=== PATIENT | female | born 1955 | race Caucasian/White ===

== ENCOUNTER 2020-08-21 | Outpatient (REF) | payer OTHER, SELFPAY ==
--- NOTE | 2020-08-21 08:51 | MR_ITS ---
EXAMINATION: MR BREAST WITHOUT AND WITH CONTRAST, BILATERAL CLINICAL INFORMATION: 65-year-old for history of lobular carcinoma in situ right breast high-risk screening. COMPARISON: MRI of 08/03/2019, 12/09/2018, 08/12/2018, and 01/21/2017. Correlation to mammogram of 04/11/2020. TECHNIQUE: Imaging was performed with a dedicated breast coil. Prior to the administration of contrast, bilateral axial T1 and bilateral axial T2 weighted sequences were obtained. After the uneventful administration of?6 mL of Gadavist, dynamic contrast-enhanced VIBRANT series through the breasts in the axial plane were performed. Subtracted images were performed and reviewed. A delayed sagittal sequence through both breasts was acquired. Additionally, CAD post-processing, including maximum intensity projections, 3-D reconstructions and kinetic analysis, were performed an independent workstation and reviewed by the interpreting radiologist is a portion of this exam. FINDINGS: The patient's fibroglandular tissue is heterogeneously dense. There is mild background enhancement. LEFT BREAST: There is a stable enhancing T2 bright focus in the 9 o'clock position which may represent an intramammary lymph node. The 7 mm enhancing T2 bright mass in the 9 o'clock position of the breast 4 cm from the nipple is also stable and unchanged. There are no new areas of mass or non-mass enhancement suspicious of malignancy. There are no secondary signs of malignancy. There are no additional findings on T2-weighted imaging or kinetic curve analysis. RIGHT BREAST: The 2 mm enhancing focus previously described in the 9 o'clock position of the breast breast is not seen on this study . There are no new areas of mass or non-mass enhancement. There are no secondary signs of malignancy. The previously described enhancing focus on the skin in the 1-2 o'clock position is also not seen at this time. There are no additional findings on T2-weighted imaging or kinetic curve analysis. There is no suspicious internal mammary chain or axillary adenopathy. Limited views of the chest and abdomen are unremarkable. MR/MR breast BI wo/w con IMPRESSION: 1. Stable findings in the left breast. 2. No suspicious MRI findings in either breast. ASSESSMENT: LEFT BREAST: BI-RADS 2 benign. RIGHT BREAST: BI-RADS 1 negative. RECOMMENDATIONS: Routine mammographic imaging as per most recent study and MRI as per high risk protocol.
[2020-08-21 09:29] LABS: Blood Urea Nitrogen 9 mg/dL (9-16); Estimated Glomerular Filt Rate > 60
== END 2020-08-21 00:01 | disposition home or self-care (01) ==
LOC: HO.MRI
PROVIDERS: PCP Internal Medicine; Visit Provider Surgery
DX: D05.01 Lobular carcinoma in situ of right breast (principal); R92.2 Inconclusive mammogram
CPT/HCPCS: 77049; 82565; 84520; A9585

== ENCOUNTER → 2020-08-28 15:43 | Outpatient (BNVA) | payer OTHER, SELFPAY | PROVIDERS: PCP Internal Medicine; Visit Provider Surgery | DX: Z76.89 Persons encountering health services in other specified circumstances (principal) ==

== ENCOUNTER 2021-01-08 09:25 | Outpatient (REF) | payer OTHER, SELFPAY ==
[2021-01-08 09:49] LABS: COVID-19 Test Negative (Negative); IDNOW Serial# 55D5AD1C
== END 2021-01-08 09:26 | disposition home or self-care (01) ==
LOC: HO.LAB 09:25
PROVIDERS: Visit Provider Internal Medicine
DX: Z20.822 Contact with and (suspected) exposure to COVID-19 (principal)
CPT/HCPCS: 36415; 87635; C9803

== ENCOUNTER → 2021-02-25 09:28 | Outpatient (BNVA) | payer OTHER, SELFPAY | PROVIDERS: PCP Internal Medicine; Visit Provider Surgery ==

== ENCOUNTER 2021-05-06 07:28 | Outpatient (REF) | payer MEDICARE, OTHER, SELFPAY ==
--- NOTE | ~2021-05-06 | MM_ITS ---
EXAMINATION: MM SCREENING MAMMOGRAPHY DIGITAL BREAST TOMOSYNTHESIS, BILATERAL CLINICAL INFORMATION: Screening. Asymptomatic. History of left breast biopsy in 2011 showing atypical lobular hyperplasia. The lifetime risk of breast cancer based on the Tyrer-Cuzick Model is 23.6%. Additional annual screening with breast MRI may be of benefit in women with a Score of 20% or greater. COMPARISON: Mammography: 08/21/2020 and studies dating back to 10/20/2011. TECHNIQUE: Digital breast tomosynthesis was performed in both the craniocaudal and mediolateral oblique views along with computer-aided detection (CAD). Synthesized 2D images are generated from the tomosynthesis. FINDINGS: The breasts are extremely dense, which lowers the sensitivity of mammography (ACR BI-RADS breast composition Category d). No suspicious left breast findings are identified. Within the superior aspect of the right breast approximately 4 cm from the nipple, there is an asymmetric density with questioned spiculation with no definite craniocaudal correlation identified which is similar to but looks slightly more prominent than on prior studies. Spot compression film and possible ultrasound recommended. MM/MM tomosynthesis screening BI IMPRESSION: Slightly more prominent, irregularly marginated density superior aspect of the right breast. ASSESSMENT: BI-RADS 0: Incomplete - Need Additional Imaging Evaluation RECOMMENDATION: 1. Additional views of the right breast. 2. Targeted ultrasound if warranted after review of the additional views. 3. Radiology department staff will contact the patient for additional imaging. This patient's information was entered into a reminder system with a target due date for their next mammogram.
--- NOTE | ~2021-05-06 | MM_ITS ---
EXAMINATION: BONE DENSITOMETRY CLINICAL INDICATION: Osteoporosis. COMPARISON: Previous BD dated 12/11/2016 and baseline BD dated 12/15/2011. TECHNIQUE: Using a [employer] DXA System (software version: 13.1) manufactured by [employer], dual-energy x-ray absorptiometry was performed of the lumbar spine and left hip. The images are of good technical quality. Summary results are attached. FINDINGS: AP SPINE L1-L4: Current: BMD 1.119 g/cm2, Z-score 1.3, T-score -0.5, normal, 0.3% decrease from previous, 9.8% decrease from baseline (<5% change is not significant). Prior: BMD 1.122 g/cm2. Baseline: BMD 1.240 g/cm2. LEFT FEMUR, NECK: Current: BMD 0.898 g/cm2, Z-score 0.6, T-score -1.0, normal. Prior: BMD 0.907 g/cm2. Baseline: BMD 0.967 g/cm2. LEFT FEMUR, TOTAL: Current: BMD 0.974 g/cm2, Z-score 1.1, T-score -0.3, normal, 0.1% increase from previous, 6.2% decrease from baseline (<5% change is not significant). Prior: BMD 0.973 g/cm2. Baseline: BMD 1.038 g/cm2. IDENTIFIED RISK FACTORS: Menopause. HISTORY OF FRACTURE: None listed. MEDICATIONS: Vitamin D. MM/XR DEXA axial skeleton IMPRESSION: 1. DIAGNOSIS: Normal bone density based on the lowest T-score value of -1.0 in the femoral neck applying World Health Organization criteria. 2. 10-YEAR FRACTURE RISK PREDICTION, FRAX: According to the guidelines, FRAX calculation should only be performed on patients in the osteopenia bone density category. Therefore, FRAX was not performed on this patient. 3. Treatment Recommendations: NOF guidelines recommend consideration for treatment in postmenopausal women and men age 50 and older presenting with the following: -A hip or vertebral (clinical or morphometric) fracture. -T-score less than or equal to -2.5 at the femoral neck or spine after appropriate evaluation to exclude secondary causes. -Low bone mass at the hip or spine and a 10-year fracture probability by FRAX of greater than or equal to 3% for hip fracture or greater than or equal to 20% for major osteoporotic fracture based on the [place] adapted WHO algorithm. 4. Other Recommendations: All treatment decisions require clinical judgment and consideration of individual patient factors, including patient preferences, comorbidities, previous drug use, risk factors not captured in the FRAX model (e.g. frailty, falls, vitamin D deficiency, increased bone turnover, interval significant decline in bone density) and possible under or overestimation of fracture risk by FRAX. FUTURE SCAN RECOMMENDATION: People with diagnosed cases of osteoporosis or at high risk for fracture should have regular bone mineral density tests. For patients eligible for Medicare, routine testing is allowed once every 2 years. The testing frequency can be increased to one year for patients who have rapidly progressing disease, those who are receiving or discontinuing medical therapy to restore bone mass, or have additional risk factors.
== END 2021-05-06 07:29 | disposition home or self-care (01) ==
LOC: HO.MAMMO 07:28
PROVIDERS: Visit Provider Obstetrics & Gynecology
DX: Z12.31 Encounter for screening mammogram for malignant neoplasm of breast (principal); Z13.820 Encounter for screening for osteoporosis; Z78.0 Asymptomatic menopausal state; Z79.899 Other long term (current) drug therapy
CPT/HCPCS: 77063; 77067; 77080

== ENCOUNTER 2021-05-13 07:49 | Outpatient (REF) | payer MEDICARE, OTHER, SELFPAY ==
--- NOTE | ~2021-05-13 | MM_ITS ---
EXAMINATION: MM DIAGNOSTIC DIGITAL BREAST TOMOSYNTHESIS, right breast CLINICAL INFORMATION: History of right breast LCIS status post lumpectomy. COMPARISON: Mammography: May 06, 2021 and studies dating back to October 20, 2011 TECHNIQUE: Digital breast tomosynthesis is performed. 2D images are generated from the tomosynthesis. The following views are obtained: Right medial lateral oblique projection as well as spot compression right 90 degree mediolateral projection. FINDINGS: The breasts are heterogeneously dense, which may obscure small masses (ACR BI-RADS breast composition Category c). The additional views demonstrate the region of architectural distortion to lay in the region of the previous lumpectomy site. Results are provided to the patient at time of visit by the technologist. MM/MM tomosynthesis added views R IMPRESSION: No significant changes from prior imaging. ASSESSMENT: BI-RADS 2: Benign RECOMMENDATION: Routine annual mammography screening due in 12 months. This patient's information was entered into a reminder system with a target due date for their next mammogram.
== END 2021-05-13 07:50 | disposition home or self-care (01) ==
LOC: HO.MAMMO 07:49
PROVIDERS: Visit Provider Obstetrics & Gynecology
DX: R92.2 Inconclusive mammogram (principal)
CPT/HCPCS: 77061; 77065

== ENCOUNTER 2021-09-17 09:07 | Outpatient (REF) | payer OTHER, SELFPAY ==
--- NOTE | ~2021-09-17 | MR_ITS ---
EXAMINATION: MR BREAST WITHOUT AND WITH CONTRAST, BILATERAL CLINICAL INFORMATION: High-risk screening. History of right LCIS. COMPARISON: MRI 08/03/2019, 08/21/2020 TECHNIQUE: Imaging was performed with a dedicated breast coil. Prior to the administration of contrast, bilateral axial T1 and bilateral axial T2 weighted sequences were obtained. After the uneventful administration of?6 mL of Gadavist, dynamic contrast-enhanced VIBRANT series through the breasts in the axial plane were performed. Subtracted images were performed and reviewed. A delayed sagittal sequence through both breasts was acquired. Additionally, CAD post-processing, including maximum intensity projections, 3-D reconstructions and kinetic analysis, were performed an independent workstation and reviewed by the interpreting radiologist is a portion of this exam. FINDINGS: The patient's fibroglandular tissue demonstrates minimal background enhancement. LEFT BREAST: No suspicious masslike or non-masslike enhancement. No abnormal skin thickening or nipple retraction. No abnormal architectural distortion. Review of the T2 weighted images demonstrates no fibrocystic changes or dilated ducts. Review of kinetic images reveals no additional findings. RIGHT BREAST: No suspicious masslike or non-masslike enhancement. No abnormal skin thickening or nipple retraction. No abnormal architectural distortion. Review of the T2 weighted images demonstrates no fibrocystic changes or dilated ducts. Review of kinetic images reveals no additional findings. There is no suspicious internal mammary chain or axillary adenopathy. Limited views of the chest and abdomen are unremarkable. MR/MR breast BI wo/w con IMPRESSION: No MR specific evidence of malignancy. ASSESSMENT: LEFT BREAST: BI-RADS 1-Negative RIGHT BREAST: BI-RADS 1-Negative RECOMMENDATIONS: Clinical follow-up. Continued annual mammographic surveillance. Further breast MRI as risk factors dictate.
[2021-09-17 09:32] LABS: Blood Urea Nitrogen 12 mg/dL (9-16); Estimated Glomerular Filt Rate > 60
== END 2021-09-17 09:08 | disposition home or self-care (01) ==
LOC: HO.MRI 09:07
PROVIDERS: Visit Provider Surgery
DX: Z86.000 Personal history of in-situ neoplasm of breast (principal)
CPT/HCPCS: 36415; 77049; 82565; 84520; A9585

== ENCOUNTER → 2021-10-14 09:04 | Outpatient (BNVA) | payer OTHER, SELFPAY | PROVIDERS: PCP Internal Medicine; Visit Provider Surgery ==

== ENCOUNTER 2022-05-11 07:22 | Outpatient (REF) | payer OTHER, SELFPAY ==
--- NOTE | ~2022-05-11 | MM_ITS ---
EXAMINATION: MM SCREENING DIGITAL BREAST TOMOSYNTHESIS, BILATERAL CLINICAL INFORMATION: Screening. Asymptomatic. Right LCIS status post lumpectomy, 2010. The lifetime risk of breast cancer based on the Tyrer-Cuzick Model is 39%. COMPARISON: Mammography: 05/13/2021, 05/06/2021, 04/11/2020, 12/23/2018; breast MR 09/17/2021. TECHNIQUE: Digital breast tomosynthesis is performed in both the craniocaudal and mediolateral oblique views along with computer-aided detection (CAD). Synthesized 2D images are generated from the tomosynthesis. FINDINGS: The breasts are heterogeneously dense, which may obscure small masses (ACR BI-RADS breast composition Category c). Parenchymal pattern is similar to prior studies. There is no developing density or architectural abnormality. Scattered punctate calcifications are similar to prior studies. No interval mass. The axilla and skin contours are unremarkable. No significant changes. MM/MM tomosynthesis screening BI IMPRESSION: No mammographic evidence of malignancy. ASSESSMENT: BI-RADS 1: Negative RECOMMENDATION: -Routine annual mammography screening. -The lifetime risk of breast cancer based on the Tyrer-Cuzick Model is 39%. Additional annual adjunct screening with breast MRI may be of benefit in women with a risk score of 20% or greater. This patient's information was entered into a reminder system with a target due date for their next mammogram.
== END 2022-05-11 07:23 | disposition home or self-care (01) ==
LOC: HO.MAMMO 07:22
PROVIDERS: Absent Provider Surgery; Visit Provider Internal Medicine
DX: Z12.31 Encounter for screening mammogram for malignant neoplasm of breast (principal)
CPT/HCPCS: 77063; 77067

== ENCOUNTER 2022-09-29 08:46 | Outpatient (REF) | payer OTHER, SELFPAY ==
--- NOTE | ~2022-09-29 | MR_ITS ---
EXAMINATION: MR BREAST WITHOUT AND WITH CONTRAST, BILATERAL CLINICAL INFORMATION: High-risk screening. History of lobular neoplasia right breast. Dense breasts. COMPARISON: 09/17/2021, 08/21/2020, and selected images from priors. Mammography from 05/11/2022. TECHNIQUE: Imaging was performed with a dedicated breast coil. Prior to the administration of contrast, bilateral axial T1 and bilateral axial T2 weighted sequences were obtained. After the uneventful administration of?6 mL of Gadavist, dynamic contrast-enhanced VIBRANT series through the breasts in the axial plane were performed. Subtracted images were performed and reviewed. A delayed sagittal sequence through both breasts was acquired. Additionally, CAD post-processing, including maximum intensity projections, 3-D reconstructions and kinetic analysis, were performed an independent workstation and reviewed by the interpreting radiologist is a portion of this exam. FINDINGS: The breasts are comprised of heterogeneous, dense fibroglandular parenchyma. The parenchyma undergoes mild background enhancement. LEFT BREAST: There is a dominant 10 mm non-mass enhancement at 9 o'clock, 4.5 cm from the nipple (series 100 image 75/114). This is decreased in conspicuity compared with 2020. T2 bright with type I and II enhancement kinetics. Recommend continued yearly followup. A similar smaller 5 mm non-mass enhancement at 8 o'clock, 5 cm from the nipple (image 79/114) is likewise stable. A small stable 2 mm focus at 3 o'clock, 2 cm from the nipple (image 75). Foci of skin enhancement are noted along the medial aspect of the left breast (example image 55). Clinical correlation suggested. RIGHT BREAST: A dominant 5 mm focus at 9 o'clock, 2.5 cm from the nipple (image 70/114) is unchanged. T2 bright with type I progressive enhancement kinetics. A nearby similar 4 mm focus at 10 o'clock, 2.5 cm from the nipple (image 69) is likewise stable. A smaller similar 3 mm focus in the 3 o'clock, deep position of the right breast (image 68) is likewise stable. No additional findings on T2-weighted sequences, volume renderings or kinetic analysis. There is no suspicious internal mammary chain or axillary adenopathy. T2 bright nonenhancing 10 mm mass in the dome of the liver most consistent with a cyst, unchanged compared with priors. MR/MR breast BI wo/w con IMPRESSION: No screening MR evidence of breast malignancy. Stable bilateral foci as above. ASSESSMENT: LEFT BREAST: BI-RADS 2, benign finding. RIGHT BREAST: BI-RADS 2, benign finding. RECOMMENDATIONS: Yearly bilateral breast MRI per published guidelines in high-risk patients.
== END 2022-09-29 08:47 | disposition home or self-care (01) ==
LOC: HO.MRI 08:46
PROVIDERS: Visit Provider Surgery
DX: Z86.000 Personal history of in-situ neoplasm of breast (principal); Z91.89 Other specified personal risk factors, not elsewhere classified
CPT/HCPCS: 77049; A9585

== ENCOUNTER → 2022-11-03 12:49 | Outpatient (BNVA) | payer OTHER, SELFPAY | PROVIDERS: PCP Internal Medicine; Visit Provider Psychiatry & Neurology Psychiatry | DX: Z86.000 Personal history of in-situ neoplasm of breast (principal) ==

== ENCOUNTER → 2022-11-19 08:50 | Outpatient (BNVA) | payer OTHER, SELFPAY | PROVIDERS: PCP Internal Medicine; Visit Provider Surgery | DX: Z13.89 Encounter for screening for other disorder (principal) ==

== ENCOUNTER 2023-05-06 10:07 | Outpatient (REF) | payer OTHER, SELFPAY ==
[2023-05-06 12:48] LABS: MANUAL DIFF FLAG NO
[2023-05-06 12:52] LABS: Basophils Absolute Auto 0.1 X10*3/uL (0.0-0.2); Basophils Percent Auto 1.1 % (0-2); Eosinophils Absolute Auto 0.5 X10*3/uL (0.0-0.4); Eosinophils Percent Auto 8.6 % (0-4); Hemoglobin 12.5 g/dl (12.0-16.0); Imm Gran Abs Auto 0.01 X10*3/uL (0.00-0.03); Imm Gran Pct Auto 0.2 % (0.0-0.4); Lymphocytes Absolute Auto 1.4 X10*3/uL (1.2-4.9); Lymphocytes Percent Auto 24.5 % (20-40); Mean Corpuscular HGB Conc 32.1 g/dl (31.0-35.0); Mean Corpuscular Hemoglobin 30.3 pg (27.0-33.0); Mean Corpuscular Volume 94.7 fL (80.0-98.0); Mean Platelet Volume 9.7 fL (9.4-12.3); Monocytes Absolute Auto 0.7 X10*3/uL (0.1-1.2); Monocytes Percent Auto 12.3 % (2-11); Neutrophils Percent Auto 53.3 % (45-73); Platelet Count 416 X10*3/uL (160-400); Red Blood Count 4.12 X10*6/uL (4.20-5.50); Red Cell Distribution Width 13.8 % (11.0-16.0); White Blood Count 5.6 X10*3/uL (4.8-10.8)
[2023-05-06 12:56] LABS: INTERNATIONAL NORM RATIO 0.9 (0.9-1.1); Prothrombin Time 11.2 SEC (11.1-13.3)
[2023-05-06 13:33] LABS: Erythrocyte Sedimentation Rate 34 MM/HR (0-20)
[2023-05-06 14:04] LABS: Alanine Aminotransferase 49 U/L (0-31); Albumin Level 4.1 g/dL (3.5-5.0); Alkaline Phosphatase 513 U/L (39-117); Aspartate Amino Transferase 47 U/L (5-31); Bilirubin Direct 0.2 mg/dL (0.0-0.5); Bilirubin Total 0.5 mg/dL (0.0-1.0); C Reactive Protein 0.74 mg/dL (< or = 0.50); Iron 90 mcg/dL (30-160); Percent Iron Saturation 32 % (15-50); Total Iron Binding Capacity 285 mcg/dL (228-428); Total Protein 7.6 g/dL (6.5-8.0); Unsaturated Iron Binding 195 ug/dL
[2023-05-06 14:18] LABS: Ferritin 33 ng/mL (10-250)
[2023-05-07 09:46] LABS: HBS Num1 0.24 mIU/mL (0-7.99); HBc Num1 0.12 S/CO (0.00-0.79); HBsAGNum1 0.32 S/CO (0.00-0.99); Hepatitis A Antibody IgM 0.15 Index (0-0.79); Hepatitis B Core Antibody Nonreactive (Nonreactive); Hepatitis B Surface Antigen Negative (Negative); ~HepC Num1 0.19 S/CO (0.00-0.79); ~Hepatitis A Antibody IgM Nonreactive (Nonreactive); ~Hepatitis B Surface Antibody NONREACTIVE (Nonreactive); ~Hepatitis C Antibody Nonreactive (Nonreactive)
[2023-05-10 13:29] LABS: Alpha 1 Anti-trypsin 146 mg/dL (83-199)
[2023-05-11 11:35] LABS: Anti Nuclear Antibody Screen NEGATIVE (NEGATIVE)
[2023-05-11 13:48] LABS: Smooth Muscle Antibody 38 U (<20)
[2023-05-11 14:24] LABS: Mitochondrial Antibodies NEGATIVE (NEGATIVE)
[2023-05-12 18:13] LABS: Alk.Phos Iso. Macrohepatic 19 % (<=0); Alk.Phos Isoenzymes Bone 28 % (28-66); Alk.Phos Isoenzymes Intest 0 % (1-24); Alk.Phos Isoenzymes Liver 53 % (25-69); Alk.Phos Isoenzymes Placental 0 % (<=0); Alk.Phos Isoenzymes Total 462 U/L (37-153)
== END 2023-05-06 10:08 | disposition home or self-care (01) ==
LOC: HO.10HDL 10:07
PROVIDERS: Visit Provider Internal Medicine
DX: R79.89 Other specified abnormal findings of blood chemistry (principal); R74.8 Abnormal levels of other serum enzymes
CPT/HCPCS: 36415; 80076; 82103; 82728; 83540; 84080; 85025; 85610; 85652; 86015; 86038; 86140; 86381; 86704; 86706; 86709; 86803; 87340

== ENCOUNTER 2023-05-13 07:21 | Outpatient (REF) | payer OTHER, SELFPAY ==
--- NOTE | ~2023-05-13 | MM_ITS ---
EXAMINATION: MM SCREENING DIGITAL BREAST TOMOSYNTHESIS, BILATERAL CLINICAL INFORMATION: Screening. Asymptomatic. The patient has a history of prior right breast excision for LCIS in 2010. COMPARISON: Mammography: This study is compared with prior exams dating back to 2020. TECHNIQUE: Digital breast tomosynthesis is performed in both the craniocaudal and mediolateral oblique views along with computer-aided detection (CAD). Synthesized 2D images are generated from the tomosynthesis. FINDINGS: The breasts are heterogeneously dense, which may obscure small masses (ACR BI-RADS breast composition Category c). There are no significant masses, abnormal calcifications, or other abnormalities. There are postsurgical changes in the lateral aspect of the right breast from prior surgery for LCIS. MM/MM tomosynthesis screening BI IMPRESSION: No mammographic evidence of malignancy. ASSESSMENT: BI-RADS BI-RADS 2 - Benign Findings RECOMMENDATION: Routine annual mammography screening. 1 year F/U This examination should not preclude the clinical evaluation of a suspicious palpable abnormality. This patient's information was entered into a reminder system with a target due date for their next mammogram.
== END 2023-05-13 07:22 | disposition home or self-care (01) ==
LOC: HO.MAMMO 07:21
PROVIDERS: PCP Nurse Practitioner Primary Care; Visit Provider Nurse Practitioner Primary Care
DX: Z12.31 Encounter for screening mammogram for malignant neoplasm of breast (principal)
CPT/HCPCS: 77063; 77067

== ENCOUNTER → 2023-05-13 07:30 | Outpatient (BNV) | payer OTHER, SELFPAY | PROVIDERS: PCP Nurse Practitioner Primary Care; Visit Provider Radiology Diagnostic Radiology | DX: Z12.31 Encounter for screening mammogram for malignant neoplasm of breast (principal) | CPT/HCPCS: 77063; 77067 ==

== ENCOUNTER 2023-05-22 09:59 | Outpatient (REF) | payer OTHER, SELFPAY ==
[2023-05-22 11:34] LABS: Alanine Aminotransferase 46 U/L (0-31); Alkaline Phosphatase 506 U/L (39-117); Anion Gap 12 (12-20); Aspartate Amino Transferase 41 U/L (5-31); Bilirubin Direct 0.1 mg/dL (0.0-0.5); Bilirubin Total 0.5 mg/dL (0.0-1.0); Blood Urea Nitrogen 11 mg/dL (9-16); Calcium 10.5 mg/dL (8.4-10.2); Carbon Dioxide 28 mmol/L (22-29); Chloride 108 mmol/L (96-108); Estimated Glomerular Filt Rate > 60; Glucose Random 90 mg/dL (60-115); Potassium 4.3 mmol/L (3.3-5.1); Sodium 144 mmol/L (135-145); Total Protein 7.4 g/dL (6.5-8.0)
[2023-05-25 13:54] LABS: Mitochondrial Antibodies NEGATIVE (NEGATIVE)
[2023-05-27 06:35] LABS: Liver Kidney Microsomal Ab <=20.0 U (<=20.0)
== END 2023-05-22 10:00 | disposition home or self-care (01) ==
LOC: HO.LAB 09:59
PROVIDERS: PCP Nurse Practitioner Primary Care; Visit Provider Internal Medicine
DX: R74.8 Abnormal levels of other serum enzymes (principal); R79.89 Other specified abnormal findings of blood chemistry
CPT/HCPCS: 36415; 80048; 80076; 86376; 86381

== ENCOUNTER 2023-05-24 10:19 | Outpatient (REF) | payer OTHER, SELFPAY ==
--- NOTE | ~2023-05-24 | MR_ITS ---
EXAMINATION: MR ABDOMEN WITHOUT AND WITH CONTRAST CLINICAL INFORMATION: Elevated alkaline phosphatase COMPARISON: None available. TECHNIQUE: MR abdomen was performed without and with use of 5.5 mL intravenous Gadavist Postcontrast images are performed in multiphase dynamic sequences. Imaging was performed in 3 planes. FINDINGS: LUNG BASES: The visualized lung bases are unremarkable. LIVER, GALLBLADDER, AND BILIARY TREE: The liver is normal in size, smooth in contour, and normal in signal. There are 2 small simple cysts in the left lobe of the liver, too small to characterize. No other focal hepatic lesion or biliary ductal dilatation is present. Gallbladder revealed no stones but sludge no wall thickening, or pericholecystic fluid collection CBD is not dilated. No evidence of choledocholithiasis. PANCREAS: Unremarkable. SPLEEN: Normal. ADRENAL GLANDS: Normal. KIDNEYS AND URETERS: The kidneys are normal in size, shape, and enhance symmetrically. No hydronephrosis. No perinephric stranding. GASTROINTESTINAL TRACT: No bowel obstruction. No ascites or fluid collection. ABDOMINAL WALL: No significant hernia is appreciated. LYMPH NODES: No lymphadenopathy. VASCULAR: Unremarkable. OSSEOUS STRUCTURES: Marrow signal normal. MR/MR abdomen wo/w con IMPRESSION: 1. Gallbladder sludge. No stones. No biliary ductal dilatation. No evidence of choledocholithiasis. 2. 2 small simple cysts in the left lobe of the liver, too small to characterize.
[2023-05-24] MEDS: gadobutroL 7.5 ML VIAL IVPUSH (11:47)
== END 2023-05-24 10:20 | disposition home or self-care (01) ==
LOC: HO.MRI 10:19
PROVIDERS: PCP Nurse Practitioner Primary Care; Visit Provider Internal Medicine
DX: R74.8 Abnormal levels of other serum enzymes (principal); R79.89 Other specified abnormal findings of blood chemistry
CPT/HCPCS: 74183; A9585

== ENCOUNTER 2023-06-08 13:38 | Outpatient (REF) | payer OTHER, SELFPAY ==
[2023-06-08 13:53] LABS: MANUAL DIFF FLAG NO
[2023-06-08 14:15] LABS: Basophils Percent Auto 0.6 % (0-2); Eosinophils Absolute Auto 0.3 X10*3/uL (0.0-0.4); Eosinophils Percent Auto 5.1 % (0-4); Hemoglobin 12.4 g/dl (12.0-16.0); Imm Gran Abs Auto 0.02 X10*3/uL (0.00-0.03); Imm Gran Pct Auto 0.4 % (0.0-0.4); Lymphocytes Absolute Auto 1.2 X10*3/uL (1.2-4.9); Mean Corpuscular HGB Conc 32.6 g/dl (31.0-35.0); Mean Corpuscular Hemoglobin 30.2 pg (27.0-33.0); Mean Corpuscular Volume 92.7 fL (80.0-98.0); Mean Platelet Volume 9.1 fL (9.4-12.3); Monocytes Absolute Auto 0.5 X10*3/uL (0.1-1.2); Monocytes Percent Auto 9.2 % (2-11); Neutrophils Percent Auto 60.7 % (45-73); Platelet Count 389 X10*3/uL (160-400); Red Cell Distribution Width 13.7 % (11.0-16.0); White Blood Count 4.9 X10*3/uL (4.8-10.8)
[2023-06-08 14:28] LABS: Prothrombin Time 11.6 SEC (11.1-13.3)
[2023-06-08 14:31] LABS: Partial Thromboplastin Time 42.8 SEC (26.0-36.4)
== END 2023-06-08 13:39 | disposition home or self-care (01) ==
LOC: HO.LAB 13:38
PROVIDERS: PCP Nurse Practitioner Primary Care; Visit Provider Internal Medicine
DX: R74.8 Abnormal levels of other serum enzymes (principal); R79.89 Other specified abnormal findings of blood chemistry
CPT/HCPCS: 36415; 85025; 85610; 85730

== ENCOUNTER 2023-06-15 07:39 | Day surgery (SDC) | payer OTHER, SELFPAY ==
[2023-06-15] VITALS (10 sets, daily range): BP systolic 137–161; BP diastolic 60–84; PULSE 48–66; RESP 16; TEMP 36.1–36.4; O2SAT 96–99; BMI 22.7
--- NOTE | ~2023-06-15 | US_ITS ---
PROCEDURE: US GUIDED LIVER BIOPSY CLINICAL INFORMATION: Elevated LFTs. PROCEDURE: Ultrasound-guided liver biopsy. Risks and benefits and possible complications were discussed with the patient and consent form was signed. The abdomen was prepped and draped in usual sterile fashion. 1% lidocaine was used for anesthesia. A 17-gauge coaxial needle was inserted through the skin and soft tissues and into the right lobe of the liver. A total of 3, 18-gauge cores were performed. Permanent ultrasound images were archived. 2 Gelfoam torpedoes were inserted through the coaxial and administered into the biopsy tract and at the level of the capsule. The needle was then removed. The specimens were placed in formalin and sent to pathology. The patient tolerated the procedure well. The procedure was performed under moderate sedation with a dedicated nurse for monitoring of vital signs. The patient received a total of 1.5 Versed, and 75 Fentanyl. Moderate sedation time: 15 min. This procedure was performed by Kush Ball PA-C, and directly supervised by Dr. Polo. US/US biopsy liver IMPRESSION: Ultrasound-guided liver biopsy.
[2023-06-15 08:30] LABS: MANUAL DIFF FLAG NO
[2023-06-15 08:31] LABS: Basophils Percent Auto 0.8 % (0-2); Eosinophils Absolute Auto 0.5 X10*3/uL (0.0-0.4); Eosinophils Percent Auto 9.5 % (0-4); Hematocrit 38.1 % (37.0-47.0); Hemoglobin 12.2 g/dl (12.0-16.0); Imm Gran Abs Auto 0.01 X10*3/uL (0.00-0.03); Imm Gran Pct Auto 0.2 % (0.0-0.4); Lymphocytes Absolute Auto 1.4 X10*3/uL (1.2-4.9); Lymphocytes Percent Auto 29.2 % (20-40); Mean Corpuscular Hemoglobin 29.6 pg (27.0-33.0); Mean Corpuscular Volume 92.5 fL (80.0-98.0); Mean Platelet Volume 8.9 fL (9.4-12.3); Monocytes Absolute Auto 0.5 X10*3/uL (0.1-1.2); Monocytes Percent Auto 11.3 % (2-11); Neutrophils Absolute Auto 2.3 x10*3/uL (2.0-8.3); Platelet Count 377 X10*3/uL (160-400); Red Blood Count 4.12 X10*6/uL (4.20-5.50); Red Cell Distribution Width 13.5 % (11.0-16.0); White Blood Count 4.8 X10*3/uL (4.8-10.8)
[2023-06-15 08:38] LABS: INTERNATIONAL NORM RATIO 0.9 (0.9-1.1); Prothrombin Time 11.2 SEC (11.1-13.3)
[2023-06-15 08:41] LABS: Partial Thromboplastin Time 45.8 SEC (26.0-36.4)
[2023-06-15] MEDS: Lidocaine HCl 1 % 20 ML VIAL 10 ML SUBCUT (09:56)
== END 2023-06-15 12:15 | disposition home or self-care (01) ==
PROVIDERS: Physician Assistant Surgical; Radiology Vascular & Interventional Radiology; PCP Nurse Practitioner Primary Care; Visit Provider Internal Medicine
DX: R74.8 Abnormal levels of other serum enzymes (principal); R79.89 Other specified abnormal findings of blood chemistry; K76.89 Other specified diseases of liver; I10 Essential (primary) hypertension; F41.1 Generalized anxiety disorder; D64.9 Anemia, unspecified; E78.5 Hyperlipidemia, unspecified; I78.0 Hereditary hemorrhagic telangiectasia; Z79.899 Other long term (current) drug therapy
CPT/HCPCS: 36415; 47000; 76942; 85025; 85610; 85730; 86850; 86900; 86901; 88307; 88313; 99152; J2250; J3010

== ENCOUNTER → 2023-06-15 09:00 | Outpatient (BNV) | payer OTHER, SELFPAY | PROVIDERS: PCP Nurse Practitioner Primary Care; Visit Provider Radiology Vascular & Interventional Radiology | DX: R74.8 Abnormal levels of other serum enzymes (principal) | CPT/HCPCS: 47000; 76942; 99152 ==

== ENCOUNTER 2023-06-22 11:02 | Outpatient (REF) | payer OTHER, SELFPAY ==
[2023-06-22 12:29] LABS: Alanine Aminotransferase 31 U/L (0-31); Albumin Level 4.1 g/dL (3.5-5.0); Alkaline Phosphatase 312 U/L (39-117); Aspartate Amino Transferase 34 U/L (5-31); Bilirubin Direct 0.2 mg/dL (0.0-0.5); Bilirubin Total 0.5 mg/dL (0.0-1.0); Total Protein 7.3 g/dL (6.5-8.0)
== END 2023-06-22 11:03 | disposition home or self-care (01) ==
LOC: HO.LAB 11:02
PROVIDERS: Visit Provider Internal Medicine
DX: K74.3 Primary biliary cirrhosis (principal); R79.89 Other specified abnormal findings of blood chemistry
CPT/HCPCS: 36415; 80076

== ENCOUNTER 2023-06-25 10:18 | Outpatient (AMB) | payer OTHER, SELFPAY ==
--- NOTE | 2023-06-25 10:26 | MHC.OFFVIS ---
Intake Vital Signs 06/25/23 10:37 Height 5 ft 3 in Weight 125 lb 6 oz BMI 22.2 BP 159/89 H Blood Pressure Location Lt brachial Position Sitting Pulse 97 Intake Visit Reasons: 6 month breast exam Intake Note: Patient is seen in office for 6 month follow up visit, breast exam. 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 Soto returning for a six-month follow-up high risk breast examination. 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 She has been followed with yearly mammogram and breast MRI with twice yearly breast examinations. Since her last visit she denies any new palpable mass, nipple discharge, or enlarged lymph nodes. Her last mammogram of 05/13/2023 revealed no mammographic evidence of malignancy (BI-RADS 2). Her most recent breast MRI of 09/29/2022 revealed no evidence of malignancy (BI-RADS 2 bilaterally). She is 1, menarche at the age of 14, menopause at 55. She feels well and denies any ongoing breast symptoms. She was recently diagnosed with primary biliary cholangitis and will be evaluated in [place] for further management. 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 Generalized anxiety disorder Hereditary hemorrhagic telangiectasia Surgical History History of colonoscopy History of endoscopy (11/09/12) History of right breast biopsy (09/2010) Family History Mother History of skin cancer Father History of skin cancer Social History Alcohol intake: current Alcohol intake frequency: holidays/special occasions only Female Reproductive History Menstrual Age of Menarche: 14 Review of Systems Const All systems reviewed & are unremarkable except as noted in HPI and below Denies nipple discharge Skin/Breast Denies breast swelling, Denies breast skin changes, Denies breast pain, Denies breast mass, Denies change in breast shape and Denies nipple discharge Memo/Lymph Denies lymphadenopathy Physical Exam Const General: no acute distress and well developed Nutritional Appearance: well nourished Orientation/consciousness: patient oriented x3 Limitations: no limitations Neck Neck: Yes normal visual inspection and Yes no JVD Lymphatic: no lymphadenopathy noted Chest Other: Left breast: No skin change, no nipple retraction, no nipple discharge, no palpable mass, no enlarged lymph nodes. Right breast: No skin change, no nipple retraction, no nipple discharge, no palpable mass, no enlarged lymph nodes Resp Effort & Inspection: normal respiratory effort GI Inspection: Yes normal to inspection Skin Other: Warm, dry, no rash Neuro General: patient oriented x3 Extrem General: Yes no clubbing, cyanosis or edema Assessment & Plan Assessment & Plan (1) At high risk for breast cancer: Code(s): Z91.89 - Other specified personal risk factors, not elsewhere classified (2) History of lobular carcinoma in situ (LCIS) of breast: Comment: She continues to do well with regard to her history of lobular carcinoma in situ and her personal increased risk of breast carcinoma. Code(s): Z86.000 - Personal history of in-situ neoplasm of breast Plan: 68-year-old female with a prior history of lobular carcinoma in situ being followed for high risk for breast cancer. She feels well and denies any ongoing breast symptoms. Examination today reveals no suspicious findings in either breast. Her most recent mammogram and MRI have been normal. She is due for an annual breast MRI in September 2022. She should return in 6 months for follow-up examination, sooner p.r.n.. Orders: Orders breast BI wo/w con 09/29/23 Z86.000 - Personal history of in-situ neoplasm of breast, Z91.89 - Other specified personal risk factors, not elsewhere classified Coding Level of Care Code Est Pt Level 3 (84162) Diagnoses At high risk for breast cancer Z91.89 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
[2023-06-25 10:37] VITALS: BP 159/89; PULSE 97; BMI 22.2
== END 2023-06-25 10:51 | disposition home or self-care (01) ==
PROVIDERS: PCP Nurse Practitioner Primary Care; Visit Provider Surgery
DX: Z86.000 Personal history of in-situ neoplasm of breast (principal); Z91.89 Other specified personal risk factors, not elsewhere classified
CPT/HCPCS: 99213

== ENCOUNTER → 2023-06-25 10:18 | Outpatient (BNVA) | payer OTHER, SELFPAY | PROVIDERS: PCP Nurse Practitioner Primary Care; Visit Provider Surgery ==

== ENCOUNTER 2023-07-12 11:31 | Outpatient (AMB) | payer OTHER, SELFPAY ==
--- NOTE | 2023-07-12 11:45 | A.OFFPSYCH_ITS ---
Intake Intake Visit Reasons: depression Allergies No Known Allergies [No Known Allergies*] Allergy (Unverified 06/25/23 10:31) Medication List - Last Reconciled 07/12/23 by Elfego Berumen MD alprazolam (Xanax) 0.5 - 1 mg (0.5 - 1 x 1 mg) PO DAILY PRN colchicine (gout) 0.6 mg PO DAILY ferrous sulfate (FeroSul) 325 mg PO DAILY lisinopril 10 mg PO DAILY sertraline 50 mg PO DAILY ursodiol 300 mg PO BID HPI- Psychiatric Chief Complaint: depression HPI Narrative: Pt seen in f/u mood has been stable in spite of haveing primary biliary cholangitis on colchicine remains on sertraline with good effect able to travel uses Past Psychiatric History: hx of depression panic dx Mental Status Exam Mental Status Exam Narrative: Mental Status Exam Narrative: Appearance: Casually dressed Behavior: Cooperative appropriate psychomotor: Within normal limits Speech: Normal volume and prosody Thought proccess logical and goal-directed Thought content: Future oriented some thoughts re medical concerns Mood: Euthymic Affect: Appropriate to mood full affect SI:denies HI:denies VH/AH:none Delusions: None Insight/judgment: Good insight and judgment Memory/cog: Intact Assessment and Plan Assessment & Plan (1) Generalized anxiety disorder: Status: Acute Code(s): F41.1 - Generalized anxiety disorder (2) 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 No complaints of side effects medical problems patient managing getting along quite well with daughter doing quite well Counseling and coordination of Care Details: I spent [] minutes reviewing the record, seeing the patient and documenting in the medical record. Counseling provided to the patient/caregiver as outlined below. Addressed patient/caregiver concerns regarding current medication regime including effective adherence. Addressed patient/caregiver concerns regarding diagnosis and prognosis including accuracy of diagnosis, prognosis over time, impact of diagnosis. Addressed patient/caregiver concerns regarding impact of recent stressors. 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 Generalized anxiety disorder Hereditary hemorrhagic telangiectasia Surgical History History of colonoscopy History of endoscopy (11/09/12) History of right breast biopsy (09/2010) Family History Mother History of skin cancer Father History of skin cancer Social History Alcohol intake: current Alcohol intake frequency: holidays/special occasions only Social History: has 1 adopted d a physician daughter in college the patient used to work in [employer] Substance History: none Trauma History: none Coding Level of Care Code Est Pt Level 4 (42103) Diagnoses Generalized anxiety disorder F41.1 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
== END 2023-07-12 11:58 | disposition home or self-care (01) ==
LOC: HO.HOP 11:31
PROVIDERS: PCP Nurse Practitioner Primary Care; Visit Provider Psychiatry & Neurology Psychiatry
DX: F41.1 Generalized anxiety disorder (principal); Z86.000 Personal history of in-situ neoplasm of breast
CPT/HCPCS: 99214

== ENCOUNTER → 2023-07-12 11:31 | Outpatient (BNVA) | payer OTHER, SELFPAY | PROVIDERS: PCP Nurse Practitioner Primary Care; Visit Provider Psychiatry & Neurology Psychiatry ==

== ENCOUNTER 2023-09-15 10:34 | Outpatient (REF) | payer MEDICARE, SELFPAY ==
[2023-09-15 12:19] LABS: Alanine Aminotransferase 22 U/L (0-31); Albumin Level 3.9 g/dL (3.5-5.0); Alkaline Phosphatase 111 U/L (39-117); Aspartate Amino Transferase 25 U/L (5-31); Bilirubin Direct 0.2 mg/dL (0.0-0.5); Bilirubin Total 0.7 mg/dL (0.0-1.0); Total Protein 6.8 g/dL (6.5-8.0)
== END 2023-09-15 10:35 | disposition home or self-care (01) ==
LOC: HO.10HDL 10:34
PROVIDERS: Visit Provider Internal Medicine
DX: R79.89 Other specified abnormal findings of blood chemistry (principal); K74.3 Primary biliary cirrhosis
CPT/HCPCS: 36415; 80076

== ENCOUNTER 2023-10-26 09:23 | Outpatient (REF) | payer MEDICARE, SELFPAY ==
--- NOTE | ~2023-10-26 | MR_ITS ---
EXAMINATION: MR BREAST WITHOUT AND WITH CONTRAST, BILATERAL CLINICAL INFORMATION: High-risk screening. History of lobular neoplasia. LCIS right breast. Dense breasts. COMPARISON: MRI 09/29/2022 and selected images from priors. Most recent mammography 05/13/2023. TECHNIQUE: Imaging was performed with a dedicated breast coil. Prior to the administration of contrast, bilateral axial T1 and bilateral axial T2 weighted sequences were obtained. After the uneventful administration of?5.5 mL of Gadavist, dynamic contrast-enhanced VIBRANT series through the breasts in the axial plane were performed. Subtracted images were performed and reviewed. A delayed sagittal sequence through both breasts was acquired. Additionally, CAD post-processing, including maximum intensity projections, 3-D reconstructions and kinetic analysis, were performed an independent workstation and reviewed by the interpreting radiologist is a portion of this exam. FINDINGS: Exam provided for interpretation on 11/19/2023. The breasts are comprised of heterogeneous, dense fibroglandular parenchyma. Tissue undergoes mild background parenchymal enhancement. LEFT BREAST: A focus of non-mass enhancement at 3 o'clock centrally, 5 cm from the nipple (image 175/06) is unchanged. Additional scattered foci of non-mass enhancement unchanged compared with priors given differences in positioning and technique. Apparent lateral deviation of the left nipple is artifactual due to positioning. No skin thickening or nipple retraction. RIGHT BREAST: A focus of non-mass enhancement at 9 o'clock, 2 cm from the nipple remains stable. Scattered patchy and focal areas of non-mass enhancement are unchanged given differences in positioning and technique. No skin thickening or nipple retraction. There is no suspicious internal mammary chain or axillary adenopathy. A 10 mm T2 bright mass in the dome of the liver (series 5 image 33/36) without enhancement, most consistent with a cyst or hemangioma. Increase in size of 5 mm since 2019. MR/MR breast BI wo/w con IMPRESSION: No MR specific evidence of malignancy. No significant change compared with prior. ASSESSMENT: LEFT BREAST: BI-RADS 2, benign findings. RIGHT BREAST: BI-RADS 2, benign findings. RECOMMENDATIONS: Yearly bilateral breast MRI per published guidelines in high-risk patients.
[2023-10-26] MEDS: gadobutroL 7.5 ML VIAL IVPUSH (10:22)
== END 2023-10-26 09:24 | disposition home or self-care (01) ==
LOC: HO.MRI 09:23
PROVIDERS: PCP Nurse Practitioner Primary Care; Visit Provider Surgery
DX: Z86.000 Personal history of in-situ neoplasm of breast (principal); Z91.89 Other specified personal risk factors, not elsewhere classified
CPT/HCPCS: 77049; A9585

== ENCOUNTER 2023-11-09 11:49 | Outpatient (AMB) | payer MEDICARE, SELFPAY ==
--- NOTE | 2023-11-09 12:01 | MHC.OFFVISPS ---
Intake Intake Visit Reasons: depression Allergies No Known Allergies [No Known Allergies*] Allergy (Unverified 06/25/23 10:31) HPI- Psychiatric Chief Complaint: depression HPI Narrative: Pt has been feeling better liver problems responded to ursodiol and now maybe her liver problems were from simvastatin as opposed to chronic autoimmune liver disease also dealing with question carcinoma in Situ has generally been doing ok some inc anxiety doing better generally daughter shelby year she likes criminal justice she is doing better generally Past Psychiatric History: hx of depression panic dx Mental Status Exam Mental Status Exam Narrative: Mental Status Exam Narrative: Appearance: Casually dressed Behavior: Cooperative appropriate psychomotor: Within normal limits Speech: Normal volume and prosody Thought proccess logical and goal-directed Thought content: Future oriented [id number] more hopeful Mood: Euthymic Affect: Appropriate to mood full affect SI:denies HI:denies VH/AH:none Delusions: None Insight/judgment: Good insight and judgment Memory/cog: Intact Assessment and Plan Assessment & Plan (1) Generalized anxiety disorder: Status: Acute Code(s): F41.1 - Generalized anxiety disorder (2) 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 Counseling provided to the patient/caregiver as outlined below. Addressed patient/caregiver concerns regarding current medication regime including effective adherence. Addressed patient/caregiver concerns regarding diagnosis and prognosis including accuracy of diagnosis, prognosis over time, impact of diagnosis. Addressed patient/caregiver concerns regarding impact of recent stressors. 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
== END 2023-11-09 16:48 | disposition home or self-care (01) ==
LOC: HO.HOP 11:49
PROVIDERS: PCP Nurse Practitioner Primary Care; Visit Provider Psychiatry & Neurology Psychiatry
DX: F41.1 Generalized anxiety disorder (principal); Z86.000 Personal history of in-situ neoplasm of breast
CPT/HCPCS: 90833; 99213

== ENCOUNTER → 2023-11-09 11:49 | Outpatient (BNVA) | payer MEDICARE, SELFPAY | PROVIDERS: PCP Nurse Practitioner Primary Care; Visit Provider Psychiatry & Neurology Psychiatry | DX: F32.A Depression, unspecified (principal); F40.01 Agoraphobia with panic disorder; F41.1 Generalized anxiety disorder; Z86.000 Personal history of in-situ neoplasm of breast | CPT/HCPCS: 99212 ==

== ENCOUNTER 2023-12-31 08:55 | Outpatient (AMB) | payer MEDICARE, SELFPAY ==
--- NOTE | 2023-12-31 09:01 | A.OFFVIS_ITS ---
Vital Signs 12/31/23 09:11 Height 5 ft 3 in Weight 125 lb BMI 22.1 BP 167/81 H Blood Pressure Location Lt brachial Position Sitting Pulse 78 Intake Visit Reasons: 6 month breast exam Intake Note: Patient is seen in office for 6 month follow up visit, breast exam. 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 Soto returning for a six-month follow-up high risk breast examination. 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 She has been followed with yearly mammogram and breast MRI with twice yearly breast examinations. Since her last visit she denies any new palpable mass, nipple discharge, or enlarged lymph nodes. Her last mammogram of 05/13/2023 revealed no mammographic evidence of malignancy (BI- RADS 2). She is scheduled for follow-up mammogram on 05/18/2024. Her most recent breast MRI of 10/26/2023 revealed no MR evidence of malignancy (BI-RADS 2 bilaterally). She is 1, menarche at the age of 14, menopause at 55. She feels well and denies any ongoing breast symptoms. She was diagnosed with primary biliary cholangitis and was evaluated in [place]. She reports that her numbers have returned to normal. 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 Generalized anxiety disorder Hereditary hemorrhagic telangiectasia Surgical History History of colonoscopy History of endoscopy (11/09/12) History of right breast biopsy (09/2010) Family History Mother History of skin cancer Father History of skin cancer Social History Alcohol intake: current Alcohol intake frequency: holidays/special occasions only Female Reproductive History Menstrual Age of Menarche: 14 Review of Systems Const All systems reviewed & are unremarkable except as noted in HPI and below Physical Exam Const General: no acute distress and well developed Nutritional Appearance: well nourished Orientation/consciousness: patient oriented x3 Limitations: no limitations Neck Neck: Yes normal visual inspection and Yes no JVD Lymphatic: no lymphadenopathy noted Chest Other: Left breast: No skin change, no nipple retraction, no nipple discharge, no palpable mass, no enlarged lymph nodes. 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 Code(s): Z86.000 - Personal history of in-situ neoplasm of breast Category: Surgical Plan: Plan 68-year-old female with a prior history of lobular carcinoma in situ being followed for high risk for breast cancer. She feels well and denies any ongoing breast symptoms. Examination today reveals no suspicious findings in either breast. Her most recent mammogram and MRI have been normal. She is scheduled for follow-up mammogram on 05/18/2029. She should return in 6 months for follow- up examination, sooner p.r.n.. 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
[2023-12-31 09:11] VITALS: BP 167/81; PULSE 78; BMI 22.1
== END 2023-12-31 09:22 | disposition home or self-care (01) ==
PROVIDERS: PCP Nurse Practitioner Primary Care; Visit Provider Surgery
DX: Z86.000 Personal history of in-situ neoplasm of breast (principal); Z91.89 Other specified personal risk factors, not elsewhere classified
CPT/HCPCS: 99213

== ENCOUNTER → 2023-12-31 08:55 | Outpatient (BNVA) | payer MEDICARE, SELFPAY | PROVIDERS: PCP Nurse Practitioner Primary Care; Visit Provider Surgery | DX: Z86.000 Personal history of in-situ neoplasm of breast (principal); Z91.89 Other specified personal risk factors, not elsewhere classified | CPT/HCPCS: 99212 ==

== ENCOUNTER 2024-05-18 08:08 | Outpatient (REF) | payer MEDICARE, SELFPAY ==
--- NOTE | ~2024-05-18 | MM_ITS ---
EXAMINATION: MM SCREENING DIGITAL BREAST TOMOSYNTHESIS, BILATERAL CLINICAL INFORMATION: Screening. Asymptomatic. COMPARISON: Mammography: Comparison is made with available priors TECHNIQUE: Digital breast mammography with tomosynthesis is performed in both the craniocaudal and mediolateral oblique views along with computer-aided detection (CAD). FINDINGS: The breasts are heterogeneously dense, which may obscure small masses (ACR BI-RADS breast composition Category c). Right excisional biopsy changes are stable. There are no significant masses, abnormal calcifications, or other abnormalities. MM/MM tomosynthesis screening BI IMPRESSION: No mammographic evidence of malignancy. ASSESSMENT: BI-RADS BI-RADS 2 - Benign Findings RECOMMENDATION: Routine annual mammography screening. 1 year F/U This examination should not preclude the clinical evaluation of a suspicious palpable abnormality. This patient's information was entered into a reminder system with a target due date for their next mammogram. Electronically signed by: Marcy Colon DO 05/29/2024 05:15 PM EDT
== END 2024-05-18 08:09 | disposition home or self-care (01) ==
LOC: HO.MAMMO 08:08
PROVIDERS: Absent Provider Surgery; PCP Nurse Practitioner Primary Care; Visit Provider Nurse Practitioner Primary Care
DX: Z12.31 Encounter for screening mammogram for malignant neoplasm of breast (principal)
CPT/HCPCS: 77063; 77067

== ENCOUNTER → 2024-05-18 08:15 | Outpatient (BNV) | payer MEDICARE, SELFPAY | PROVIDERS: Absent Provider Surgery; PCP Nurse Practitioner Primary Care; Visit Provider Internal Medicine | DX: Z12.31 Encounter for screening mammogram for malignant neoplasm of breast (principal) | CPT/HCPCS: 77063; 77067 ==

== ENCOUNTER 2024-07-06 10:09 | Outpatient (AMB) | payer MEDICARE, SELFPAY ==
--- NOTE | 2024-07-06 10:09 | A.OFFVIS_ITS ---
Vital Signs 3 07/06/24 10:20 Height 5 ft 3 in Weight 127 lb BMI 22.5 BP 192/85 H Blood Pressure Location Lt brachial Position Sitting Pulse 76 Intake Visit Reasons: 6 month breast exam Intake Note: Patient is seen in office for 6 month follow up visit, breast exam. 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 Soto returning for a six-month follow-up high risk breast examination. 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 She has been followed with yearly mammogram and breast MRI with twice yearly breast examinations. Since her last visit she denies any new palpable mass, nipple discharge, or enlarged lymph nodes. Her last mammogram of 05/18/2024 revealed no mammographic evidence of malignancy (BI- RADS 2). Breast MRI performed on 10/26/2023 revealed no MR specific evidence of malignancy (BI-RADS 2 bilaterally). She is 1, menarche at the age of 14, menopause at 55. She feels well and denies any ongoing breast symptoms. 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 Generalized anxiety disorder Hereditary hemorrhagic telangiectasia Surgical History History of colonoscopy History of endoscopy (11/09/12) History of right breast biopsy (09/2010) Family History Mother History of skin cancer Father History of skin cancer Social History Alcohol intake: current Alcohol intake frequency: holidays/special occasions only Female Reproductive History Menstrual Age of Menarche: 14 Review of Systems Const All systems reviewed & are unremarkable except as noted in HPI and below Physical Exam Vital Signs: Last Vital Signs Pulse 76 07/06/24 10:20 BP 192/85 H 07/06/24 10:20 BMI result Body Mass Index 22.5 Const General: no acute distress and well developed Nutritional Appearance: well nourished Orientation/consciousness: patient oriented x3 Limitations: no limitations Neck Neck: Yes normal visual inspection and Yes no JVD Lymphatic: no lymphadenopathy noted Chest Other: Left breast: No skin change, no nipple retraction, no nipple discharge, no palpable mass, no enlarged lymph nodes. Right breast: No skin change, no nipple retraction, no nipple discharge, no palpable mass, no enlarged lymph nodes Chest/axillae images: 2 1. Well-healed incision in the 12 o'clock position Resp Effort & Inspection: normal respiratory effort GI Inspection: Yes normal to inspection Skin Other: Warm, dry, no rash Neuro Other: Mobility Assessment: 5 1. 3 meter assessment time (seconds) 2. 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 Code(s): Z86.000 - Personal history of in-situ neoplasm of breast Category: Surgical Plan: Plan 69-year-old female with a prior history of lobular carcinoma in situ being followed for high risk for breast cancer. She feels well and denies any ongoing breast symptoms. Examination today reveals no suspicious findings in either breast. Her most recent mammogram and MRI have been normal. She is scheduled for follow-up mammogram on 05/21/2025 and will be due for a breast MRI in 11/09/2024. She should return in 6 months for follow-up examination, sooner p.r.n.. 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
[2024-07-06 10:20] VITALS: BP 192/85; PULSE 76; BMI 22.5
== END 2024-07-06 10:29 | disposition home or self-care (01) ==
PROVIDERS: PCP Nurse Practitioner Primary Care; Visit Provider Surgery
DX: Z91.89 Other specified personal risk factors, not elsewhere classified (principal); Z86.000 Personal history of in-situ neoplasm of breast
CPT/HCPCS: 99213; G2211

== ENCOUNTER → 2024-07-06 10:09 | Outpatient (BNVA) | payer MEDICARE, SELFPAY | PROVIDERS: PCP Nurse Practitioner Primary Care; Visit Provider Surgery | DX: Z86.000 Personal history of in-situ neoplasm of breast (principal); Z91.89 Other specified personal risk factors, not elsewhere classified | CPT/HCPCS: 99212 ==

== ENCOUNTER 2024-10-18 10:18 | Outpatient (REF) | payer MEDICARE, SELFPAY ==
--- NOTE | ~2024-10-18 | MM_ITS ---
EXAMINATION: DXA BONE DENSITY AXIAL HISTORY: Estrogen deficiency TECHNIQUE: [employer] Dual energy absorptiometry (DEXA) of the lumbar spine, total left hip, and femoral neck was performed. COMPARISON: Comparison is made with the prior examination dated 05/06/2021. FINDINGS: The bone mineral density of the lumbar spine is 1.070 with a T-score of -0.9, and a Z-score of 0.9. This represents a BMD change of -4.4% compared to the prior exam. This is statistically significant. The bone mineral density of the left total hip is 0.909 with a T-score of -0.8, and a Z-score of 0.7. This represents BMD change of -6.7% compared to the prior exam. This is statistically significant. The bone mineral density of the left femoral neck is 0.862 with a T-score of -1.3, and a Z-score of 0.5. This represents BMD change of -4.0% compared to the prior exam. FRACTURE RISK: The FRAX index suggests a ten year probability of major osteoporotic fracture of 8.9%, and of hip fracture 1.0%. MM/XR DEXA axial skeleton IMPRESSION: Based on bone mineral density, and according to World Health Organization (WHO) criteria, the diagnosis is consistent with osteopenia. All bone density values are in grams per centimeter squared (g/cm2). Statistically, 68% of repeat scans fall within 1 SD (+/- 0.010 g/cm2 for AP spine L1-L4) and 1 SD (+/- 0.012 g/cm2 for femur total) FRAX is a trademark of the [employer]'s [employer] Metabolic Bone Disease, a World Health Organization (WHO) Collaborating Center. Electronically signed by: Sav Morataya MD 10/18/2024 11:[address] [facility]
--- OUTSIDE RECORDS SUMMARY | 2024-10-18 12:34 | XMS_ITS | Patient Health Record ---
Author Organization [facility] Address [address] [place] [address] Care Team Providers Care Precision Structural Metal Fitter Name Role Phone Grabiel FAITH, Bonnie Primary Care Provider Sav Shabazz Unavailable [phone] ALLERGIES No Known Allergies RESULTS Component Value Reference Range Notes MAMMOGRAM DIGITAL BILATERAL SCREEN Reviewed date:06/13/2024 02:54:58 PM Interpretation:Normal Performing Lab: Notes/Report: Normal REASON FOR REFERRAL No Information MEDICATIONS Medication SIG (Take, Route, Frequency, Duration) Notes Start Date End Date Status Sertraline HCl 50 MG TAKE 1 TABLET BY MO UTH DAILY Oral for 90 Active Lisinopril 20 MG TAKE 1 TABLET BY REDD TH EVERY DAY Orally Once a day Active Vitamin D3 25 MCG (1000 UT) 1 tablet Ora lly Once a day for 30 day(s) Active Iron (Ferrous Sulfate) 325 (65 Fe) MG 1 tablet Orally Three times a Week Active Rosuvastatin Calcium 5 MG TAKE 1 TABLET BY MOUTH DAILY Oral for 90 Active Ursodiol 300 MG take 2 every morning and 1 every evening Orally Twice a day 06/06/2024 Active IMMUNIZATIONS Vaccine Route Administration Date Status Comme nts Pneumococcal Unknown 06/13/2024 Refused SOCIAL HISTORY Tobacco Use: Social History Observation Description Date Details (start date - stop date) Never Smoker NA - NA Sex Assigned At : Social History Observation Description Sex Assigned At Unknown Tobacco Use/Smoking Question Answer Notes Patient is a nonsmoker Alcohol Screen Question Answer Notes Did you have a drink contain ing alcohol in the past year? Yes How often did you have a dri nk containing alcohol in the past year? Never (0 point) How many drinks did you have on a typical day when you were drinking in the past year? 1 or 2 drinks (0 point) How often did you have 6 or more drinks on one occasion in the past year? 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) Active confirmed 72819030 Problem Elevated alkaline phosphatase level (R74.8) Active confirmed 594494153 Problem Elevated liver function tests (R94.5) Active confirmed Elevated liver enzymes level (654376340) Problem Abnormal alkaline phosphatase test (R74.8) Active confirmed 164260937 VITAL SIGNS Blood pressure diastolic 82 mm Hg 06/13/2024 Height 5 ft 3 in in 06/13/2024 Blood pressure systolic 104 mm Hg 06/13/2024 Weight 127 lbs 06/13/2024 BMI 22.49 kg/m2 06/13/2024 Encounters Encounter Location Date Provider Diagnosis [facility] [address] [place] [phone] 11/09/2023 Sav Mari Elevated liver function tests R79.89 and Elevated alkaline phosphatase level R74.8 [facility] [address] [place] [phone] 06/13/2024 Sav Mari Elevated liver function tests R79.89 and Elevated alkaline phosphatase level R74.8 [facility] [address] [place] [phone] 11/03/2023 Sav Mari [facility] [address] [place] [phone] 12/12/2023 Sav Mari Elevated liver function tests R79.89 [facility] [address] [place] [address] 01/27/2024 Sav Mari Elevated liver function tests R94.5 [facility] [address] [place] [phone] 04/03/2024 Sav Mari [facility] [address] [place] [phone] 06/06/2024 Sav Mari ASSESSMENTS Encounter Date Diagnosis Assessment Notes Treatment Notes Treatment Clinical Notes 11/09/2023 Elevated liver function tests (ICD-10 - R79.89) 11/09/2023 Elevated alkaline phosphatase level (ICD-10 - R74.8) 06/13/2024 Elevated liver function tests (ICD-10 - R79.89) Ask Dr. Dwyer if he wants you to stay on the Ursodiol credit resolution representative with your cholesterol medicine, Rosuvastatin. 06/13/2024 Elevated alkaline phosphatase level (ICD-10 - R74.8) 12/12/2023 Elevated liver function tests (ICD-10 - R79.89) 01/27/2024 Elevated liver function tests (ICD-10 - R94.5) 11/09/2023 Other Repeat colonosc opy in 04/202506/13/2024 Other We will schedul e your screening colonoscopy when I see you in followup in May of 2025 PLAN OF TREATMENT Pending Test Test Name Order Date CHEM 7 PROFILE 05/13/2023 LIVER PROFILE 01/27/2024 LIVER PROFILE 11/09/2023 LIVER PROFILE 06/13/2024 LIVER PROFILE 05/13/2023 LIVER PROFILE 06/20/2023 LIVER PROFILE 05/04/2023 LIVER PROFILE 09/30/2023 LIVER PROFILE 12/12/2023 IRON + IBC (FE) 05/04/2023 CRP 05/04/2023 CBC w DIFF 05/04/2023 CBC w DIFF 05/25/2023 SED RATE (ESR) 05/04/2023 LIVER KIDNEY MICROSOMAL AB (LKM AB) 04/24 MRI ABD W&WO CONTRAST 05/13/2023 US LIVER BIOPSY CORE GUIDE 05/25/2023 FLUOR. ANTINUCLEAR AB SCREEN (CARLINE) 04/23 Prothrombin Time INR 05/25/2023 Partial Thromboplastin Time 05/25/2023 Mitochondrial Antibody 05/13/2023 US biopsy liver 06/15/2023 Next Appt Details Provider Name:Sav Pleitez Kmaaljit , 06/07/2025 09:20:00 AM, [address] [place] [address], [facility] [address], [place], [address], Insurance Providers Payer Name Payer Address Payer Phone Subscriber Number Group Number Insured Name Patient Relationship to Insured Coverage Start Date Coverage End Date [facility] [address] [place] [address] [id number] MICKEY MARAVILLA Self - patient is the insured MEDICAL (GENERAL) HISTORY Medical History History ICD Code Hypertension Precancerous cells in right breast 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 Flores in [place]. She describes that the small bowel video capsule study did reveal multiple teleangiectasias in the small bowel which were not treated endoscopically. She has been on iron replacement therapy which has kept her hemoglobin stable. Panic attacks Hyperlipidemia--stopped statin beginning of 04/2023 Colonoscopy every 5 years--a lways neg for polyps--most recent was in 2019 Dr. So in [place] EGD was negative during a workup for her anemia and the HHT Denies MA,DM,CVA,Lung disease,renal dise ase Elevated alkaline phosphatas e of 500-600 in 2022. Laboratories were all negative for any autoimmune liver disease or any other etiologies of liver disease. A subsequent liver biopsy showed some bile duct injury and information but without any definitive evidence of primary biliary cholangitis.She was started on Ursodiol and Colchicine. She was seen by Dr. Dwyre at [facility] for second opinion in September of 2023. Her colchicine(09/2023) and then her ursodiol(10/2023) were subsequently stopped and her LFT's remained normal as of the 11/09/23 OV. She was started on Rosuvasta tin in the spring and the alkaline phosphatase whitney to about 3 times normal. She was started back on ursodiol by Dr. Dwyer at [facility] and her liver tests normalized despite remaining on the rosuvastatin. Surgical History Surgery Date(Month/Year) Biopsy of breast-- precancer ous cells--no treatment--sees Dr. Rosa 2010
--- OUTSIDE RECORDS SUMMARY | 2024-10-18 12:34 | XMS_ITS ---
Author Organization [facility] Address [address] [place] [address] Care Team Providers Care Transport Company Manager Name Role Phone Bonnie Spain NP Primary Care Provider Sav Shabazz [phone] REASON FOR VISIT diarrhea Encounters Encounter Location Date Provider Diagnosis [facility] [address] [place] [address] Drive [address] [place] [address] 04/03/2024 Sav Mari PLAN OF TREATMENT Next Appt Details Provider Name:Sav Mari , 06/07/2025 09:20:00 AM, [address], [address], [place], [address],
--- OUTSIDE RECORDS SUMMARY | 2024-10-18 12:34 | XMS_ITS | Clinical Summary ---
Author Organization [facility] Address [address] [place] [phone] Phone Care Team Providers Care Title Curative Specialist Name Role Phone Bonnie Spain NP Primary Care Provider [phone] Allergies No known active allergies Medications cholecalciferol (VITAMIN D-3) 25 mcg (1,000 unit) tablet Take 1 tablet (1,000 Units total) by mouth 1 (one) time each day. 4 Active ferrous sulfate 325 mg (65 mg elemental iron) tablet Take 1 tablet (325 mg total) by mouth every other day. 3 Active sertraline (ZOLOFT) 50 mg tablet Take 1 tablet (50 mg total) by mouth 1 (one) time each day. Active ursodioL (ACTIGALL) 300 mg capsule Take 3 capsules (900 mg total) by mouth 1 (one) time each day. 4 Active rosuvastatin (CRESTOR) 5 mg tablet TAKE 1 TABLET BY MOUTH DAILY 90 tablet 1 5 Active lisinopril-hydr oCHLOROthiazide (PRINZIDE,ZESTO RETIC) 20-12.5 mg per tablet Take 1 tablet by mouth 1 (one) time each day. 30 each 5 09/13/19 26 Active minocycline (DYNACIN) 100 mg tablet Take 1 tablet (100 mg total) by mouth 2 (two) times a day for 5 days. 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 Essential (primary) hypertension 09/28/2022 Iron deficiency anemia due to chronic blood loss 09/28/2022 Other hyperlipidemia 09/28/2022 Encounters Date Type Department Care Team Description 09/14/2024 11:15 AM EST Consult General Surgery - [facility] [address] [place] [address] Kush Bolaños MD Infected sebaceous cyst (Primary Dx); Cellulitis, face 09/13/2024 10:15 AM EST Office Visit Internal Medicine - [facility] [address] [place] [phone] Bonnie Spain NP Essential (primary) hypertension (Primary Dx); Other hyperlipidemia; Iron deficiency anemia due to chronic blood loss; Primary biliary cholangitis (CMS/HCC); Anxiety; Cellulitis, face; Infected sebaceous cyst; Menopause from Last 3 Months Immunizations Name Administration Dates Next Due Influenza Quadravalent, MDCK , 0.5ml, preservative free (Flucelvax) 6mo and older 05/13/2020 Influenza trivalent, 0.5mL (Fluad) 65yo and olde r 06/08/2021 Influenza, Unspecified 04/23/2023,06/23/2022 Pneumococcal conjugate 20 va lent (Prevnar 20, PCV 20) 2mo and older 03/29/2023 Tdap Tetanus diptheria acell ular pertussis (Boostrix; Adacel) 7yo and older 08/23/2017 Zoster recombinant (Shingrix) 19yo and older 08/2023,01/22/2024 Surgical History Surgery Date Site/Laterality Comments OTHER SURGICAL HISTORY 2010 Right PROCEDURE: BREAST TISSUE EXCISIONAL PATHOLOGY EXAM Medical History Medical History Date Comments Hyperlipidemia DX:Hyperlipidemi a Essential (primary) hypertension DX:Essential (primary) hypertension Hypertrophy of breast DX:Hypertr ophy of breast Fe deficiency anemia DX:Fe defic iency anemia Arriaga-Osler syndrome (CMS/HCC) D X:Arriaga-Osler syndrome (HCC) Family History Medical History Relation Name Comments Hyperlipidemia Brother Diabetes Father Heart attack Father Hyperlipidemia Father Hypertension Father Hyperlipidemia Mother Other cancer Mother Hyperlipidemia Sister Relation Name Status Comments Brother Father Mother Sister Social History Tobacco Use Types Packs/Day Years Used Date Smoking Tobacco: Never Smokeless Tobacco: Never Alcohol Use Standard Drinks/Week Comments Yes 1 (1 standard drink = 0.6 oz pur e alcohol) Housing Instability Answer Date Recorde d Are you worried that in the next 2 months you may not have stable housing? No 09/08/2024 Food Access & Nutrition Answer Date Rec orded Do you have access to a vari ety of food including fruits and vegetables? Yes 09/08/2024 Health Literacy Answer Date Recorded How often do you need to hav e someone help you when you read instructions, pamphlets, or other written material from your doctor or pharmacy? Never 09/08/2024 Caregiver: How often do you need to have someone help you when you read instructions, pamphlets, or other written material from your doctor or pharmacy? Not on file 09/08/2024 Financial Risk Answer Date Recorded How hard is it for you to pa y for the very basics like food, housing, medical care, and air conditioning / heating? Not very hard 09/08/2024 Transportation Answer Date Recorded Has the lack of transportati on kept you from meetings, work, or from getting things needed for daily living? No Has the lack of transportati on kept you from medical appointments or from getting medications? No 09/08/2024 Social Isolation Answer Date Recorded How often do you feel lonely or isolated from th ose around you? Never 09/08/2024 Food Risk Answer Date Recorded Within the past 12 months we worried whether our food would run out before we got money to buy more. Never true 09/08/2024 Within the past 12 months th e food we bought just didn't last and we didn't have money to get more. Never true 09/08/2024 Dependent Care Answer Date Recorded Do you need help finding or paying for care for your loved ones. For example, childhood development teacher or elderly care for an older adult? No 09/08/2024 Education Answer Date Recorded Do you think completing more education or training, like finishing a GED, going to college, or learning a trade, would be helpful for you? N/A 09/08/2024 Employment and Income Answer Date Recor ded During the last four weeks, have you been actively looking for work? No 09/08/2024 Living Situation Answer Date Recorded What is your living situation? 0 09/08/2024 Comments No Sex and Gender Information Value Date Recorded Sex Assigned at Not on file Legal Sex Female 5:05 PM EST Gender Identity Not on file Sexual Orientation Not on file Obstetrics History Last Filed Vital Signs Vital Sign Reading Time Taken Comments Blood Pressure 189/105 09/14/2024 11:02 AM EST Pulse 64 09/14/2024 11:02 AM EST Temperature 36.4 ??C (97.6 ??F) 09/14/2024 11:[address] Respiratory Rate - - Oxygen Saturation - - Inhaled Oxygen Concentration - - Weight 59.4 kg (131 lb) 09/14/2024 11:02 AM EST Height 157.5 cm (5' 2 ) 09/14/2024 11:02 AM EST Body Mass Index 23.96 09/14/2024 11:02 AM EST Plan of Treatment Upcoming Encounters Date Type Department Care Team (Late st Contact Info) Description 10/24/2024 2:30 PM EST Office Visit Internal Medicine - [facility] [address] [place] [address] Bonnie Spain NP [address] [place] [address] 11/16/2024 11:00 AM EDT Procedure visit General Surgery - [facility] [address] [address] Kush Bolaños MD [address] [address] Health Maintenance Due Date Last Done Comments Hepatitis A Vaccines (1 of 2 - Risk 2-dose series) 1975 Hepatitis B Vaccines (1 of 3 - Risk 3-dose series) 2016 RSV Immunization Patients 60+ Years Old (1 - Risk 60-74 years 1-dose series) 2016 Medicare Annual Wellness Visit 09/22/2023 Osteoporosis Screening (Bone Density Screening) 09/22/2023 COVID-19 Vaccine ( season) 2024 Influenza Vaccine (#1) 2024 , 06/23/2022, 06/08/2021, Additional history exists Colorectal Cancer Screening: Colonoscopy 06/26/2025 06/26/2020 Social Influencers of Health Screening 09/08/2025 09/08/2024 Falls Risk Assessment 09/13/2025 09/13/2024, 024 Depression Screening 10/17/2025 10/17/2024, 05/16/20 24 Hypertension/CHF/CAD Annual BMP Blood Test 10/17/2025 10/17/2024, 05/22/2024, 05/22/2024, Additional history exists Breast Cancer Screening 04/23/2026 04/23/2024 DTaP,Tdap,and Td Vaccines (2 - Td or Tdap) 08/23/2027 08/23/2017 Cholesterol Screening (Lipid Panel) 10/17/2029 10/17/2024, 05/22/2024, 05/22/2024, Additional history exists Hepatitis C Screening Completed 09/28/2022 Pneumococcal Vaccine: 50+ Years Completed 03/29/2023 Zoster Vaccines Completed 03/23/2024, 01/22/2024 HIB Vaccines Aged Out No longer eligi ble based on patient's age to complete this topic HPV Vaccines Aged Out No longer eligi ble based on patient's age to complete this topic IPV Vaccines Aged Out No longer eligi ble based on patient's age to complete this topic MMR Vaccines Aged Out No longer eligi ble based on patient's age to complete this topic Meningococcal ACWY Vaccine Aged Out N o longer eligible based on patient's age to complete this topic Meningococcal B Vacine Aged Out No lo nger eligible based on patient's age to complete this topic RSV Immunization Patients Under 20 months Aged Out No longer eligible based on patient's age to complete this topic Varicella Vaccines Aged Out No longer eligible based on patient's age to complete this topic Procedures Procedure Name Priority Date/Time Associated Diagnosis Comments BASIC METABOLIC PANEL Routine 10/17/2024 11:19 AM EST Essential (primary) hypertension ALANINE AMINOTRANSFERASE Routine 10/17/2024 11:19 AM EST Other hyperlipidemia ASPARTATE AMINOTRANSFERASE Routine 10/17/2024 11:19 AM EST Other hyperlipidemia LIPID PANEL WITH REFLEX TO DIRECT LDL Routine 10/17/2024 11:19 AM EST Other hyperlipidemia IRON AND TIBC Routine 10/17/2024 11:19 AM EST Iron deficiency anemia due to chronic blood loss EXTERNAL CLINICAL LAB 10/13/2024 DEPRESSION SCREENING Routine 05/16/2024 FALLS RISK ASSESSMENT Routine 05/16/2024 HEPATITIS C SCREENING Routine 09/28/2022 COLONOSCOPY Routine 06/26/2020 from Last 3 Months or Most Recently Relevant to Health Maintenance Results * (ABNORMAL) Lipid panel with reflex to direct LDL (10/17/2024 11:19 AM EST) Cholesterol 200 0 - 200 mg/dL LAB CHEMISTRY METHOD 10/17/2024 2:59 PM [facility] Triglycerides 78 0 - 150 mg/dL LAB CHEMISTRY METHOD 10/17/2024 2:59 PM [facility] HDL 76 >=40 mg/dL LAB CHEMISTRY METHOD 10/17/2024 2:59 PM [facility] LDL Calculated 108(H) 0 - 100 mg/dL LAB CHEMISTRY METHOD 10/17/2024 2:59 PM [facility] VLDL Cholesterol Robert 15.6 mg/dL LAB CHEMISTRY METHOD 10/17/2024 2:59 PM [facility] Non HDL Chol. (LDL+VLDL) 124 <145 mg/dL LAB CHEMISTRY METHOD 10/17/2024 2:59 PM [facility] Chol/HDL Ratio 2.6 0.0 - 4.4 LAB CHEMISTRY METHOD 10/17/2024 2:[address] [facility] Blood Venous blood specimen / Unknown Venipuncture / Unknown 10/17/2024 11:19 AM EST 10/17/2024 11:19 AM EST us Bonnie Spain NP LAB BLOOD ORDERABLES Final Resu lt [facility] [address] [place] [address], [place] [phone] * Iron and TIBC (10/17/2024 11:19 AM EST) Iron 98 40 - 150 mcg/dL LAB CHEMISTRY METHOD 10/17/2024 2:[address] [facility] TIBC 342 250 - 450 mcg/dL LAB CHEMISTRY METHOD 10/17/2024 2:59 PM [facility] Iron Saturation 29 15 - 50 % LAB CHEMISTRY METHOD 10/17/2024 2:[address] [facility] Blood Venous blood specimen / Unknown Venipuncture / Unknown 10/17/2024 11:19 AM EST 10/17/2024 11:19 AM EST us Bonnie Spain NP LAB BLOOD ORDERABLES Final Resu lt [facility] [address] [place] [address], [place] [phone] * Alanine aminotransferase (10/17/2024 11:19 AM EST) ALT (SGPT) 20 10 - 60 unit/L LAB CHEMISTRY METHOD 10/17/2024 2:[address] [facility] Blood Venous blood specimen / Unknown Venipuncture / Unknown 10/17/2024 11:19 AM EST 10/17/2024 11:19 AM EST us Bonnie Spain CONNECTION WORKER LAB BLOOD ORDERABLES Final Resu lt Performing Organization Address [facility]/ZIP Co de Phone Number [facility] [address] [place] [address], * Aspartate aminotransferase (10/17/2024 11:19 AM EST) Pathologist [facility] AST (SGOT) 17 10 - 42 unit/L LAB CHEMISTRY METHOD 10/17/2024 2:59 PM [facility] Blood Venous blood specimen / Unknown Venipuncture / Unknown 10/17/2024 11:19 AM EST 10/17/2024 11:19 AM EST Bonnie Spain CONNECTION WORKER LAB BLOOD ORDERABLES Final Resu lt Performing Organization Address [facility]/ZIP Co de Phone Number [facility] [address] [place] [address], [place] [phone] * (ABNORMAL) Basic metabolic panel (10/17/2024 11:19 AM EST) [facility] Sodium 142 133 - 145 mmol/L LAB CHEMISTRY METHOD 10/17/2024 3:00 PM [facility] Potassium 4.1 3.5 - 5.5 mmol/L LAB CHEMISTRY METHOD 10/17/2024 3:00 PM [facility] Chloride 106 96 - 110 mmol/L LAB CHEMISTRY METHOD 10/17/2024 3:00 PM [facility] CO2 34(H) 21 - 32 mmol/L LAB CHEMISTRY METHOD 10/17/2024 3:00 PM [facility] Anion Gap 2(L) 3 - 11 LAB CHEMISTRY METHOD 10/17/2024 3:00 PM [facility] Glucose 90 70 - 100 mg/dL LAB CHEMISTRY METHOD 10/17/2024 3:00 PM [facility] BUN 14 5 - 25 mg/dL LAB CHEMISTRY METHOD 10/17/2024 3:00 PM [facility] Creatinine 0.70 0.50 - 1.10 mg/dL LAB CHEMISTRY METHOD 10/17/2024 3:[address] [facility] eGFR 94 >=60 mL/min/1. 73m2 LAB CHEMISTRY METHOD 10/17/2024 3:[address] [facility] Comment:Calculation based on the??Chronic Kidney Disease Epidemiology Collaboration (CKD-EPI) equation refit??without adjustment for race. BUN/Creatinine Ratio 20.0 LAB CHEMISTRY METHOD 10/17/2024 3:00 PM [facility] Calcium 10.5 8.5 - 10.5 mg/dL LAB CHEMISTRY METHOD 10/17/2024 3:00 PM [facility] Blood Venous blood specimen / Unknown Venipuncture / Unknown 10/17/2024 11:19 AM EST 10/17/2024 11:19 AM EST Bonnie Spain LAB BLOOD ORDERABLES Final Resu lt [facility] [address] [place] [address], * External clinical lab (10/13/2024) Provider Belinda Onbase LAB BLOOD ORDERABLES Fin al Result * Falls Risk Assessment (05/16/2024) [facility] Falls Risk Assessment ABSTRACTED Historical Provider HEALTH MAINTENANCE Final Result * Depression Screening (05/16/2024) Pathologist [facility] Depression Screening ABSTRACTED Historical Provider HEALTH MAINTENANCE Final Result * Hepatitis C Screening (09/28/2022) [facility] Hepatitis C Screening ABSTRACTED Historical Provider HEALTH MAINTENANCE Final Result * Colonoscopy (06/26/2020) [facility] Colonoscopy NO INTERPRETATION , ABSTRACTED Anatomical Region Laterality Modality Other us Historical Provider HEALTH MAINTENANCE Final Result from Last 3 Months or Most Recently Relevant to Health Maintenance Insurance [employer] - [place] MEDICARE ADVANTAGE Care Teams Title Curative Specialist Relationship Specialty Start Date End Date Bonnie Spain NP [address] [place] [address] [place] [address] PCP - General 08/18/22
--- OUTSIDE RECORDS SUMMARY | 2024-10-18 12:35 | XMS_ITS ---
Author Organization [facility] Address [address] [place] [address] Care Team Providers Care Marketing Intelligence Analyst Name Role Phone Grabiel FAITH, Bonnie Primary Care Provider Sav Shabazz Unavailable [phone] REASON FOR VISIT Need dose of the Ursodiol to be able to send a refill for her MEDICATIONS Medication SIG (Take, Route, Fr equency, Duration) Notes Start Date End Date Status Ursodiol 300 MG 1 capsule Orally Thr ee times a day for 90 days 06/06/2024 Active Encounters Encounter Location Date Provider Diagnosis [facility] [address] [place] [address] [address] [place] [address] 06/06/2024 Sav Mari PLAN OF TREATMENT Medication Medication Name Sig Start Date Stop Date Notes Ursodiol 300 MG 1 capsule Orally Thr ee times a day for 90 days 06/06/2024 Next Appt Details Provider Name:Sav Mari , 06/07/2025 09:20:00 AM, [address] [place] [address], [address], [place], [address],
--- OUTSIDE RECORDS SUMMARY | 2024-10-18 12:35 | XMS_ITS ---
Author Organization [facility] Address [address] [place] [address] Care Team Providers Care Aquatics Manager Name Role Phone Grabiel FAITH, Bonnie Primary Care Provider Sav Shabazz Unavailable [phone] ALLERGIES No Known Allergies REASON FOR VISIT Patient presents today for elevated lft MEDICATIONS Medication SIG (Take, Route, Frequency, Duration) [...] Never (0 point) Points 0 Interpretation Negative VITAL SIGNS Blood pressure systolic 104 mm Hg 06/13/20 24 Blood pressure diastolic 82 mm Hg 024 Height 5 ft 3 in in 06/13/2024 Weight 127 lbs 06/13/2024 BMI 22.49 kg/m2 06/13/2024 Encounters Encounter Location Date Provider Diagnosis [facility] [address] [place] [address] 06/13/2024 Sav Mari Elevated liver function tests R79.89 and Elevated alkaline phosphatase level R74.8 ASSESSMENTS Encounter Date Diagnosis Assessment Notes Treatment Notes Treatment Clinical Notes 06/13/2024 Elevated liver function tests (ICD-10 - R79.89) Ask Dr. Dwyer if he wants you to stay on the Ursodiol [facility] with your cholesterol medicine, Rosuvastatin. 06/13/2024 Elevated alkaline phosphatase level (ICD-10 - R74.8) 06/13/2024 Other We will schedul e your screening colonoscopy when I see you in followup in May of 2025 PLAN OF TREATMENT Medication Medication Name Sig Start Date Stop Date Notes Ursodiol 300 MG take 2 every morning and 1 every evening Orally Twice a day 06/06/2024 Treatment Notes Assessment Notes Elevated liver function tests Ask Dr. 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 Other We will schedule you r screening colonoscopy when I see you in followup in May of 2025 Pending Test Test Name Order Date LIVER PROFILE 06/13/2024 Next Appt Details Follow Up: 1 Year, Reason: Provider Name:Sav Mari , 06/07/2025 09:20:00 AM, [address], [address], [place], [address], Progress Notes * Examination Category Sub-Category Detail Notes General Examination GENERAL APPEARANCE: pleasant , well nourished, well developed, in no acute distress HEAD: EYES: sclera non-icteric EARS: NOSE: THROAT: NECK/THYROID: no cervical lymphade nopathy, neck supple HEART: S1, S2 normal CHEST: LUNGS: clear to auscultatio n bilaterally ABDOMEN: normal bowel sounds, no guarding or rigidity, no guarding or rigidity, no masses palpable, soft, nontender, nondistended NEUROLOGIC: alert and oriented SKIN: nonjaundiced, no spi gunner angiomata EXTREMITIES: no edema PERIPHERAL PULSES: BACK: BREASTS: MUSCULOSKELETAL: MALE GENITOURINARY: LYMPH NODES: RECTAL EXAM: FEMALE GENITOURINARY: ORAL CAVITY: mucosa moist
== END 2024-10-18 10:19 | disposition home or self-care (01) ==
LOC: HO.MAMMO 10:18
PROVIDERS: PCP Nurse Practitioner Primary Care; Visit Provider Nurse Practitioner Primary Care
DX: Z13.820 Encounter for screening for osteoporosis (principal); Z78.0 Asymptomatic menopausal state
CPT/HCPCS: 77080

== ENCOUNTER → 2024-10-18 10:30 | Outpatient (BNV) | payer MEDICARE, SELFPAY | PROVIDERS: PCP Nurse Practitioner Primary Care; Visit Provider Radiology Diagnostic Radiology | DX: E28.39 Other primary ovarian failure (principal) | CPT/HCPCS: 77080 ==

== ENCOUNTER 2024-10-30 09:17 | Outpatient (REF) | payer MEDICARE, SELFPAY ==
--- OUTSIDE RECORDS SUMMARY | 2024-10-30 09:56 | XMS_ITS ---
Author Organization [facility] Address [address] [place] [address] Care Team Providers Care Nuclear Physics Professor Name Role Phone Grabiel FAITH, Bonnie Primary Care Provider Sav Shabazz Unavailable [phone] Allergies No Known Allergies REASON FOR VISIT Patient presents today for elevated lft Medications Medication SIG (Take, Route, Frequency, Duration) Notes [...] evening Orally Twice a day 06/06/2024 Active Immunizations Vaccine Route Administration Date Status Comme nts Pneumococcal Unknown 06/13/2024 Refused Social History Tobacco Use: Social History Observation Description Date Details (start date - stop date) Never Smoker NA - NA Tobacco Use/Smoking Question Answer Notes Patient is [...] Never (0 point) Points 0 Interpretation Negative Section Notes: Nonsmoker;very occasional on e drink Vital Signs Blood pressure systolic 104 mm Hg 06/13/20 24 Blood pressure diastolic 82 mm Hg 024 Height 5 ft 3 in in 06/13/2024 Weight 127 lbs 06/13/2024 BMI 22.49 kg/m2 06/13/2024 Encounters Encounter Location Date Provider Diagnosis [facility] [address] [place] [address] 06/13/2024 Sav Mari Elevated liver function tests R79.89 and Elevated alkaline phosphatase level R74.8 Assessments Encounter Date Diagnosis (ICD Code) Assessment Notes Treatment Notes Treatment Clinical Notes Section Notes 06/13/2024 Elevated liver function tests (ICD-10 - R79.89) Ask Dr. Dwyer if he wants you to stay on the Ursod[facility] with your cholesterol medicine, Rosuvastatin. Overall, Mickey appears well and is not having any particular GI complaints nor any signs or symptoms of liver disease. At this point she is tolerating the rosuvastatin in regard to her LFTs as long as she remains on her ursodiol. I advised her that I don't think she has any primary liver disease and the elevations of her liver enzymes seem to be actually related to the use of a statin both in the past and currently. At this point I did advise her to continue the ursodiol at the current regimen but to actually speak with Dr. Dwyer at [facility] to make sure that it is okay with him from a long-term standpoint. The other option would be to stop her statin cholesterol medication and use an alternative class of medication for the cholesterol. She advised me that she is going to be having monthly lab work for liver tests at [facility] and I advised her to try to get me a copy of those as she has them done. We also reviewed that when I see her in one year for a followup visit we will plan to schedule her followup screening colonoscopy. I advised her to contact me prior to that if she has any problems or questions I can be of assistance with. Mickey was comfortable with this plan. Thank you again for allowing me to participate in Mickey's care. I shall continue to keep you advised of her progress. 06/13/2024 Elevated alkaline phosphatase level (ICD-10 - R74.8) Overall, Mickey appears well and is not having any particular GI complaints nor any signs or symptoms of liver disease. At this point she is tolerating the rosuvastatin in regard to her LFTs as long as she remains on her ursodiol. I advised her that I don't think she has any primary liver disease and the elevations of her liver enzymes seem to be actually related to the use of a statin both in the past and currently. At this point I did advise her to continue the ursodiol at the current regimen but to actually speak with Dr. Dwyer at [facility] to make sure that it is okay with him from a long-term standpoint. The other option would be to stop her statin cholesterol medication and use an alternative class of medication for the cholesterol. She advised me that she is going to be having monthly lab work for liver tests at [facility] and I advised her to try to get me a copy of those as she has them done. We also reviewed that when I see her in one year for a followup visit we will plan to schedule her followup screening colonoscopy. I advised her to contact me prior to that if she has any problems or questions I can be of assistance with. Mickey was comfortable with this plan. Thank you again for allowing me to participate in Mickey's care. I shall continue to keep you advised of her progress. 06/13/2024 Other We will schedule your screening colonoscopy when I see you in followup in May of 2025 Overall, Mickey appears well and is not having any particular GI complaints nor any signs or symptoms of liver disease. At this point she is tolerating the rosuvastatin in regard to her LFTs as long as she remains on her ursodiol. I advised her that I don't think she has any primary liver disease and the elevations of her liver enzymes seem to be actually related to the use of a statin both in the past and currently. At this point I did advise her to continue the ursodiol at the current regimen but to actually speak with Dr. Dwyer at [facility] to make sure that it is okay with him from a long-term standpoint. The other option would be to stop her statin cholesterol medication and use an alternative class of medication for the cholesterol. She advised me that she is going to be having monthly lab work for liver tests at [facility] and I advised her to try to get me a copy of those as she has them done. We also reviewed that when I see her in one year for a followup visit we will plan to schedule her followup screening colonoscopy. I advised her to contact me prior to that if she has any problems or questions I can be of assistance with. Mickey was comfortable with this plan. Thank you again for allowing me to participate in Mickey's care. I shall continue to keep you advised of her progress. Plan Of Treatment Medication Medication Name Sig Start Date Stop Date Notes Ursodiol 300 MG take 2 every morning and 1 every evening Orally Twice a day 06/06/2024 Treatment Notes Assessment Notes Elevated liver function tests Ask Dr. Angelo adams if he wants you to stay on the Ursodiol [facility] with your cholesterol medicine, Rosuvastatin. Other We will schedule you r screening colonoscopy when I see you in followup in May of 2025 Pending Test Test Name Order Date LIVER PROFILE 06/13/2024 Next Appt Details Follow Up: 1 Year, Reason: Provider Name:Sav Mari , 06/07/2025 09:20:00 AM, [address] [place] [address], [address], [place], [address], Progress Notes * TERRY ANDREWS VASHTIADOB: (69 yo F)Acc No.[id number]:06/13/2024 Progress Notes Patient:?Elaine MARAVILLA Provider:?Sav Mari MD :1955???Age:69 Y???Sex:Female D ate:06/13/2024 Address:[address] [place] [address] [phone] Pcp:Bonnie Spain NP Subjective: * Chief Complaints: * ???Patient presents today fo r elevated lft * HPI: ???incontinence:? I saw Mickey in followup today in regard to her elevated LFTs and discussion of colorectal cancer screening. ?Since I last saw Mickey in October she reports that she has been feeling well. When I saw her in October she was off of her previous cholesterol medication and ursodiol, and her LFTs were remaining normal through the Spring. However, due to a rising cholesterol level she was started on rosuvastatin and subsequently had a significant rise in her alkaline phosphatase to about 3 times normal. At that point she resumed the ursodiol at 900 mg daily as per the recommendation of Dr. Dwyer at [facility]. She has continued the rosuvastatin and her most recent LFTs from just last month were completely normal including an alkaline phosphatase of 120. She describes that she is tolerating the ursodiol without any adverse effects. She denies any pruritus, fatigue, any signs of jaundice, increasing abdominal girth, nor edema. She enjoys a good appetite, without any significant heartburn or dysphagia. She denies any change in bowel habits, hematochezia, nor melena. * ROS:?General/Constitutional:?Change in appetite?denies.?Chills?denies.?Fatigue?denies.?Ophthalmologic:?Comments?all negative.?ENT:?Comments?all negative.?Respiratory:?hemoptysis?denies.?Cough?denies.?Cardiovascular:?Chest pain?denies.?Orthopnea?denies.?Gastrointestinal:?Comments?See HPI for details.?Genitourinary:?Hematuria?denies.?Dysuria?denies.?Musculoskeletal:?Painful joints?denies.?Weakness?denies.?Skin:?Itching?denies.?Rash?denies.?Neurologic:?Headache?denies.?Seizures?denies.?Psychiatric:?Comments?all negative.? * Medical History:? * Surgical History:?Biopsy of breast-- precancerous cells--no treatment--sees Dr. Rosa 2010 * Hospitalization/Major Diagno stic Procedure:?No Hospitalization History. * Family History:?Father: dece ased, diagnosed with Colon polyps, Diabetes, HTN (hypertension).?Mother: alive, diagnosed with Colon polyps, HTN (hypertension).? No known family history of colon cancer nor liver disease. * Social History:?Tobacco Use:?Tobacco Use/Smoking?Patient is a?nonsmoker.?Drugs/Alcohol:?Alcohol Screen?Did you have a drink containing alcohol in the past year??Yes,?How often did you have a drink containing alcohol in the past year??Never (0 point),?How many drinks did you have on a typical day when you were drinking in the past year??1 or 2 drinks (0 point),?How often did you have 6 or more drinks on one occasion in the past year??Never (0 point),?Points?0,?Interpretation?Negative.?Miscellaneous:?Marital status: . Occupation: retired. ???Nonsmoker;very occasional one drink. * Medications:?TakingVitamin D 3 25 MCG (1000 UT) Tablet 1 tablet Orally Once a dayIron (Ferrous Sulfate) 325 (65 Fe) MG Tablet 1 tablet Orally Three times a WeekSertraline HCl 50 MG Tablet TAKE 1 TABLET BY MOUTH DAILY Oral Lisinopril 20 MG Tablet TAKE 1 TABLET BY MOUTH EVERY DAY Orally Once a dayUrsodiol 300 MG Capsule 1 capsule Orally Three times a dayRosuvastatin Calcium 5 MG Tablet TAKE 1 TABLET BY MOUTH DAILY Oral Medication List reviewed and reconciled with the patientTaking Vitamin D3 25 MCG (1000 UT) Tablet 1 tablet Orally Once a dayTaking Iron (Ferrous Sulfate) 325 (65 Fe) MG Tablet 1 tablet Orally Three times a WeekTaking Sertraline HCl 50 MG Tablet TAKE 1 TABLET BY MOUTH DAILY Oral Taking Lisinopril 20 MG Tablet TAKE 1 TABLET BY MOUTH EVERY DAY Orally Once a dayTaking Ursodiol 300 MG Capsule 1 capsule Orally Three times a dayTaking Rosuvastatin Calcium 5 MG Tablet TAKE 1 TABLET BY MOUTH DAILY Oral Medication List reviewed and reconciled with the patient * Allergies:?N.K.D.A.yes[Aller gies Verified] Objective: * Vitals:?Wt: 127 lbs, Ht: 5 f t 3 in, BMI:22.49 Index, BP: 104/82 mm Hg. * Examination: ???General Examination: ?GENERAL APPEARANCE:?pleasant, well nourished, well developed, in no acute distress.?EYES:?sclera non-icteric.?ORAL CAVITY:?mucosa moist.?NECK/THYROID:?no cervical lymphadenopathy, neck supple.?SKIN:?nonjaundiced, no spider angiomata.?HEART:?S1, S2 normal.?LUNGS:?clear to auscultation bilaterally.?ABDOMEN:?normal bowel sounds, no guarding or rigidity, no guarding or rigidity, no masses palpable, soft, nontender, nondistended.?EXTREMITIES:?no edema.?NEUROLOGIC:?alert and oriented.? Assessment: * Assessment: 1.?Elevated liver function t ests - R79.89 (Primary)?2.?Elevated alkaline phosphatase level - R74.8? Overall, Mickey appears well a nd is not having any particular GI complaints nor any signs or symptoms of liver disease. At this point she is tolerating the rosuvastatin in regard to her LFTs as long as she remains on her ursodiol. I advised her that I don't think she has any primary liver disease and the elevations of her liver enzymes seem to be actually related to the use of a statin both in the past and currently. At this point I did advise her to continue the ursodiol at the current regimen but to actually speak with Dr. Dwyer at [facility] to make sure that it is okay with him from a long-term standpoint. The other option would be to stop her statin cholesterol medication and use an alternative class of medication for the cholesterol. She advised me that she is going to be having monthly lab work for liver tests at [facility] and I advised her to try to get me a copy of those as she has them done. We also reviewed that when I see her in one year for a followup visit we will plan to schedule her followup screening colonoscopy. I advised her to contact me prior to that if she has any problems or questions I can be of assistance with. Mickey was comfortable with this plan. Thank you again for allowing me to participate in Mickey's care. I shall continue to keep you advised of her progress. Plan: * Treatment: Notes: Ask Dr. 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 Continue Ursodiol Capsule, 300 MG, take 2 every morning and 1 every evening, Orally, Twice a day. ? Notes: We will schedule your screening colonoscopy when I see you in followup in May of 2025 ? * Immunizations:? Pneumococcal (Not administered - Refused: Patient decision) * Procedure Codes:?3017F COLOR ECTAL CA SCREEN DOC [id number] TOBACCO [id number] BP SCR NOT PRFRM REC REASON NOS * Preventive Medicine:? ??Urinary Incontinence:?Urinary Incontinence?Assessment:?Absent,?Plan of care documented:?No, reason not specified.? ??Screenings:?Fall Risk Screening?Fall Risk Assessment:?No falls in the past year,?Screening:?No falls in the past year,?Assessment:?Not performed, no reason specified,?Plan of Care:?Not documented, no reason specified.? * Follow Up:?1 Year * * Sign off status: Completed true * Provider:?Sav Mari MD Date:? 024 Generated for Power burgos/Faby/Sandiitting on:?10/30/2024 09:56 AM EDT History and Physical Notes * HPI (History of Present Illness) Category Sub-Category Detail Notes Category Not es incontinence I saw Mickey in followup today in regard to her elevated LFTs and discussion of colorectal cancer screening. Since I last saw Mickey in October she reports that she has been feeling well. When I saw her in October she was off of her previous cholesterol medication and ursodiol, and her LFTs were remaining normal through the Spring. However, due to a rising cholesterol level she was started on rosuvastatin and subsequently had a significant rise in her alkaline phosphatase to about 3 times normal. At that point she resumed the ursodiol at 900 mg daily as per the recommendation of Dr. Dwyer at [facility]. She has continued the rosuvastatin and her most recent LFTs from just last month were completely normal including an alkaline phosphatase of 120. She describes that she is tolerating the ursodiol without any adverse effects. She denies any pruritus, fatigue, any signs of jaundice, increasing abdominal girth, nor edema. She enjoys a good appetite, without any significant heartburn or dysphagia. She denies any change in bowel habits, hematochezia, nor melena. Examination Category Sub-Category Detail Notes Category Not es General Examination GENERAL APPEARANCE: pleasant , well [...]
--- OUTSIDE RECORDS SUMMARY | 2024-10-30 09:56 | XMS_ITS ---
Author Organization [facility] Address [address] [place] [address] Care Team Providers Care Distribution District Supervisor Name Role Phone Bonnie Spain NP Primary Care Provider Sav Shabazz [phone] REASON FOR VISIT diarrhea Encounters Encounter Location Date Provider Diagnosis [facility] [address] [place] [address] 04/03/2024 Sav Mari Plan Of Treatment Next Appt Details Provider Name:Sav Mari , 06/07/2025 09:20:00 AM, [address], [address], [place], [address], Progress Notes * JAJA MARAVILLAB: (69 yo F)Acc No.[id number]:04/03/2024 Patient:?Elaine MARAVILLA :1955???Age:69 Y???Sex:Female Address:[address] [place], [address] * true * Date:? Generated for Power burgos/Faby/eTransmitting on:?10/30/2024 09:56 AM EDT
--- OUTSIDE RECORDS SUMMARY | 2024-10-30 09:56 | XMS_ITS | Patient Health Record ---
Author Organization [facility] Address [address] [place] [address] Care Team Providers Care Gaming Host Name Role Phone Grabiel FAITH, Bonnie Primary Care Provider Sav Shabazz Unavailable [phone] Allergies No Known Allergies Results Component Value Reference Range Notes MAMMOGRAM DIGITAL BILATERAL SCREEN Reviewed date:06/13/2024 02:54:58 PM Interpretation:Normal Performing Lab: Notes/Report: Normal Reason For Referral No Information Medications Medication SIG (Take, Route, Frequency, Duration) [...] Section Notes: Nonsmoker;very occasional on e drink Nonsmoker;very occasional on e drink Nonsmoker;very occasional on e drink Problems Problem Type SNOMED Code ICD Code Onset Dates Problem Status W/U Status Risk Notes Problem 840233124 Elevated liver function tests (R79.89) Active confirmed Problem 96028491 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) Active confirmed Problem 450049909 Elevated alkaline phosphatase level (R74.8) Active confirmed Problem Elevated liver enzymes level (069892270) Elevated liver function tests (R94.5) Active confirmed Problem 264863991 Abnormal alkaline phosphatase test (R74.8) Active confirmed Vital Signs Blood pressure diastolic 82 mm Hg 06/13/2024 Height 5 ft 3 in in 06/13/2024 Blood pressure systolic 104 mm Hg 06/13/2024 Weight 127 lbs 06/13/2024 BMI 22.49 kg/m2 06/13/2024 Encounters Encounter Location Date Provider Diagnosis [facility] [address] [place] [phone] 11/09/2023 Sav Mari Elevated liver function tests R79.89 and Elevated alkaline phosphatase level R74.8 [facility] [address] [place] [phone] 06/13/2024 Sav Mari Elevated liver function tests R79.89 and Elevated alkaline phosphatase level R74.8 [facility] [address] [place] [phone] 11/03/2023 Sav Mari [facility] [address] [place] [phone] 12/12/2023 Sav Mari Elevated liver function tests R79.89 [facility] [address] [place] [phone] 01/27/2024 Sav Mari Elevated liver function tests R94.5 [facility] [address] [place] [phone] 04/03/2024 Sav Mari [facility] [address] [place] [phone] 06/06/2024 Sav Mari Assessments Encounter Date Diagnosis (ICD Code) Assessment Notes Treatment Notes Treatment Clinical Notes Section Notes 11/09/2023 Elevated liver function tests (ICD-10 - R79.89) Overall, Ale appears quite well. Her LFTs thus far have remained normal off of her colchicine and off of her simvastatin. At this point things are pointing more toward a drug-induced liver injury as opposed to any underlying chronic autoimmune liver disease such as primary biliary cholangitis. She has now been off of the ursodiol for about a week and we shall see what her LFT do off of them when we recheck them in mid-November. If the LFTs remain normal then that would certainly go against primary biliary cholangitis and we would then continue to observe her with periodic LFTs. If the LFTs have started to rise significantly then we could always have her resume the ursodiol. At this point I am hopeful that things will remain normal and she does not have any underlying chronic liver disease. She will followup with you in regard to her hyperlipidemia and finding a new regimen for that. I have given her an appointment to see me in the Fall for follow up. I have advised her to call sooner if she has any problems or questions I can be of assistance with. We also reviewed that she would be due for a followup colonoscopy toward the latter part of 2024. Ale was comfortable with this plan. Thank you again for allowing me to participate in Ale's care. I shall continue to keep you advised of her progress. 11/09/2023 Elevated alkaline phosphatase level (ICD-10 - R74.8) Overall, Ale appears quite well. Her LFTs thus far have remained normal off of her colchicine and off of her simvastatin. At this point things are pointing more toward a drug-induced liver injury as opposed to any underlying chronic autoimmune liver disease such as primary biliary cholangitis. She has now been off of the ursodiol for about a week and we shall see what her LFT do off of them when we recheck them in mid. If the LFTs remain normal then that would certainly go against primary biliary cholangitis and we would then continue to observe her with periodic LFTs. If the LFTs have started to rise significantly then we could always have her resume the ursodiol. At this point I am hopeful that things will remain normal and she does not have any underlying chronic liver disease. She will followup with you in regard to her hyperlipidemia and finding a new regimen for that. I have given her an appointment to see me in the Fall for follow up. I have advised her to call sooner if she has any problems or questions I can be of assistance with. We also reviewed that she would be due for a followup colonoscopy toward the latter part of 2024. Ale was comfortable with this plan. Thank you again for allowing me to participate in Ale's care. I shall continue to keep you advised of her progress. 06/13/2024 Elevated liver function tests (ICD-10 - R79.89) Ask Dr. Dwyer if he wants you to stay on the Ursodiol manager intermediate with your cholesterol medicine, Rosuvastatin. Overall, Ale appears well and is not having any [...] to actually speak with Dr. Dwyer at [facility] to make sure that it is okay with him from a long-term standpoint. The other option would be to stop her statin cholesterol medication and use an alternative class of medication for the cholesterol. She advised me that she is going to be having monthly lab work for liver tests at [facility] and I advised her to try to [...] questions I can be of assistance with. Ale was comfortable with this plan. Thank you again for allowing me to participate in Ale's care. I shall continue to keep you advised of her progress. 06/13/2024 Elevated alkaline phosphatase level (ICD-10 - R74.8) Overall, Ale appears well and is not having any [...] to actually speak with Dr. Dwyer at [facility] to make sure that it is okay with him from a long-term standpoint. The other option would be to stop her statin cholesterol medication and use an alternative class of medication for the cholesterol. She advised me that she is going to be having monthly lab work for liver tests at [facility] and I advised her to try to [...] questions I can be of assistance with. Ale was comfortable with this plan. Thank you again for allowing me to participate in Ale's care. I shall continue to keep you advised of her progress. 12/12/2023 Elevated liver function tests (ICD-10 - R79.89) 01/27/2024 Elevated liver function tests (ICD-10 - R94.5) 11/09/2023 Other Repeat colonoscopy in 04/2025 Overall, Ale appears quite well. Her LFTs thus far have remained normal off of her colchicine and off of her simvastatin. At this point things are pointing more toward a drug-induced liver injury as opposed to any underlying chronic autoimmune liver disease such as primary biliary cholangitis. She has now been off of the ursodiol for about a week and we shall see what her LFT do off of them when we recheck them in mid-November. If the LFTs remain normal then that would certainly go against primary biliary cholangitis and we would then continue to observe her with periodic LFTs. If the LFTs have started to rise significantly then we could always have her resume the ursodiol. At this point I am hopeful that things will remain normal and she does not have any underlying chronic liver disease. She will followup with you in regard to her hyperlipidemia and finding a new regimen for that. I have given her an appointment to see me in the Fall for follow up. I have advised her to call sooner if she has any problems or questions I can be of assistance with. We also reviewed that she would be due for a followup colonoscopy toward the latter part of 2024. Ale was comfortable with this plan. Thank you again for allowing me to participate in Ale's care. I shall continue to keep you advised of her progress. 06/13/2024 Other We will schedule your screening colonoscopy when I see you in followup in May of 2025 Overall, Ale appears well and is not having any [...] to actually speak with Dr. Dwyer at [facility] to make sure that it is okay with him from a long-term standpoint. The other option would be to stop her statin cholesterol medication and use an alternative class of medication for the cholesterol. She advised me that she is going to be having monthly lab work for liver tests at [facility] and I advised her to try to [...] questions I can be of assistance with. Ale was comfortable with this plan. Thank you again for allowing me to participate in Ale's care. I shall continue to keep you advised of her progress. Plan Of Treatment Pending Test Test Name Order Date CHEM 7 PROFILE 05/13/2023 LIVER PROFILE 09/30/2023 LIVER PROFILE 11/09/2023 LIVER PROFILE 12/12/2023 LIVER PROFILE 05/13/2023 LIVER PROFILE 06/13/2024 LIVER PROFILE 01/27/2024 LIVER PROFILE 05/04/2023 LIVER PROFILE 06/20/2023 IRON + IBC (FE) 05/04/2023 CRP 05/04/2023 CBC w DIFF 05/25/2023 CBC w DIFF 05/04/2023 SED RATE (ESR) 05/04/2023 LIVER KIDNEY MICROSOMAL AB (LKM AB) 04/24 MRI ABD W&WO CONTRAST 05/13/2023 US LIVER BIOPSY CORE GUIDE 05/25/2023 FLUOR. ANTINUCLEAR AB SCREEN (CARLINE) 04/23 Prothrombin Time INR 05/25/2023 Partial Thromboplastin Time 05/25/2023 Mitochondrial Antibody 05/13/2023 US biopsy liver 06/15/2023 Next Appt Details Provider Name:Sav Mari , 06/07/2025 09:20:00 AM, [address] [place] [address], [address], [place], [address], Insurance Providers Payer Name Payer Address Payer Phone Subscriber Number Group Number Insured Name Patient Relationship to Insured Coverage Start Date Coverage End Date [employer] [address] [place] [address] [phone] [id number] ALE MARAVILLA Self - patient is the insured Medical (General) History Medical History History ICD Code Hypertension Precancerous cells in right breast 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 Flores in [place]. She describes that the small bowel video capsule study did reveal multiple teleangiectasias in the small bowel which were not treated endoscopically. She has been on iron replacement therapy which has kept her hemoglobin stable. Panic attacks Hyperlipidemia--stopped statin beginning of 04/2023 Colonoscopy every 5 years--a lways neg for polyps--most recent was in 2019 Dr. So in [place] EGD was negative during a workup for her anemia and the T Denies FL,DM,CVA,Lung disease,renal dise ase Elevated alkaline phosphatas e of 500-600 in 2022. Laboratories were all negative for any autoimmune liver disease or any other etiologies of liver disease. A subsequent liver biopsy showed some bile duct injury and information but without any definitive evidence of primary biliary cholangitis.She was started on Ursodiol and Colchicine. She was seen by Dr. Dwyer at [facility] for second opinion in September of 2023. Her colchicine(09/2023) and then her ursodiol(10/2023) were subsequently stopped and her LFT's remained normal as of the 11/09/23 OV. She was started on Rosuvasta tin in the spring and the alkaline phosphatase whitney to about 3 times normal. She was started back on ursodiol by Dr. Dwyer at [facility] and her liver tests normalized despite remaining on the rosuvastatin. Surgical History Surgery Date(Month/Year) Biopsy of breast-- precancer ous cells--no treatment--sees Dr. Rosa 2010
--- OUTSIDE RECORDS SUMMARY | 2024-10-30 09:57 | XMS_ITS | Encounter Summary ---
Author Organization [facility] Address [address] [place] [address] Care Team Providers Care Healthcare Consulting Manager Name Role Phone Bonnie Spain GUT SNATCHER Primary Care Provider [phone] Reason for Visit * Reason Comments Medication Visit Hypertension Encounter Details Date Type Department Care Team (Late st Contact Info) Description 10/24/2024 2:30 PM EST Office Visit Internal Medicine [place] [facility] [address] [place] [phone] Bonnie Spain NP [address] [place] [address] Essential (primary) hypertension (Primary Dx) Social History Tobacco Use Types Packs/Day Years [...] care for your loved ones. For example, child monitor or elderly care for an older adult? [...] on file Sexual Orientation Not on file documented as of this encounter Last Filed Vital Signs Vital Sign Reading Time Taken Comments Blood Pressure 134/70 10/24/2024 2:34 PM EST Pulse 96 10/24/2024 2:26 PM EST Temperature - - Respiratory Rate - - Oxygen Saturation - - Inhaled Oxygen Concentration - - Weight 58.5 kg (129 lb) 10/24/2024 2:26 PM EST Height 157.5 cm (5' 2 ) 10/24/2024 2:26 PM EST Body Mass Index 23.59 10/24/2024 2:26 PM EST documented in this encounter Progress Notes * Bonnie Spain NP - 10/24/2024 2:30 PM EST CHIEF COMPLAINT: Medication Visit and Hypertension IDENTIFIER: Ale Nash is a 69 y.o. old female. HPI: Ale Nash is here for hypertension follow-up. HCTZ added to lisinopril at her last office visit for optimal BP control. Denies any adverse effects of medication, denies acute headaches,visual changes or cardiorespiratory complaints. She has not been monitoring her blood pressure at home. She was referred urgently to general surgery for an infected abscess on the right side of her neck which was immediately I&D and has completely resolved since. ROS: Constitutional: no weakness fever/ sweats, or weight change HEENT: no acute vision changes, ear pain, sore throat, nasal discharge. Respiratory: no shortness of breath, cough or wheezing Cardiovascular:no chest pain or palpitations, no orthopnea or edema GI: no nausea, vomiting or diarrhea; no rectal bleeding or dark stools MSK: no joint or muscle pain, swelling or impaired ROM Neuro: no acute headaches, dizziness, weakness. 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 ferrous sulfate 325 mg (65 mg elemental iron) tablet Take 1 tablet (325 mg total) by mouth every other day. lisinopril-hydroCHLOROthiazide (PRINZIDE,ZESTORETIC) 20-12.5 mg per tablet Take 1 tablet by mouth 1(one) time each day. 30 each 11 rosuvastatin (CRESTOR) 5 mg tablet TAKE 1 TABLET BY MOUTH DAILY 90 tablet 1 sertraline (ZOLOFT) 50 mg tablet Take 1 tablet (50 mg total) by mouth 1 (one) time each day. ursodioL (ACTIGALL) 300 mg capsule Take 3 capsules (900 mg total) by mouth 1 (one) time each day. ALLERGIES: No Known Allergies PHYSICAL EXAM: Visit Vitals BP 134/70 Pulse 96 Ht 1.575 m (62 ) Wt 58.5 kg (129 lb) BMI 23.59 kg/m?? OB Status Postmenopausal Smoking Status Never BSA 1.59 m?? General: the patient is awake, alert, cooperative and in no acute distress. Head/Neck: Neck supple, PERRLA, EOMI Lungs: clear to auscultation without increased respiratory rate or effort. Heart: RRR. S1 and S2 heard, no MRG Extremities: no edema, motor/sensory intact, +equal pulses b/l NEURO: AAOx3, CN intact SKIN: skin intact without obvious rashes, sores or lesions. LABS: Lab Results Component Value Date GLUCOSE 90 10/17/2024 CALCIUM 10.5 10/17/2024 NA 142 10/17/2024 K 4.1 10/17/2024 CO2 34 (H) 10/17/2024 CL 106 10/17/2024 BUN 14 10/17/2024 CREATININE 0.70 10/17/2024 IMPRESSION: 1. Essential (primary) hypertension ASSESMENT/ PLAN: HTN: improved. Continue current meds. Reviewed lifestyle mods to help manage HTN Including low sodium diet and exercise and optimal weight control.BMP is UTD Medication and lab orders: No orders of the defined types were placed in this encounter. Other orders: None Bonnie Spain NP on 10/24/2024 at 2:56 PM EST Today's documentation was made using voice recognition software.This note may contain grammatical errors secondary to this software. documented in this encounter Plan of Treatment Upcoming Encounters Date Type Department Care Team (Late st Contact Info) Description 11/16/2024 11:00 AM EDT Procedure visit General Surgery - [place] [address] [facility] [address] [place] [phone] Kush Bolaños MD [address] [facility] [address] [place] [address] 05/21/2025 9:00 AM EDT [facility] [address] [facility] [place] [address] Bonnie Spain NP [address] [place] [address] documented as of this encounter Visit Diagnoses Diagnosis Essential (primary) hypertension- Primary Unspecified essential hypertension documented in this encounter Additional Health Concerns Assessment Noted Time PHQ-9 Depression Total Score: 0 09/08/19 25 1:23 PM EST documented as of this encounter Care Teams Healthcare Consulting Manager Relationship Specialty Start Date End Date Bonnie Spain NP [address] [place] [address] PCP - General 08/18/22 documented as of this encounter
--- OUTSIDE RECORDS SUMMARY | 2024-10-30 09:57 | XMS_ITS ---
Author Organization [facility] Address [address] [place] [address] [address] [place] [address] Care Team Providers Care Tree Wrapper Name Role Phone Grabiel FAITH, Bonnie Primary Care Provider Sav Shabazz Unavailable [phone] REASON FOR VISIT Need dose of the Ursodiol to be able to send a refill for her Medications Medication SIG (Take, Route, Fr equency, Duration) Notes Start Date End Date Status Ursodiol 300 MG [address] ee times a day for 90 days 06/06/2024 Active Encounters Encounter Location Date Provider Diagnosis [facility] [address] [place] [phone] 06/06/2024 Sav Mari Plan Of Treatment Medication Medication Name Sig Start Date Stop Date Notes Ursodiol 300 MG [address] ee times a day for 90 days 06/06/2024 Next Appt Details Provider Name:Sav Mari , 06/07/2025 09:20:00 AM, [address] [place] [address], [address], [place], [address], Progress Notes * JAJA MARAVILLAB: (69 yo F)Acc No.[id number]:06/06/2024 Patient:?TERRY JULIANAElaine ANJUM :1955???Age:69 Y???Sex:Female Address:[address] [place] [address] [place], [address] * Refills? Start Ursodiol Capsule, 300 MG, Orally, 270 Capsule, 1 capsule, Three times a day, 90 days, Refills=3 * true * Date:? Generated for Power burgos/Faby/Sandiitting on:?10/30/2024 09:56 AM EDT
--- OUTSIDE RECORDS SUMMARY | 2024-10-30 09:57 | XMS_ITS | Encounter Summary ---
Author Organization [facility] Address [address] [place] [address] Care Team Providers Care Photography Manager Name Role Phone Bonnie Spain NP Primary Care Provider [phone] Reason for Visit * Reason Onset Date Comments Prior Authorization 10/26/2024 11/16/24 Dr. Kush Bolaños Encounter Details Date Type Department Care Team (Late st Contact Info) Description 10/26/2024 Telephone General Surgery - [place] [address] [facility] [address] [place] [phone] Sandy Bailey MD [address] [facility] [address] [facility] [address] [place] [address] Prior Authorization (11/16/24 Dr. Kush Bolaños) Social History Tobacco Use Types Packs/Day Years [...] care for your loved ones. For example, children's tutor nursery or elderly care for an older adult? [...] on file documented as of this encounter Progress Notes * Lydiayuki Ayers - 10/26/2024 4:04 PM EST She is having an in-office surgery with Dr. Bolaños on 11/16/24. She has BC for insurance. I went online and no authorization is required for CPT codes 34055, [address]2843 documented in this encounter Plan of Treatment Upcoming Encounters Date Type Department Care Team (Late st Contact Info) Description 11/16/2024 11:00 AM EDT Procedure visit General Surgery - [place] [address] [facility] [address] [place] [phone] Kush Bolaños MD [address] [facility] [address] [place] [address] 05/21/2025 9:00 AM EDT Office Visit Internal Medicine - [facility] [address] [place] [address] Bonnie Spain NP [address] [place] [address] documented as of this encounter Visit Diagnoses Not on filedocumented in this encounter Additional Health Concerns Assessment Noted Time PHQ-9 Depression Total Score: 0 09/08/19 25 1:23 PM EST documented as of this encounter Care Teams Photography Manager Relationship Specialty Start Date End Date Bonnie Spain NP [address] [place] [address] PCP - General 08/18/22 documented as of this encounter
--- OUTSIDE RECORDS SUMMARY | 2024-10-30 09:57 | XMS_ITS | Clinical Summary ---
Author Organization [address] [facility] Address [address] [place] [phone] Phone Care Team Providers Care Sand Conditioner Name Role Phone Bonnie Spain NP Primary Care Provider [phone] Allergies No known active allergies Medications cholecalciferol (VITAMIN D-3) 25 mcg (1,000 unit) tablet Take 1 tablet (1,000 Units total) by mouth 1 (one) time each day. 05/16/2024 Active ferrous sulfate 325 mg (65 mg elemental iron) tablet Take 1 tablet (325 mg total) by mouth every other day. 03/29/2023 Active sertraline (ZOLOFT) 50 mg tablet Take 1 tablet (50 mg total) by mouth 1 (one) time each day. Active ursodioL (ACTIGALL) 300 mg capsule Take 3 capsules (900 mg total) by mouth 1 (one) time each day. 05/16/2024 Active rosuvastatin (CRESTOR) 5 mg tablet TAKE 1 TABLET BY MOUTH DAILY 90 tablet 1 09/11/2024 Active lisinopril-hydr oCHLOROthiazide (PRINZIDE,ZESTO RETIC) 20-12.5 mg per tablet Take 1 tablet by mouth 1 (one) time each day. 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 Kush Bolaños) 10/24/2024 2:30 PM EST Office Visit Internal Medicine - [address] [address] Bonnie Spain NP Essential (primary) hypertension (Primary Dx) 09/14/2024 11:15 AM EST Consult [address] [address] Kush Bolaños MD Infected sebaceous cyst (Primary Dx); Cellulitis, face 09/13/2024 10:15 AM EST Office Visit Internal Medicine - [address] [phone] Bonnie Spain NP Essential (primary) hypertension (Primary [...] care for your loved ones. For example, rn maternal child or elderly care for an older adult? [...] Pulse 96 10/24/2024 2:26 PM EST Temperature 36.4 ??C (97.6 ??F) 09/14/2024 11:[address] Respiratory Rate - - Oxygen Saturation - - Inhaled Oxygen Concentration - - Weight 58.5 kg (129 lb) 10/24/2024 2:26 PM EST Height 157.5 cm (5' 2 ) 10/24/2024 2:26 PM EST Body Mass Index 23.59 10/24/2024 2:26 PM EST Plan of Treatment Upcoming Encounters Date Type Department Care Team (Late st Contact Info) Description 11/16/2024 11:00 AM EDT Procedure visit General Surgery [facility] [address] [phone] Kush Bolaños MD [address] [address] 05/21/2025 9:00 AM EDT [facility] [address] [place] [address] Bonnie Spain, MARCELL [address] [place] [address] Health Maintenance Due Date Last Done Comments Hepatitis A Vaccines (1 of 2 - Risk 2-dose series) 1975 Hepatitis B Vaccines (1 of 3 - Risk 3-dose series) 2016 RSV Immunization Patients 60+ Years Old (1 - Risk 60-74 years 1-dose series) 2016 Medicare Annual Wellness Visit 09/22/2023 Osteoporosis Screening (Bone Density Screening) 09/22/2023 COVID-19 Vaccine ( - season) 2024 Influenza Vaccine (#1) 2024 , 06/23/2022, 06/08/2021, Additional history exists Colorectal Cancer Screening: Colonoscopy 06/26/2025 06/26/2020 Social Influencers of Health Screening 09/08/2025 09/08/2024 Depression Screening 10/17/2025 10/17/2024, 05/16/20 Hypertension/CHF/CAD Annual BMP Blood Test 10/17/2025 10/17/2024, 05/22/2024, 05/22/2024, Additional history exists Falls Risk Assessment 10/24/2025 10/24/2024, 024 Breast Cancer Screening 04/23/2026 04/23/2024 DTaP,Tdap,and Td [...] mg/dL LAB CHEMISTRY METHOD 10/17/2024 2:59 PM EST [facility] Triglycerides 78 0 - 150 mg/dL LAB CHEMISTRY METHOD 10/17/2024 2:59 PM EST [facility] HDL 76 >=40 mg/dL LAB CHEMISTRY METHOD 10/17/2024 2:59 PM EST [facility] LDL Calculated 108(H) 0 - 100 mg/dL LAB CHEMISTRY METHOD 10/17/2024 2:59 PM EST [facility] VLDL Cholesterol Robert 15.6 mg/dL LAB CHEMISTRY METHOD 10/17/2024 2:59 PM EST [facility] Non HDL Chol. (LDL+VLDL) 124 <145 mg/dL LAB CHEMISTRY METHOD 10/17/2024 2:59 PM [facility] Chol/HDL Ratio 2.6 0.0 - 4.4 LAB CHEMISTRY METHOD 10/17/2024 2:59 PM [facility] Blood Venous blood specimen / Unknown Venipuncture / Unknown 10/17/2024 11:19 AM EST 10/17/2024 11:19 AM EST Bonnie Spain NP LAB BLOOD ORDERABLES Final Resu lt Performing Organization Address City/[facility]/ZIP Co de Phone Number [facility] [address] [place] [address], [place] [phone] * Iron and TIBC (10/17/2024 11:19 AM EST) Iron 98 40 - 150 mcg/dL LAB CHEMISTRY METHOD 10/17/2024 2:59 PM [facility] TIBC 342 250 - 450 mcg/dL LAB CHEMISTRY METHOD 10/17/2024 2:59 PM [facility] Iron Saturation 29 15 - 50 % LAB CHEMISTRY METHOD 10/17/2024 2:59 PM [facility] Blood Venous blood specimen / Unknown Venipuncture / Unknown 10/17/2024 11:19 AM EST 10/17/2024 11:19 AM EST Bonnie Spain NP LAB BLOOD ORDERABLES Final Resu lt [facility] [address] [place] [address], [place] [phone] * Alanine aminotransferase (10/17/2024 11:19 AM EST) ALT (SGPT) 20 10 - 60 unit/L LAB CHEMISTRY METHOD 10/17/2024 2:46 PM EST [facility] Blood Venous blood specimen / Unknown Venipuncture / Unknown 10/17/2024 11:19 AM EST 10/17/2024 11:19 AM EST Bonnie Spain NP LAB BLOOD ORDERABLES Final Resu lt Performing Organization Address [facility]/ZIP Co de Phone Number [facility] [address] [place] [address], [place] [phone] * Aspartate aminotransferase (10/17/2024 11:19 AM EST) AST (SGOT) 17 10 - 42 unit/L LAB CHEMISTRY METHOD 10/17/2024 2:59 PM [facility] Blood Venous blood specimen / Unknown Venipuncture / Unknown 10/17/2024 11:19 AM EST 10/17/2024 11:19 AM EST Bonnie Spain SCADA TECHNICIAN LAB BLOOD ORDERABLES Final Resu lt Performing Organization Address City/[facility]/ZIP Co de Phone Number [facility] [address] [place] [address], [place] [phone] * (ABNORMAL) Basic metabolic panel (10/17/2024 11:19 AM EST) Pathologist [facility] Sodium 142 133 - 145 mmol/L LAB CHEMISTRY METHOD 10/17/2024 3:00 PM [facility] Potassium 4.1 3.5 - 5.5 mmol/L LAB CHEMISTRY METHOD 10/17/2024 3:00 PM [facility] Chloride 106 96 - 110 mmol/L LAB CHEMISTRY METHOD 10/17/2024 3:00 PM [facility] CO2 34(H) 21 - 32 mmol/L LAB CHEMISTRY METHOD 10/17/2024 3:00 PM [facility] Anion Gap 2(L) 3 - 11 LAB CHEMISTRY METHOD 10/17/2024 3:00 PM [facility] Glucose 90 70 - 100 mg/dL LAB CHEMISTRY METHOD 10/17/2024 3:00 PM [facility] BUN 14 5 - 25 mg/dL LAB CHEMISTRY METHOD 10/17/2024 3:00 PM [facility] Creatinine 0.70 0.50 - 1.10 mg/dL LAB CHEMISTRY METHOD 10/17/2024 3:00 PM [facility] eGFR 94 >=60 mL/min/1. 73m2 LAB CHEMISTRY METHOD 10/17/2024 3:00 PM [facility] Comment:Calculation based on the??Chronic Kidney Disease Epidemiology Collaboration (CKD-EPI) equation refit??without adjustment for race. BUN/Creatinine Ratio 20.0 LAB CHEMISTRY METHOD 10/17/2024 3:00 PM [facility] Calcium 10.5 8.5 - 10.5 mg/dL LAB CHEMISTRY METHOD 10/17/2024 3:00 PM [facility] Blood Venous blood specimen / Unknown Venipuncture / Unknown 10/17/2024 11:19 AM EST 10/17/2024 11:19 AM EST Bonnie Spain NP LAB BLOOD ORDERABLES Final Resu lt [facility] [address] [place] [address], * External clinical lab (10/13/2024) Provider [facility] LAB BLOOD ORDERABLES Fin al Result * Falls Risk Assessment (05/16/2024) Falls Risk Assessment ABSTRACTED Historical Provider HEALTH MAINTENANCE Final Result * Depression Screening (05/16/2024) Depression Screening ABSTRACTED Historical Provider HEALTH MAINTENANCE Final Result * Hepatitis C Screening (09/28/2022) Hepatitis C Screening ABSTRACTED Historical Provider HEALTH MAINTENANCE Final Result * Colonoscopy (06/26/2020) Colonoscopy NO INTERPRETATION , ABSTRACTED Anatomical Region Laterality Modality Other Historical Provider HEALTH MAINTENANCE Final Result from Last 3 Months or Most Recently Relevant to Health Maintenance Insurance [employer] [place] MEDICARE ADVANTAGE Care Teams Sand Conditioner Relationship Specialty Start Date End Date Bonnie Spain NP [facility] [place] [address] PCP - General 08/18/22
[2024-10-30] MEDS: gadobutroL 7.5 ML VIAL IVPUSH (10:24)
== END 2024-10-30 09:18 | disposition home or self-care (01) ==
LOC: HO.MRI 09:17
PROVIDERS: PCP Nurse Practitioner Primary Care; Visit Provider Surgery
DX: Z12.39 Encounter for other screening for malignant neoplasm of breast (principal); Z91.89 Other specified personal risk factors, not elsewhere classified; Z86.000 Personal history of in-situ neoplasm of breast
CPT/HCPCS: 77049; A9585

== ENCOUNTER → 2024-10-30 09:29 | Outpatient (BNV) | payer MEDICARE, SELFPAY | PROVIDERS: PCP Nurse Practitioner Primary Care; Visit Provider Internal Medicine | DX: Z86.000 Personal history of in-situ neoplasm of breast (principal) | CPT/HCPCS: 77049 ==

== ENCOUNTER 2024-12-26 10:41 | Outpatient (REF) | payer MEDICARE, SELFPAY ==
--- NOTE | ~2024-12-26 | XR_ITS ---
CLINICAL HISTORY: CHRONIC COUGH 2 view chest x-ray. Comparison: None Findings: Normal lung volumes. Lungs are clear. No pneumothorax or pleural effusion. Heart size normal. No passive venous congestion. No midline shift or tracheal deviation. No acute fracture. Eventration right hemidiaphragm. Impression: 1. No acute cardiopulmonary disease. This document has been electronically signed by: Star Fofana MD on 12/27/2024 08:30:16
--- NOTE | ~2024-12-26 | XR_ITS ---
CLINICAL HISTORY: SINUSITIS 5 view sinuses Comparison: None Findings: Paranasal sinuses and mastoid air cells are clear. No fractures. Impression: 1. Normal paranasal sinuses. This document has been electronically signed by: Star Fofana MD on 12/27/2024 09:13:42
--- OUTSIDE RECORDS SUMMARY | 2024-12-26 12:20 | XMS_ITS | Patient Health Record ---
Author Organization [facility] Address [address] [place] [address] Care Team Providers Care Braided Band Assembler Name Role Phone Grabiel FAITH, Bonnie Primary Care Provider Sav Shabazz Unavailable [phone] Allergies No Known Allergies Results Component Value [...] Problem Status W/U Status Risk Notes Problem 243315496 Elevated liver function tests (R79.89) Active confirmed Problem 63659890 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) Active confirmed Problem 925290633 Elevated alkaline phosphatase level (R74.8) Active confirmed Problem Elevated liver function tests (R94.5) Active confirmed Problem 094939641 Abnormal alkaline phosphatase test (R74.8) Active confirmed Vital Signs Blood pressure diastolic 82 mm Hg 06/13/2024 Height 5 ft 3 in in 06/13/2024 Blood pressure systolic 104 mm Hg 06/13/2024 Weight 127 lbs 06/13/2024 BMI 22.49 kg/m2 06/13/2024 Encounters Encounter Location Date Provider Diagnosis [facility] [address] [place] [phone] 06/13/2024 Sav Mari Elevated liver function tests R79.89 and Elevated alkaline phosphatase level R74.8 [facility] [address] [place] [phone] 01/27/2024 Sav Mari Elevated liver function tests R94.5 [facility] [address] [place] [phone] 04/03/2024 Sav Mari [facility] [address] [place] [phone] 06/06/2024 Sav Mari Assessments Encounter Date Diagnosis (ICD Code) Assessment Notes Treatment Notes Treatment Clinical Notes Section Notes 06/13/2024 Elevated liver function tests (ICD-10 - R79.89) Ask Dr. 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 Overall, Ale [...] to actually speak with Dr. Dwyer at [facility] to make sure that it is okay with him from a long-term standpoint. The other option would be to stop her statin cholesterol medication and use an alternative class of medication for the cholesterol. She advised me that she is going to be having monthly lab work for liver tests at [facility] and I advised her to try [...] to actually speak with Dr. Dwyer at [facility] to make sure that it is okay with him from a long-term standpoint. The other option would be to stop her statin cholesterol medication and use an alternative class of medication for the cholesterol. She advised me that she is going to be having monthly lab work for liver tests at [facility] and I advised her to try [...] to keep you advised of her progress. 01/27/2024 Elevated liver function tests (ICD-10 - R94.5) 06/13/2024 Other We will schedule your screening [...] to actually speak with Dr. Dwyer at [facility] to make sure that it is okay with him from a long-term standpoint. The other option would be to stop her statin cholesterol medication and use an alternative class of medication for the cholesterol. She advised me that she is going to be having monthly lab work for liver tests at [facility] and I advised her to try [...] Date CHEM 7 PROFILE 05/13/2023 LIVER PROFILE 06/20/2023 LIVER PROFILE 09/30/2023 LIVER PROFILE 11/09/2023 LIVER PROFILE 12/12/2023 LIVER PROFILE 05/13/2023 LIVER PROFILE 06/13/2024 LIVER PROFILE 01/27/2024 LIVER PROFILE 05/04/2023 IRON + IBC (FE) 05/04/2023 CRP 05/04/2023 [...] Name:Sav Mari , 06/07/2025 09:20:00 AM, [address], [address], [place], [address], Insurance Providers Payer Name Payer Address Payer Phone Subscriber Number Group Number Insured Name Patient Relationship to Insured Coverage Start Date Coverage End Date [facility] [address] [place] [address] [id number] ALE MARAVILLA Self - patient is the insured Medical (General) History Medical History History ICD Code Hypertension Precancerous cells in right breast 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 Flores in [place]. She describes that the small bowel video capsule study did reveal multiple teleangiectasias in the small bowel which were not treated endoscopically. She has been on iron replacement therapy which has kept her hemoglobin stable. Panic attacks Hyperlipidemia--stopped statin beginning of 04/2023 Colonoscopy every 5 years--a lways neg for polyps--most recent was in 2019 Dr. So in [place] EGD was negative during a workup for her anemia and the HHT Denies OH,DM,CVA,Lung disease,renal dise ase Elevated alkaline phosphatas e of 500-600 in 2022. Laboratories were all negative for any autoimmune liver disease or any other etiologies of liver disease. A subsequent liver biopsy showed some bile duct injury and information but without any definitive evidence of primary biliary cholangitis.She was started on Ursodiol and Colchicine. She was seen by Dr. Dwyer at [facility] for second opinion in September of 2023. Her colchicine(09/2023) and then her ursodiol(10/2023) were subsequently stopped and her LFT's remained normal as of the 11/09/23 OV. She was started on Rosuvasta tin in the spring and the alkaline phosphatase whitney to about 3 times normal. She was started back on ursodiol by Dr. Dwyer at [facility] and her liver tests normalized despite remaining on the rosuvastatin. Surgical History Surgery Date(Month/Year) Biopsy of breast-- precancer ous cells--no treatment--sees Dr. Rosa 2010
--- OUTSIDE RECORDS SUMMARY | 2024-12-26 12:20 | XMS_ITS ---
Author Organization [facility] Address [address] [place] [address] Care Team Providers Care Topography Technician Name Role Phone Bonnie Spain NP Primary Care Provider Sav Shabazz [phone] REASON FOR VISIT diarrhea Encounters Encounter Location Date Provider Diagnosis [facility] [address] [place] [address] 04/03/2024 Sav Mari Plan Of Treatment Next Appt Details Provider Name:Sav Mari , 06/07/2025 09:20:00 AM, [address], [address], [place], [address], Progress Notes * JAJA MARAVILLAB: (69 yo F)Acc No.[id number]:04/03/2024 Patient:?Elaine MARAVILLA :1955???Age:69 Y???Sex:Female Address:[address] [place], [address] * true * Date:? Generated for Power burgos/Faby/eTransmitting on:?12/26/2024 12:20 PM EDT
--- OUTSIDE RECORDS SUMMARY | 2024-12-26 12:20 | XMS_ITS ---
Author Organization [facility] Address [address] [place] [address] Care Team Providers Care Asset Protection Representative Name Role Phone Grabiel FAITH, Bonnie Primary Care Provider Sav Shabazz Unavailable [phone] Allergies No Known Allergies REASON FOR VISIT [...] 06/13/2024 Encounters Encounter Location Date Provider Diagnosis [facility] [address] [place] [address] 06/13/2024 Sav Mari Elevated liver function tests R79.89 and Elevated alkaline phosphatase level R74.8 Assessments Encounter Date Diagnosis (ICD Code) Assessment Notes Treatment Notes Treatment Clinical Notes Section Notes 06/13/2024 Elevated liver function tests (ICD-10 - R79.89) Ask Dr. Dwyer if he wants you to stay on the Ursodiol senior living with your cholesterol medicine, Rosuvastatin. Overall, Mickey [...] to actually speak with Dr. Dwyer at [facility] to make sure that it is okay with him from a long-term standpoint. The other option would be to stop her statin cholesterol medication and use an alternative class of medication for the cholesterol. She advised me that she is going to be having monthly lab work for liver tests at [facility] and I advised her to try [...] to actually speak with Dr. Dwyer at [facility] to make sure that it is okay with him from a long-term standpoint. The other option would be to stop her statin cholesterol medication and use an alternative class of medication for the cholesterol. She advised me that she is going to be having monthly lab work for liver tests at [facility] and I advised her to try [...] to actually speak with Dr. Dwyer at [facility] to make sure that it is okay with him from a long-term standpoint. The other option would be to stop her statin cholesterol medication and use an alternative class of medication for the cholesterol. She advised me that she is going to be having monthly lab work for liver tests at [facility] and I advised her to try [...] you to stay on the Ursodiol senior living with your cholesterol medicine, Rosuvastatin. Other We will schedule you r screening colonoscopy when I see you in followup in May of 2025 Pending Test Test Name Order Date LIVER PROFILE 06/13/2024 Next Appt Details Follow Up: 1 Year, Reason: Provider Name:Sav Mari , 06/07/2025 09:20:00 AM, [address] [place] [address], [address], [place], [address], Progress Notes * TERRY ANDREWS VASHTIADOB: (69 yo F)Acc No.[id number]:06/13/2024 Progress Notes Patient:?Elaine MARAVILLA Provider:?Sav Mari MD :1955???Age:69 Y???Sex:Female D ate:06/13/2024 Address:[address] [place] [address] [id number] Pcp:Bonnie Spain NP Subjective: * Chief Complaints: [...] per the recommendation of Dr. Dwyer at [facility]. She has continued the rosuvastatin and her [...] to actually speak with Dr. Dwyer at [facility] to make sure that it is okay with him from a long-term standpoint. The other option would be to stop her statin cholesterol medication and use an alternative class of medication for the cholesterol. She advised me that she is going to be having monthly lab work for liver tests at [facility] and I advised her to try [...] you to stay on the Ursodiol senior living with your cholesterol medicine, Rosuvastatin.??2.?Others? Continue Ursodiol Capsule, 300 MG, take 2 every morning and 1 every evening, Orally, Twice a day. ? Notes: We will schedule your screening colonoscopy when I see you in followup in May of 2025 ? * Immunizations:? Pneumococcal (Not administered - Refused: Patient decision) * Procedure Codes:?3017F COLOR ECTAL CA SCREEN DOC [id number] TOBACCO [id number] BP SCR NOT PRFRM REC REASON NOS [...] MD Date:? 024 Generated for Power burgos/Faby/Sandiitting on:?12/26/2024 12:20 PM EDT History and Physical Notes * HPI (History of Present Illness) Category Sub-Category Detail Notes Category Not es incontinence I saw Mickey in followup today in regard to her elevated LFTs and discussion of colorectal cancer screening. Since I last saw Mikcey in October she reports that she has [...] per the recommendation of Dr. Dwyer at [facility]. She has continued the rosuvastatin and her [...]
--- OUTSIDE RECORDS SUMMARY | 2024-12-26 12:21 | XMS_ITS | Clinical Summary ---
Author Organization [facility] Address [address] [place] [phone] Phone Care Team Providers Care Home Lighting Adviser Name Role Phone Bonnie Spain NP Primary Care Provider [phone] Allergies No known active allergies Medications cholecalciferol [...] 1 (one) time each day. 05/16/2024 Active lisinopril-hydr oCHLOROthiazide (PRINZIDE,ZESTO RETIC) 20-12.5 mg per tablet Take 1 tablet by mouth 1 (one) time each day. 30 each 11 09/13/2024 09/13/19 26 Active rosuvastatin (CRESTOR) 5 mg tablet Take 1 tablet (5 mg total) by mouth 1 (one) time each day. 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 Kush Bolaños) 10/24/2024 2:30 PM EST Office Visit Internal Medicine - [address] [phone] Bonnie Spain NP Essential (primary) hypertension (Primary Dx) from Last 3 Months Immunizations Name Administration [...] anemia DX:Fe defic iency anemia Arriaga-Osler syndrome (CMS/HCC V24) DX:Arriaga-Osler syndrome (HCC) Family History Medical History Relation [...] for your loved ones. For example, child and family services specialist or elderly care for an older adult? [...] Sign Reading Time Taken Comments Blood Pressure 142/82 11/02/2024 9:11 AM EDT Pulse 77 11/02/2024 9:11 AM EDT Temperature 36.4 ??C (97.6 ??F) 09/14/2024 11:[address] Respiratory Rate - - Oxygen Saturation 98% 11/02/2024 9:11 AM EDT Inhaled Oxygen Concentration - - Weight 58.5 kg (129 lb) 10/24/2024 2:26 PM EST Height 157.5 cm (5' 2 ) 10/24/2024 2:26 PM EST Body Mass Index 23.59 10/24/2024 2:26 PM EST Plan of Treatment Upcoming Encounters Date Type Department Care Team (Late st Contact Info) Description 05/21/2025 9:00 AM EDT Office Visit Internal Medicine - [facility] [address] [place] [address] Bonnie Spain NP [address] [place] [address] Health Maintenance Due Date Last Done Comments Hepatitis A Vaccines (1 of 2 - Risk 2-dose series) 1975 Hepatitis B Vaccines (1 of 3 - Risk 3-dose series) 2016 RSV Immunization Adult Patients (1 - Risk 60-74 years 1-dose series) 2016 Medicare Annual Wellness Visit 09/22/2023 Osteoporosis Screening (Bone Density Screening) 09/22/2023 COVID-19 Vaccine ( season) 2024 Influenza Vaccine (Season Ended) 2025 04/23/2023, 06/23/2022, 06/08/2021, Additional history exists Colorectal Cancer [...] age to complete this topic Meningococcal B Vaccine Aged Out No l onger eligible based on patient's age to complete this topic RSV Immunization Patients Under 20 months Aged Out No longer eligible based on patient's age to complete this topic Varicella Vaccines Aged Out No longer eligible based on patient's age to complete this topic Procedures Procedure Name Priority Date/Time Associated Diagnosis Comments POC URINE NON-AUTO W/O MICRO Routine 11/02/2024 5:40 PM EDT Acute cystitis without hematuria URINALYSIS MICROSCOPIC ONLY Routine 11/02/2024 4:42 PM EDT Acute cystitis without hematuria URINALYSIS MICROSCOPIC ONLY Routine 11/02/2024 4:42 PM EDT Acute cystitis without hematuria CULTURE URINE Routine 11/02/2024 4:42 PM EDT Acute cystitis without hematuria BASIC METABOLIC PANEL Routine 10/17/2024 11:19 AM EST Essential (primary) hypertension ALANINE AMINOTRANSFERASE Routine 10/17/2024 11:19 AM EST Other hyperlipidemia ASPARTATE AMINOTRANSFERASE Routine 10/17/2024 11:19 AM EST Other hyperlipidemia LIPID PANEL WITH REFLEX TO DIRECT LDL Routine 10/17/2024 11:19 AM EST Other hyperlipidemia IRON AND TIBC Routine 10/17/2024 11:19 AM EST Iron deficiency anemia due to chronic blood loss EXTERNAL CLINICAL LAB 10/13/2024 HM DEPRESSION SCREENING Routine 05/16/2024 FALLS RISK ASSESSMENT Routine 05/16/2024 HM HEPATITIS C SCREENING Routine 09/28/2022 HM COLONOSCOPY Routine 06/26/2020 from Last 3 Months or Most Recently Relevant to Health Maintenance Results * (ABNORMAL) POC Urine Non-Auto W/O Micro (11/02/2024 5:40 PM EDT) GLUCOSE POC Negative Negative, Trace mg/dL Leukocytes UA POC 2+(A) Negative mg/dL Nitrite UA POC Positive Urobilinogen UA POC >=8.0 E.U./dL mg/dL Protein UA POC Positive Positive, Negative PH UA POC 5.0 HEVER/HM UA POC 250(A) Negative Specific Ullin UA POC 1.010 Ketones UA POC Negative Negative Bilirubin UA POC Negative Negative Urine Urine specimen obtained by clean catch procedure / Unknown 11/02/2024 5:40 PM EDT Edil GALINDO POINT OF CARE TEST ENTER/E DIT ORDERABLES Final Result * (ABNORMAL) Urinalysis microscopic only (11/02/2024 4:42 PM EDT) RBC, Urine 10.0(H) 0 - 4 /HPF LAB URINALYSIS - AUTOMATED METHOD 11/02/2024 8:[address] [facility] WBC, Urine 314.2(H) 0 - 4 /HPF LAB URINALYSIS - AUTOMATED METHOD 11/02/2024 8:[address] [facility] Squamous Epithelial, Urine 16 0 - 60 /LPF LAB URINALYSIS - AUTOMATED METHOD 11/02/2024 8:[address] [facility] Crystals, Urine HEAVY CALCIUM OXALATE /LPF LAB URINALYSIS - AUTOMATED METHOD 11/02/2024 8:[address] [facility] Bacteria, Urine Many(A) Negative /HPF LAB URINALYSIS - AUTOMATED METHOD 11/02/2024 8:[address] [facility] Hyaline Casts, Urine 0.0 0 - 3 /LPF LAB URINALYSIS - AUTOMATED METHOD 11/02/2024 8:[address] [facility] Urine Urine specimen obtained by clean catch procedure / Unknown Non-blood Collection / Unknown 11/02/2024 4:42 PM EDT 11/02/2024 4:42 PM EDT Edil GALINDO LAB URINE ORDERABLES Final Result [facility] [address] [place] [address], * (ABNORMAL) Culture urine (11/02/2024 4:42 PM EDT) Culture, Urine >100,000 CFU/mL Escherichia coli(A) [place] 11/04/2024 11:[address] [facility] Urine Urine specimen obtained by clean catch procedure / Unknown Non-blood Collection / Unknown 11/02/2024 4:42 PM EDT 11/02/2024 4:42 PM EDT Narrative Organism Antibiotic Method Susceptibility Escherichia coli Amoxicillin/Clavulanate [place] <=2 ug/ml: Susceptible Escherichia coli Ampicillin/Sulbactam [place] <=2 ug/ml: Susceptible Escherichia coli Piperacillin/Tazobactam [place] <=4 ug/ml: Susceptible Escherichia coli Cefazolin (Urine) [place] <=1 ug/ml: Susceptible Escherichia coli Cefoxitin [place] <=4 ug/ml: Susceptible Escherichia coli Ceftazidime [place] <=0.5 ug/ml: Susceptible Escherichia coli Ceftriaxone [place] <=0.25 ug/ml: Susceptible Escherichia coli Cefepime [place] <=0.12 ug/ml: Susceptible Escherichia coli Meropenem [place] <=0.25 ug/ml: Susceptible Escherichia coli Amikacin [place] 2 ug/ml: Susceptible Escherichia coli Gentamicin [place] <=1 ug/ml: Susceptible Escherichia coli Ciprofloxacin [place] 1 ug/ml: Resistant Escherichia coli Levofloxacin [place] 1 ug/ml: Intermediate Escherichia coli Nitrofurantoin [place] <=16 ug/ml: Susceptible Escherichia coli Trimethoprim/Sulfamethoxazole [place] <=20 ug/ml: Susceptible us Edil GALINDO LAB MICROBIOLOGY - GENERAL ORDERABLES Final Result [facility] [address] [place] [address], * (ABNORMAL) Lipid panel with reflex to direct LDL (10/17/2024 11:19 AM EST) Cholesterol 200 0 - 200 mg/dL LAB CHEMISTRY METHOD 10/17/2024 2:[address] [facility] Triglycerides 78 0 - 150 mg/dL LAB CHEMISTRY METHOD 10/17/2024 2:[address] [facility] HDL 76 >=40 mg/dL LAB CHEMISTRY METHOD 10/17/2024 2:[address] [facility] LDL Calculated 108(H) 0 - 100 mg/dL LAB CHEMISTRY METHOD 10/17/2024 2:[address] [facility] VLDL Cholesterol Robert 15.6 mg/dL LAB CHEMISTRY METHOD 10/17/2024 2:59 PM [facility] Non HDL Chol. (LDL+VLDL) 124 <145 mg/dL LAB CHEMISTRY METHOD 10/17/2024 2:59 PM [facility] Chol/HDL Ratio 2.6 0.0 - 4.4 LAB CHEMISTRY METHOD 10/17/2024 2:59 PM [facility] Blood Venous blood specimen / Unknown Venipuncture / Unknown 10/17/2024 11:19 AM EST 10/17/2024 11:19 AM EST Bonnie Spain NP LAB BLOOD ORDERABLES Final Resu lt Performing Organization Address [facility]/ZIP Co de Phone Number [facility] [address] [place] [address], [place] [phone] * Iron and TIBC (10/17/2024 11:19 AM EST) Iron 98 40 - 150 mcg/dL LAB CHEMISTRY METHOD 10/17/2024 2:59 PM [facility] TIBC 342 250 - 450 mcg/dL LAB CHEMISTRY METHOD 10/17/2024 2:59 PM [facility] Iron Saturation 29 15 - 50 % LAB CHEMISTRY METHOD 10/17/2024 2:59 PM [facility] Blood Venous blood specimen / Unknown Venipuncture / Unknown 10/17/2024 11:19 AM EST 10/17/2024 11:19 AM EST us Bonnie Spain NP LAB BLOOD ORDERABLES Final Resu lt Performing Organization Address [facility]/ZIP Co de Phone Number [facility] [address] [place] [address], [place] [phone] * Alanine aminotransferase (10/17/2024 11:19 AM EST) ALT (SGPT) 20 10 - 60 unit/L LAB CHEMISTRY METHOD 10/17/2024 2:[address] [facility] Blood Venous blood specimen / Unknown Venipuncture / Unknown 10/17/2024 11:19 AM EST 10/17/2024 11:19 AM EST Bonnie Spain PARER LAB BLOOD ORDERABLES Final Resu lt Performing Organization Address City/[facility]/ZIP Co de Phone Number [facility] [address] [place] [address], [place] [phone] * Aspartate aminotransferase (10/17/2024 11:19 AM EST) Pathologist [facility] AST (SGOT) 17 10 - 42 unit/L LAB CHEMISTRY METHOD 10/17/2024 2:[address] [facility] Blood Venous blood specimen / Unknown Venipuncture / Unknown 10/17/2024 11:19 AM EST 10/17/2024 11:19 AM EST Bonnie Spain NP LAB BLOOD ORDERABLES Final Resu lt Performing Organization Address City/[facility] Co de Phone Number [facility] [address] [place] [address], [place] [phone] * (ABNORMAL) Basic metabolic panel (10/17/2024 11:19 AM EST) Pathologist [facility] Sodium 142 133 - 145 mmol/L LAB CHEMISTRY METHOD 10/17/2024 3:00 PM [facility] Potassium 4.1 3.5 - 5.5 mmol/L LAB CHEMISTRY METHOD 10/17/2024 3:00 PM [facility] Chloride 106 96 - 110 mmol/L LAB CHEMISTRY METHOD 10/17/2024 3:00 PM [facility] CO2 34(H) 21 - 32 mmol/L LAB CHEMISTRY METHOD 10/17/2024 3:00 PM [facility] Anion Gap 2(L) 3 - 11 LAB CHEMISTRY METHOD 10/17/2024 3:[address] [facility] Glucose 90 70 - 100 mg/dL LAB CHEMISTRY METHOD 10/17/2024 3:00 PM [facility] BUN 14 5 - 25 mg/dL LAB CHEMISTRY METHOD 10/17/2024 3:00 PM [facility] Creatinine 0.70 0.50 - 1.10 mg/dL LAB CHEMISTRY METHOD 10/17/2024 3:00 PM [facility] eGFR 94 >=60 mL/min/1. 73m2 LAB CHEMISTRY METHOD 10/17/2024 3:00 PM [facility] Comment:Calculation based on the??Chronic Kidney Disease Epidemiology Collaboration (CKD-EPI) equation refit??without adjustment for race. BUN/Creatinine Ratio 20.0 LAB CHEMISTRY METHOD 10/17/2024 3:00 PM [facility] Calcium 10.5 8.5 - 10.5 mg/dL LAB CHEMISTRY METHOD 10/17/2024 3:00 PM [facility] Blood Venous blood specimen / Unknown Venipuncture / Unknown 10/17/2024 11:19 AM EST 10/17/2024 11:19 AM EST Bonnie Spain NP LAB BLOOD ORDERABLES Final Resu lt [facility] [address] [place] [address], * External clinical lab (10/13/2024) Provider [place] [...] CROSS - [place] MED[place] Care Teams Home Lighting Adviser Relationship Specialty Start Date End Date Bonnie Spain NP [address] [place] [address] PCP - General 08/18/22
--- OUTSIDE RECORDS SUMMARY | 2024-12-26 12:21 | XMS_ITS ---
Author Organization [facility] Address [address] [place] [address] [address] [place] [address] Care Team Providers Care Biodiesel Processing Technician Name Role Phone Grabiel FAITH, Bonnie Primary Care Provider Sav Shabazz Unavailable [phone] REASON FOR VISIT Need dose of the Ursodiol to be able to send a refill for her Medications Medication SIG (Take, Route, Fr equency, Duration) Notes Start Date End Date Status Ursodiol 300 MG 1 capsule [address] Thr ee times a day for 90 days 06/06/2024 Active Encounters Encounter Location Date Provider Diagnosis [facility] [address] [place] [phone] 06/06/2024 Sav Mari Plan Of Treatment Medication Medication Name Sig Start Date Stop Date Notes Ursodiol 300 MG 1 capsule [address] ee times a day for 90 days 06/06/2024 Next Appt Details Provider Name:Sav Mari , 06/07/2025 09:20:00 AM, [address] [place] [address], [address], [place], [address], Progress Notes * JAJA MARAVILLAB: (69 yo F)Acc No.[id number]:06/06/2024 Patient:?TERRY JULIANAElaine ANJUM :1955???Age:69 Y???Sex:Female Address:[address] [place] [address] [place], [address] * Refills? Start Ursodiol Capsule, 300 MG, Orally, 270 Capsule, 1 capsule, Three times a day, 90 days, Refills=3 * true * Date:? Generated for Power bur[employer]/Faby/Maren on:?12/26/2024 12:20 PM EDT
== END 2024-12-26 10:42 | disposition home or self-care (01) ==
LOC: HO.XRAY 10:41
PROVIDERS: PCP Nurse Practitioner Primary Care; Visit Provider Otolaryngology
DX: R05.9 Cough, unspecified (principal); J32.9 Chronic sinusitis, unspecified
CPT/HCPCS: 70220; 71046

== ENCOUNTER → 2024-12-26 10:47 | Outpatient (BNV) | payer MEDICARE, SELFPAY | PROVIDERS: PCP Nurse Practitioner Primary Care; Visit Provider Radiology Diagnostic Radiology | DX: J01.90 Acute sinusitis, unspecified (principal); R05.3 Chronic cough | CPT/HCPCS: 70220; 71046 ==

== ENCOUNTER 2025-02-02 11:32 | Outpatient (AMB) | payer MEDICARE, SELFPAY ==
--- NOTE | 2025-02-02 11:43 | MHC.OFFVIS ---
Vital Signs 02/02/25 11:56 Height 5 ft 3 in Weight 128 lb BMI 22.7 BP 144/77 H Blood Pressure Location Lt brachial Position Sitting Pulse 81 Intake Visit Reasons: 6mth fuv breast exam Intake Note: Patient is seen in office for 6 month follow up visit, breast exam. Pt c/o: denies any concerns or changes MRI:10/30/24 mm sched: 05/21/25 Wood And Hardware Outfitter Required: No Meteorologist Liaison: Meteorologist Liaison Present Accompanied by: Self / Same As Patient Allergies No Known Allergies [No Known Allergies*] Allergy (Unverified 02/02/25 11:57) HPI Comments Details: Ale Cai is a 69-year-old female patient, previous patient of Dr. Soto returning for a six-month follow-up high risk breast examination. 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 She has been followed with yearly mammogram and breast MRI with twice yearly breast examinations. Since her last visit she denies any new palpable mass, nipple discharge, or enlarged lymph nodes. Her last mammogram of 05/18/2024 revealed no mammographic evidence of malignancy (BI-RADS 2). Breast MRI performed on 10/30/2024 revealed bilateral enhancing scattered foci somewhat changed from the prior MRI and 6 month follow up MRI was recommended (BI-RADS 3). She is 1, menarche at the age of 14, menopause at 55. She feels well and denies any ongoing breast symptoms. 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 Generalized anxiety disorder Hereditary hemorrhagic telangiectasia Surgical History History of colonoscopy History of endoscopy (11/09/12) History of right breast biopsy (09/2010) Family History Mother History of skin cancer Father History of skin cancer Social History Alcohol intake: current Alcohol intake frequency: holidays/special occasions only Female Reproductive History Menstrual Age of Menarche: 14 Review of Systems Const All systems reviewed & are unremarkable except as noted in HPI and below Physical Exam Const General: no acute distress and well developed Nutritional Appearance: well nourished Orientation/consciousness: patient oriented x3 Limitations: no limitations Neck Neck: Yes normal visual inspection and Yes no JVD Lymphatic: no lymphadenopathy noted Chest Other: Left breast: No skin change, no nipple retraction, no nipple discharge, no palpable mass, no enlarged lymph nodes. Right breast: No skin change, no nipple retraction, no nipple discharge, no palpable mass, no enlarged lymph nodes Resp Effort & Inspection: normal respiratory effort GI Inspection: Yes normal to inspection Skin Other: Warm, dry, no rash Neuro Other: Mobility Assessment: 5 1. 3 meter assessment time (seconds) 2. 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 Code(s): Z86.000 - Personal history of in-situ neoplasm of breast Category: Surgical Plan: Plan 69-year-old female with a prior history of lobular carcinoma in situ being followed for high risk for breast cancer. She feels well and denies any ongoing breast symptoms. Examination today reveals no suspicious findings in either breast. Her breast MRI on 10/30/2024 revealed bilateral enhancing foci which may have changed slightly from the previous MRI and a 6 month follow up study was recommended. She is scheduled for follow-up mammogram on 05/21/2025 and will be scheduled for a follow up MRI also in April 2025. She should return in 6 months for follow-up examination, sooner p.r.n.. Coding Level of Care Code Est Pt Level 3 (44964) Complex EM visit Add On G2211 Diagnoses At high risk for breast cancer Z91.89 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
[2025-02-02 11:56] VITALS: BP 144/77; PULSE 81; BMI 22.7
--- OUTSIDE RECORDS SUMMARY | 2025-02-02 12:29 | XMS_ITS | Patient Health Record ---
Author Organization [facility] Address [address] [place] [address] Care Team Providers Care Radiographer Technologist Name Role Phone Grabiel FAITH, Bonnie Primary Care Provider Sav Shabazz Unavailable [phone] Allergies No Known Allergies Results Component Value [...] Problem Status W/U Status Risk Notes Problem [id number] Elevated liver function tests (R79.89) Active confirmed Problem [id number] 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) Active confirmed Problem [id number] Elevated alkaline phosphatase level (R74.8) Active confirmed Problem Elevated liver enzymes level (883094273) Elevated liver function tests (R94.5) Active confirmed Problem 818408019 Abnormal alkaline phosphatase test (R74.8) Active confirmed Vital Signs Blood pressure diastolic 82 mm Hg 06/13/2024 Height 5 ft 3 in in 06/13/2024 Blood pressure systolic 104 mm Hg 06/13/2024 Weight 127 lbs 06/13/2024 BMI 22.49 kg/m2 06/13/2024 Encounters Encounter Location Date Provider Diagnosis [facility] [address] [place] [phone] 06/13/2024 Sav Mari Elevated liver function tests R79.89 and Elevated alkaline phosphatase level R74.8 [facility] [address] [place] [phone] 04/03/2024 Sav Mari [facility] [address] [place] [phone] 06/06/2024 Sav Mari Assessments Encounter Date Diagnosis (ICD Code) Assessment Notes Treatment Notes Treatment Clinical Notes Section Notes 06/13/2024 Elevated liver function tests (ICD-10 - R79.89) Ask Dr. Dwyer if he wants you to stay on the Ursodiol senior living with your cholesterol medicine, Rosuvastatin. Overall, Ale [...] to actually speak with [place] Dw[place] [facility] [place] make sure that it is okay with him from a long-term standpoint. The other option would be to stop her statin cholesterol medication and use an alternative class of medication for the cholesterol. She advised me that she is going to be having monthly lab work for liver tests at [facility] and I advised her to try [...] to actually speak with Dr. Dwyer at [facility] to make sure that it is okay with him from a long-term standpoint. The other option would be to stop her statin cholesterol medication and use an alternative class of medication for the cholesterol. She advised me that she is going to be having monthly lab work for liver tests at [facility] and I advised her to try [...] to actually speak with Dr. Dwyer at [facility] to make sure that it is okay with him from a long-term standpoint. The other option would be to stop her statin cholesterol medication and use an alternative class of medication for the cholesterol. She advised me that she is going to be having monthly lab work for liver tests at [facility] and I advised her to try [...] Name:Sav Mari , 06/07/2025 09:20:00 AM, [address] [facility], [address], [place], [address], Insurance Providers Payer Name Payer Address Payer Phone Subscriber Number Group Number Insured Name Patient Relationship to Insured Coverage Start Date Coverage End Date [facility] [address] [place] [address] [phone] [id number] TERRY ANDREWS ALE Self - patient is the insured Medical (General) History Medical History History ICD Code Hypertension Precancerous cells in right breast Anemia in relation to Heredi tary Hemorrhagic Telangiectasias(Lbxhq-Qdvhz-Nyitb syndrome)--had a colonoscopy, upper endoscopy, and a SB capsule with Dr. Flores in [place]. She describes that the small bowel video capsule study did reveal multiple teleangiectasias in the small bowel which were not treated endoscopically. She has been on iron replacement therapy which has kept her hemoglobin stable. Panic attacks Hyperlipidemia--stopped statin beginning of 04/2023 Colonoscopy every 5 years--a lways neg for polyps--most recent was in 2019 Dr. So in [place] EGD was negative during a workup for her anemia and the HHT Denies CA,DM,CVA,Lung disease,renal dise ase Elevated alkaline phosphatas e of 500-600 in 2022. Laboratories were all negative for any autoimmune liver disease or any other etiologies of liver disease. A subsequent liver biopsy showed some bile duct injury and information but without any definitive evidence of primary biliary cholangitis.She was started on Ursodiol and Colchicine. She was seen by Dr. Dwyer at [facility] for second opinion in September of 2023. Her colchicine(09/2023) and then her ursodiol(10/2023) were subsequently stopped and her LFT's remained normal as of the 11/09/23 OV. She was started on Rosuvasta tin in the spring and the alkaline phosphatase whitney to about 3 times normal. She was started back on ursodiol by Dr. Dwyer at [facility] and her liver tests normalized despite remaining on the rosuvastatin. Surgical History Surgery Date(Month/Year) Biopsy of breast-- precancer ous cells--no treatment--sees Dr. Rosa 2011
== END 2025-02-02 11:59 | disposition home or self-care (01) ==
LOC: HO.HGS 11:33
PROVIDERS: PCP Nurse Practitioner Primary Care; Visit Provider Surgery
DX: Z91.89 Other specified personal risk factors, not elsewhere classified (principal); Z86.000 Personal history of in-situ neoplasm of breast
CPT/HCPCS: 99213; G2211

== ENCOUNTER → 2025-02-02 11:32 | Outpatient (BNVA) | payer MEDICARE, SELFPAY | PROVIDERS: PCP Nurse Practitioner Primary Care; Visit Provider Surgery | DX: Z86.000 Personal history of in-situ neoplasm of breast (principal); Z91.89 Other specified personal risk factors, not elsewhere classified | CPT/HCPCS: 99212 ==

== ENCOUNTER → 2025-05-14 10:24 | Outpatient (BNV) | payer MEDICARE, SELFPAY | PROVIDERS: PCP Nurse Practitioner Primary Care; Visit Provider Internal Medicine | DX: Z86.000 Personal history of in-situ neoplasm of breast (principal) | CPT/HCPCS: 77049 ==

== ENCOUNTER 2025-05-14 10:33 | Outpatient (REF) | payer MEDICARE, SELFPAY ==
--- OUTSIDE RECORDS SUMMARY | 2025-05-10 11:03 | XMS_ITS | Encounter Summary ---
Author Organization [facility] Address [address] [place] [phone] Phone Care Team Providers Care Human Service Technician Name Role Phone Bonnie Spain COURTESY BUS DRIVER Primary Care Provider [phone]- [phone] Encounter Details Date Type Department Care Team (Latest Contact Info) Description 05/10/2025 11:03 AM EDT - 05/10/2025 11:59 PM EDT Hospital Encounter [facility] [address] [place] [address] Kush Dwyer MD [address] [place] [id number] [email or web address] Discharge Disposition: Home or Self Care Social History Tobacco Use Types Packs/Day Years Used Date Smoking Tobacco: Never Assessed Education Answer Date Recorded Are you interested in more education? Not on [place] e 07/09/2023 Are you concerned about learning? Not on file 07/09/2023 No 07/09/2023 No 07/09/2023 Digital Access Answer Date Recorded No 07/09/2023 No 07/09/2023 Reliable internet access at home? Not on file 07/09/2023 Device with a working camera? Not on file Comments Unknown Sex and Gender Information Value Date Recorded Sex Assigned at Female 06/23/2023 4:21 PM EDT Legal Sex Female 4:17 PM EDT Gender Identity Female 06/23/2023 4:21 PM EDT Sexual Orientation Straight 06/23/2023 4: 21 PM EDT documented as of this encounter Medications at Time of Discharge azithromycin (ZITHROMAX) 250 MG tablet Take 250 mg by mouth. 09/01/2023 cholecalciferol (VITAMIN D3) 2,000 unit tablet Take 2,000 Units by mouth daily. colchicine (MITIGARE) 0.6 mg capsule Take 0.6 mg by mouth daily. 06/20/2023 ferrous sulfate 325 mg (65 mg [place] iron) tablet 1 tablet Orally Three times a Week lisinopril (PRINIVIL,ZESTRIL ) 10 MG tablet Take 10 mg by mouth daily. sertraline (ZOLOFT) 50 MG tablet Take 50 mg by mouth daily. ursodioL (ACTIGALL) 300 mg capsule 1 capsule. 06/20/2023 documented as of this encounter Plan of Treatment Upcoming Encounters Date Type Department Care Team (Late st Contact Info) Description 05/16/2025 2:30 PM EDT Office Visit [facility] [address] [place] [address], [address]th [place] [address] Kush Dwyer MD [address] [place] [phone] [email or web address] documented as of this encounter Procedures Procedure Name Priority Date/Time Associated Diagnosis Comments LFTS (HEPATIC PANEL) Routine 05/10/2025 11:36 AM EDT Elevated alkaline phosphatase level documented in this encounter Results * LFTs (hepatic panel) (05/10/2025 11:36 AM EDT) ALKALINE PHOSPHATASE 99 39 - 117 U/L [facility] TOTAL BILIRUBIN 0.6 0.0 - 1.2 mg/dL [facility] DIRECT BILIRUBIN 0.2 0.0 - 0.2 mg/dL [facility] Bilirubin (Indirect) 0.4 0 - 1.5 mg/dL [facility] AST 17 0 - 37 U/L [facility] ALT 10 0 - 40 U/L [facility] TOTAL PROTEIN 6.7 6.5 - 8.0 g/dL [facility] ALBUMIN 3.9 3.9 - 4.8 g/dL [facility] GLOBULIN 2.8 1 - 4.8 g/dL [facility] A/G Ratio 1.39 1.00 - 4.80 RATIO [facility] Blood 05/10/2025 11:3 6 AM EDT 05/10/2025 11:39 AM EDT us Kush Dwyer MD LAB BLOOD ORDERABLES Fin al Result [facility] [address] [place] [address] documented in this encounter Visit Diagnoses Diagnosis Elevated alkaline phosphatase level documented in this encounter Care Teams Human Service Technician Relationship Specialty Start Date End Date Bonnie Spain NP [address] [place] [address] PCP - General Nurse Practitioner 06/23/23 documented as of this encounter Additional Source Comments The information contained in this document represents components of the legal health record. It is not the complete legal health record.[facility]
--- NOTE | ~2025-05-14 | MR_ITS ---
EXAMINATION: MR BREAST WITHOUT AND WITH CONTRAST, BILATERAL CLINICAL INFORMATION: History of LCIS in the right breast status post excisional biopsy. COMPARISON: Comparison is made with relevant prior imaging. TECHNIQUE: MR imaging of the breast was performed using T1, T2 and fat saturated techniques. Dynamic multiphase imaging was also performed after the administration of intravenous gadolinium contrast agent. Computer generated 3D reconstruction and enhancement kinetic analysis was ulitized by the radiologist in the interpretation of this examination. FINDINGS: Breast composition: Heterogeneous fibroglandular breast tissue Background parenchymal enhancement: Moderate LEFT BREAST: Previously seen enhancing foci are not significantly changed from prior series [id number] image 45/122 lateral central breast and retroareolar region series [id number] image 44/122 slightly less conspicuous compared with prior's and not significantly changed overall. No other suspicious enhancing masses or areas of nonmass enhancement. No axillary or internal mammary adenopathy. RIGHT BREAST: Previously seen enhancing foci series 25371 image 47/122 and 50/122 in the retroareolar region slightly less conspicuous to not significantly changed from prior. No axillary or internal mammary adenopathy. Other: T2 hyperintense hepatic lesions are not as well seen on today's imaging and this is limited evaluation suboptimal for liver on these breast MRI images therefore if clinically concerned cross-sectional imaging should be performed for further evaluation. MR/MR breast BI wo/w con IMPRESSION: Bilateral scattered enhancing foci which are probably benign. Recommend 6 month follow-up for further evaluation of stability. ASSESSMENT: LEFT BREAST: BI-RADS 3-Probably Benign RIGHT BREAST: BI-RADS 3-Probably Benign RECOMMENDATIONS: 6 month follow-up breast MRI for further evaluation of stability. Yearly screening mammography. Electronically signed by: Marcy Colon DO 05/15/2025 04:20 PM EDT
--- OUTSIDE RECORDS SUMMARY | 2025-05-14 12:58 | XMS_ITS | Encounter Summary ---
Author Organization [facility] Address [address] [place] [address] Phone Care Team Providers Care Site Leasing Agent Name Role Phone Bonnie Spain NP Primary Care Provider [phone]- [phone] Encounter Details Date Type Department Care Team (Latest Contact Info) Description 05/09/2025 Orders Only [facility] [address] [facility], 5th [place] [address] Sandy Forte, BRENDAN [address] [place] [phone] [email or web address] Elevated alkaline phosphatase level (Primary Dx) Social History Tobacco Use Types [...] PM EDT documented as of this encounter Plan of Treatment Upcoming Encounters Date Type Department Care Team (Late st Contact Info) Description 05/16/2025 2:30 PM EDT Office Visit [facility] [address] [facility], [address]th [place] [address] Kush Dwyer MD [address] [facility] [address] [place] [address] [email or web address] documented as of this encounter Results * LFTs (hepatic panel) (05/10/2025 11:36 AM EDT) ALKALINE PHOSPHATASE 99 39 - 117 U/L [facility] TOTAL BILIRUBIN 0.6 0.0 - 1.2 mg/dL [facility] DIRECT BILIRUBIN 0.2 0.0 - 0.2 mg/dL [facility] Bilirubin (Indirect) 0.4 0 - 1.5 mg/dL [facility] AST 17 0 - 37 U/L [facility] ALT 10 0 - 40 U/L [facility] TOTAL PROTEIN 6.7 6.5 - 8.0 g/dL [facility] ALBUMIN 3.9 3.9 - 4.8 g/dL [facility] GLOBULIN 2.8 1 - 4.8 g/dL [facility] A/G Ratio 1.39 1.00 - 4.80 RATIO [facility] Blood 05/10/2025 11:3 6 AM EDT 05/10/2025 11:39 AM EDT us Kush Dwyer MD LAB BLOOD ORDERABLES Fin al Result Performing Organization Address City/State/[facility] Co de Phone Number [facility] [address] [place] [address] documented in this encounter Visit Diagnoses Diagnosis Elevated alkaline phosphatase level- Primary documented in this encounter Care Teams Site Leasing Agent Relationship Specialty Start Date End Date Bonnie Spain NP [address] [place] [address] PCP - General Nurse Practitioner 06/23/23 documented as of this encounter Additional Source Comments The information contained in this document represents components of the legal health record. It is not the complete legal health record.[facility]
--- OUTSIDE RECORDS SUMMARY | 2025-05-14 12:58 | XMS_ITS | Clinical Summary ---
Author Organization [facility] Address [address] [place] [phone] Phone Care Team Providers Care Automatic Toe Laster Name Role Phone Bonnie Spain NP Primary Care Provider +1- [phone] Allergies No known active allergies Medications ursodioL (ACTIGALL) 300 mg capsule 1 capsule. 06/20/2023 Active sertraline (ZOLOFT) 50 MG tablet Take 50 mg by mouth daily. Active lisinopril (PRINIVIL,ZESTRI L) 10 MG tablet Take 10 mg by mouth daily. Active ferrous sulfate 325 mg (65 mg [place] iron) tablet 1 tablet Orally Three times a Week Active colchicine (MITIGARE) 0.6 mg capsule Take 0.6 mg by mouth daily. 06/20/2023 Active cholecalciferol (VITAMIN D3) 2,000 unit tablet Take 2,000 Units by mouth daily. Active azithromycin (ZITHROMAX) 250 MG tablet Take 250 mg by mouth. 09/01/2023 Active Encounters Date Type Department Care Team Description 05/10/2025 11:03 AM EDT - 05/10/2025 11:59 PM EDT Hospital Encounter [facility] [address] [place] [address] Kush Dwyer MD Discharge Disposition: Home or Self Care 05/09/2025 Orders Only [facility] [address] [facility], 5th [place] [address] Sandy Forte RN Elevated alkaline phosphatase level (Primary Dx) from Last 3 Months Social History Tobacco Use Types Packs/Day Years [...] Orientation Straight 06/23/2023 4: 21 PM EDT Last Filed Vital Signs Vital Sign Reading Time Taken Comments Blood Pressure 148/87 09/29/2023 9:37 AM EST Pulse 76 09/29/2023 9:37 AM EST Temperature 36.3 C (97.4 F) 09/29/2023 9:37 AM EST Respiratory Rate - - Oxygen Saturation 98% 09/29/2023 9:37 AM EST Inhaled Oxygen Concentration - - Weight 56.7 kg (125 lb) 09/29/2023 9:37 AM EST Height - - Body Mass Index - - Plan of Treatment Upcoming Encounters Date Type Department Care Team (Late st Contact Info) Description 05/16/2025 2:30 PM EDT Office Visit [facility] [address] [place] [address], [address] [place] [address] Kush Dwyer MD [address] [place] [address] [address] [place] [address] [email or web address] Health Maintenance Due Date Last Done Comments Adult Td,Tdap Booster 1956 DEPRESSION SCREENING 1968 SMOKING Hx and SMOKELESS TOBACCO SCREENING 1969 HEPATITIS C SCREENING 1974 MAMMOGRAM 1996 COLOGUARD 2001 COLONOSCOPY 2001 COLORECTAL CANCER SCREENING 2001 FIT TEST 2001 FOBT 2001 SIGMOIDOSCOPY 2001 VIRTUAL COLONOSCOPY 2001 PNEUMOCOCCAL VACCINES (50+ years) (1 of 1 - PCV) 2006 ZOSTER VACCINES (1 of 2) 2006 OSTEOPOROSIS SCREENING INITI AL (ONE-TIME) 2021 CREATININE LEVEL 01/10/2025 01/11/2024, 11/02/2023 POTASSIUM LEVEL 01/10/2025 01/11/2024, 11/02/2023 INFLUENZA VACCINE (#1) 2025 COVID-19 VACCINE (1 - 2023-2 5 season) 2025 LIPID PANEL 01/10/2029 01/11/2024, 11/02/2023 RSV VACCINE (1 - 1-dose 75+ series) 2031 HEPATITIS A VACCINES Aged Out No long er eligible based on patient's age to complete this topic HIB VACCINES Aged Out No longer eligi ble based on patient's age to complete this topic MENINGOCOCCAL VACCINES (ACWY) Aged Out No longer eligible based on patient's age to complete this topic MENINGOCOCCAL VACCINES (B) Aged Out N o longer eligible based on patient's age to complete this topic Medical Devices Not on file Procedures Procedure Name Priority Date/Time Associated Diagnosis Comments LFTS (HEPATIC PANEL) Routine 05/10/2025 11:36 AM EDT Elevated alkaline phosphatase level LIPID PANEL Routine 01/11/2024 10:09 AM EDT Primary hypertension Mixed hyperlipidemia COMPREHENSIVE METABOLIC PANEL Routine 01/11/2024 10:09 AM EDT Primary hypertension Mixed hyperlipidemia from Last 3 Months or Most Recently Relevant to Health Maintenance Results * LFTs (hepatic panel) (05/10/2025 11:36 AM EDT) ALKALINE PHOSPHATASE 99 39 - 117 U/L [facility] TOTAL BILIRUBIN 0.6 0.0 - 1.2 mg/dL [facility] DIRECT BILIRUBIN 0.2 0.0 - 0.2 mg/dL [facility] Bilirubin (Indirect) 0.4 0 - 1.5 mg/dL [facility] AST 17 0 - 37 U/L [facility] ALT 10 0 - 40 U/L [facility] TOTAL PROTEIN 6.7 6.5 - 8.0 g/dL [facility] ALBUMIN 3.9 3.9 - 4.8 g/dL [facility] GLOBULIN 2.8 1 - 4.8 g/dL [facility] A/G Ratio 1.39 1.00 - 4.80 RATIO [facility] Blood 05/10/2025 11:3 6 AM EDT 05/10/2025 11:39 AM EDT us Kush Dwyer MD LAB BLOOD ORDERABLES Fin al Result [address] [address] * (ABNORMAL) Comprehensive metabolic panel (01/11/2024 10:09 AM EDT) SODIUM 144 133 - 146 mmol/L [facility] POTASSIUM 4.1 3.3 - 5.1 mmol/L [facility] CHLORIDE 107 96 - 108 mmol/L [facility] CO2 27 21 - 35 mmol/L [facility] BUN 11 6 - 19 mg/dL [facility] CREATININE 0.70 0.5 - 1.5 mg/dL [facility] GLUCOSE 89 70 - 99 mg/dL [facility] ALBUMIN 4.1 3.9 - 4.8 g/dL [facility] TOTAL PROTEIN 7.6 6.5 - 8.0 g/dL [facility] CALCIUM 10.2 8.4 - 10.3 mg/dL [facility] ALKALINE PHOSPHATASE 314(H) 39 - 117 U/L [facility] TOTAL BILIRUBIN 0.5 0.0 - 1.2 mg/dL [facility] AST 45(H) 0 - 37 U/L [facility] ALT 46(H) 0 - 40 U/L [facility] GLOBULIN 3.5 1 - 4.8 g/dL [facility] EGFR 95 >59 mL/min/1.7 3m2 [facility] Comment:Estimated glomerular filtration rate calculated using the CKD-EPI refit equation. ANION GAP 14 10 - 20 mmol/L [facility] Blood 01/11/2024 10:0 9 AM EDT 01/11/2024 10:13 AM EDT Bonnie Spain NP LAB BLOOD ORDERABLES Final Result Performing Organization Address [facility] Co de Phone Number [address] [address] * (ABNORMAL) Lipid panel (01/11/2024 10:09 AM EDT) HDL 64 mg/dL [facility] Comment: Interpretation <40 mg/dL: Low HDL cholesterol (major risk factor for CHD) Greater than or equal to 60 mg/dL: High HDL cholesterol ( negative risk factor for CHD) HDL - cholesterol is affected by a number of factors, e.g. smoking, excerise, hormones, sex and age. CHOLESTEROL 187 0 - 240 mg/dL [facility] TRIGLYCERIDES 86 30 - 160 mg/dL [facility] LDL 106 50 - 129 mg/dL [facility] Comment: LDL levels in terms of risk for coronary heart disease: <100 mg/dL: Optimal 100-129 mg/dL: Near or above optimal 130-159 mg/dL: Borderline high 160-189 mg/dL: High >190 mg/dL: Very High CARDIAC RISK RATIO 2.9(L) 3.3 - 4.4 [facility] Blood 01/11/2024 10:0 9 AM EDT 01/11/2024 10:12 AM EDT Bonnie Spain NP LAB BLOOD ORDERABLES Final Result Performing Organization Address City/[facility]/ZIP Co de Phone Number [address] [address] from Last 3 Months or Most Recently Relevant to Health Maintenance [place] BL[place] BLUE REPLACEMENT [facility] MEDICARE PPO BLUE REPLACEMENT [facility] MEDICARE PPO BLUE REPLACEMENT [facility] MEDICARE PPO BLUE REPLACEMENT Care Teams Automatic Toe Laster Relationship Specialty Start Date End Date Bonnie Spain NP [address] [place] [address] PCP - General Nurse Practitioner 06/23/23 Additional Source Comments The information contained in this document represents components of the legal health record. It is not the complete legal health record.[facility]
--- OUTSIDE RECORDS SUMMARY | 2025-05-14 12:58 | XMS_ITS | Clinical Summary ---
Author Organization [address] 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 For example, children's librarian or elderly care for an older adult? [...] 77 11/02/2024 9:11 AM EDT Temperature 36.4 C (97.6 F) 09/14/2024 11:02 AM EST Respiratory Rate - - Oxygen Saturation 98% 11/02/2024 9:11 AM EDT Inhaled Oxygen Concentration - - Weight 58.5 kg (129 lb) 10/24/2024 2:26 PM EST Height 157.5 cm (5' 2 ) 10/24/2024 2:26 PM EST Body Mass Index 23.59 10/24/2024 2:26 PM EST Plan of Treatment Upcoming Encounters Date Type Department Care Team (Late st Contact Info) Description 06/05/2025 11:00 AM EDT Office Visit Internal Medicine - [facility] [address] [place] [address] Bonnie Spain NP [address] [place] [address] Health Maintenance Due Date Last Done Comments Hepatitis A Vaccines (1 of 2 - Risk 2-dose series) 1975 Hepatitis B Vaccines (1 of 3 - Risk 3-dose series) 2016 RSV Immunization Adult Patients (1 - Risk 60-74 years 1-dose series) 2016 Medicare Annual Wellness Visit 09/22/2023 Osteoporosis Screening (Bone Density Screening) 09/22/2023 COVID-19 Vaccine ( - season) 2025 Influenza Vaccine (#1) 2025 , 06/23/2022, 06/08/2021, Additional history exists Colorectal Cancer Screening: Colonoscopy 06/26/2025 06/26/2020 Social Influencers of Health Screening 09/08/2025 09/08/2024 Hypertension/CHF/CAD Annual BMP Blood Test 10/17/2025 10/17/2024, 05/22/2024, 05/22/2024, Additional history exists Falls Risk Assessment 10/24/2025 10/24/2024, 024 Breast Cancer Screening 04/23/2026 04/23/2024 DTaP,Tdap,and Td Vaccines (2 - Td or Tdap) 08/23/2027 08/23/2017 Cholesterol Screening (Lipid Panel) 10/17/2029 10/17/2024, 05/22/2024, 05/22/2024, Additional history exists Hepatitis C Screening Completed 09/28/2022 Pneumococcal Vaccine: 50+ Years Completed 03/29/2023 Zoster Vaccines Completed 03/23/2024, 01/22/2024 Depression Screening Completed 10/17/2024, 05/16/20 HIB Vaccines Aged Out No longer eligi [...] Procedure Name Priority Date/Time Associated Diagnosis Comments EXTERNAL CLINICAL LAB 05/10/2025 BASIC METABOLIC PANEL Routine 10/17/2024 11:19 AM EST Essential (primary) hypertension LIPID PANEL WITH REFLEX TO DIRECT LDL Routine 10/17/2024 11:19 AM EST Other hyperlipidemia DEPRESSION SCREENING Routine 05/16/2024 FALLS RISK ASSESSMENT Routine 05/16/2024 HEPATITIS C SCREENING Routine 09/28/2022 COLONOSCOPY Routine 06/26/2020 from Last 3 Months or Most Recently Relevant to Health Maintenance Results * External clinical lab (05/10/2025) us Provider [facility] LAB BLOOD ORDERABLES Fin al Result * (ABNORMAL) Lipid panel with reflex to direct LDL (10/17/2024 11:19 AM EST) Cholesterol 200 0 - 200 mg/dL LAB CHEMISTRY METHOD 10/17/2024 2:59 PM EST [facility] Triglycerides 78 0 - 150 mg/dL LAB CHEMISTRY METHOD 10/17/2024 2:59 PM [facility] HDL 76 >=40 mg/dL LAB CHEMISTRY METHOD 10/17/2024 2:59 PM [facility] LDL Calculated 108(H) 0 - 100 mg/dL LAB CHEMISTRY METHOD 10/17/2024 2:59 PM [facility] VLDL Cholesterol Robert 15.6 mg/dL LAB CHEMISTRY METHOD 10/17/2024 2:59 PM [facility] Non HDL Chol. (LDL+VLDL) 124 <145 mg/dL LAB CHEMISTRY METHOD 10/17/2024 2:59 PM [facility] Chol/HDL Ratio 2.6 0.0 - 4.4 LAB CHEMISTRY METHOD 10/17/2024 2:59 PM [facility] Blood Venous blood specimen / Unknown Venipuncture / Unknown 10/17/2024 11:19 AM EST 10/17/2024 11:19 AM EST us Bonnie Spain NP LAB BLOOD ORDERABLES Final Resu lt [facility] [address] [place] [address], * (ABNORMAL) Basic metabolic panel (10/17/2024 11:19 AM EST) Sodium 142 133 - 145 mmol/L LAB CHEMISTRY METHOD 10/17/2024 3:00 PM [facility] Potassium 4.1 3.5 - 5.5 mmol/L LAB CHEMISTRY METHOD 10/17/2024 3:00 PM [facility] Chloride 106 96 - 110 mmol/L LAB CHEMISTRY METHOD 10/17/2024 3:00 PM [facility] CO2 34(H) 21 - 32 mmol/L LAB CHEMISTRY METHOD 10/17/2024 3:00 PM [facility] Anion Gap 2(L) 3 - 11 LAB CHEMISTRY METHOD 10/17/2024 3:00 PM [facility] Glucose 90 70 - 100 mg/dL LAB CHEMISTRY METHOD 10/17/2024 3:00 PM [facility] BUN 14 5 - 25 mg/dL LAB CHEMISTRY METHOD 10/17/2024 3:00 PM [facility] Creatinine 0.70 0.50 - 1.10 mg/dL LAB CHEMISTRY METHOD 10/17/2024 3:00 PM [facility] eGFR 94 >=60 mL/min/1. 73m2 LAB CHEMISTRY METHOD 10/17/2024 3:00 PM [facility] Comment:Calculation based on the Chronic Kidney Disease Epidemiology Collaboration (CKD-EPI) equation refit without adjustment for race. BUN/Creatinine Ratio 20.0 LAB CHEMISTRY METHOD 10/17/2024 3:00 PM [facility] Calcium 10.5 8.5 - 10.5 mg/dL LAB CHEMISTRY METHOD 10/17/2024 3:00 PM [facility] Blood Venous blood specimen / Unknown Venipuncture / Unknown 10/17/2024 11:19 AM EST 10/17/2024 11:19 AM EST Bonnie Spain MANAGER OF PRODUCTION LAB BLOOD ORDERABLES Final Resu lt [facility] [address] [place] [address], * Falls Risk Assessment (05/16/2024) Falls Risk Assessment ABSTRACTED Historical Provider MD HEALTH MAINTENANCE Final Result * Depression Screening (05/16/2024) Depression Screening ABSTRACTED Historical Provider MD HEALTH MAINTENANCE Final Result * Hepatitis C Screening (09/28/2022) Hepatitis C Screening ABSTRACTED Historical Provider HEALTH MAINTENANCE Final Result * Colonoscopy (06/26/2020) Colonoscopy NO INTERPRETATION , ABSTRACTED Anatomical Region Laterality Modality Other Historical Provider HEALTH MAINTENANCE Final Result from Last 3 Months or Most Recently Relevant to Health Maintenance Insurance BLUE CROSS - [place] MEDICARE ADVANTAGE Care Teams Account Services Analyst Relationship Specialty Start Date End Date Bonnie Spain NP [address] [facility] [place] [address] PCP - General 08/18/22
--- OUTSIDE RECORDS SUMMARY | 2025-05-14 12:58 | XMS_ITS | Patient Health Record ---
Author Organization [facility] Address [address] [place] [address] Care Team Providers Care Pecan Cleaner Name Role Phone Grabiel FAITH, Bonnie Primary Care Provider Sav Shabazz Unavailable [phone] Allergies No Known Allergies Results Component Value [...] tablet Orally Three times a Week Active Ursodiol 300 MG TAKE 1 CAPSULE BY MO UTH THREE TIMES DAILY for 90 Active Rosuvastatin Calcium 5 MG TAKE 1 TABLET BY MOUTH DAILY Oral for 90 Active Immunizations Vaccine Route Administration Date Status [...] Problem Status W/U Status Risk Notes Problem 775222041 Elevated liver function tests (R79.89) Active confirmed Problem 90358457 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) Active confirmed Problem 693811459 Elevated alkaline phosphatase level (R74.8) Active confirmed Problem Elevated liver enzymes level (982731587) Elevated liver function tests (R94.5) Active confirmed Problem 895672240 Abnormal alkaline phosphatase test (R74.8) Active confirmed Vital Signs Blood pressure diastolic 82 mm Hg 06/13/2024 Height 5 ft 3 in in 06/13/2024 Blood pressure systolic 104 mm Hg 06/13/2024 Weight 127 lbs 06/13/2024 BMI 22.49 kg/m2 06/13/2024 Encounters Encounter Location Date Provider Diagnosis [facility] [address] [place] [phone] 06/13/2024 Sav Mari Elevated liver function tests R79.89 and Elevated alkaline phosphatase level R74.8 [facility] [address] [place] [phone] 06/06/2024 Sav Mari [facility] [address] [place] [phone] 03/10/2025 Sav Mari Assessments Encounter Date Diagnosis (ICD Code) Assessment Notes Treatment Notes Treatment Clinical Notes Section Notes 06/13/2024 Elevated liver function tests (ICD-10 - R79.89) Ask Dr. Dwyer if he wants you to stay on the Ursodiol [facility] with your cholesterol medicine, Rosuvastatin. Overall, Ale [...] to actually speak with Dr. Dwyer at [facility] to make sure that it is okay with him from a long-term standpoint. The other option would be to stop her statin cholesterol medication and use an alternative class of medication for the cholesterol. She advised me that she is going to be having monthly lab work for liver tests at [facility] and I advised her to try [...] to actually speak with Dr. Dwyer at [facility] to make sure that it is okay with him from a long-term standpoint. The other option would be to stop her statin cholesterol medication and use an alternative class of medication for the cholesterol. She advised me that she is going to be having monthly lab work for liver tests at [facility] and I advised her to try [...] to actually speak with Dr. Dwyer at [facility] to make sure that it is okay with him from a long-term standpoint. The other option would be to stop her statin cholesterol medication and use an alternative class of medication for the cholesterol. She advised me that she is going to be having monthly lab work for liver tests at [facility] and I advised her to try [...] Name:Sav Mari , 06/07/2025 09:20:00 AM, [address] [facility], [address], [place], [address], Insurance Providers Payer Name Payer Address Payer Phone Subscriber Number Group Number Insured Name Patient Relationship to Insured Coverage Start Date Coverage End Date [facility] [address] [place] [address] [id number] ALE MARAVILLA Self - patient is the insured Medical (General) History Medical History History ICD Code Hypertension Precancerous cells in right breast 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 Flores in [place]. She describes that the small bowel video capsule study did reveal multiple teleangiectasias in the small bowel which were not treated endoscopically. She has been on iron replacement therapy which has kept her hemoglobin stable. Panic attacks Hyperlipidemia--stopped statin beginning of 04/2023 Colonoscopy every 5 years--a lways neg for polyps--most recent was in 2019 Dr. So in [place] EGD was negative during a workup for her anemia and the HHT Denies VT,DM,CVA,Lung disease,renal dise ase Elevated alkaline phosphatas e of 500-600 in 2022. Laboratories were all negative for any autoimmune liver disease or any other etiologies of liver disease. A subsequent liver biopsy showed some bile duct injury and information but without any definitive evidence of primary biliary cholangitis.She was started on Ursodiol and Colchicine. She was seen by Dr. Dwyer at [facility] for second opinion in September of 2023. Her colchicine(09/2023) and then her ursodiol(10/2023) were subsequently stopped and her LFT's remained normal as of the 11/09/23 OV. She was started on Rosuvasta tin in the spring and the alkaline phosphatase whitney to about 3 times normal. She was started back on ursodiol by Dr. Dwyer at [facility] and her liver tests normalized despite remaining on the rosuvastatin. Surgical History Surgery Date(Month/Year) Biopsy of breast-- precancer ous cells--no treatment--sees Dr. Rosa 2011
== END 2025-05-14 10:34 | disposition home or self-care (01) ==
LOC: HO.MRI 10:33
PROVIDERS: PCP Nurse Practitioner Primary Care; Visit Provider Surgery
DX: Z12.39 Encounter for other screening for malignant neoplasm of breast (principal); Z91.89 Other specified personal risk factors, not elsewhere classified; Z86.000 Personal history of in-situ neoplasm of breast
CPT/HCPCS: 77049; A9585

== ENCOUNTER 2025-05-21 08:36 | Outpatient (REF) | payer MEDICARE, SELFPAY ==
--- NOTE | ~2025-05-21 | MM_ITS ---
EXAMINATION: MM SCREENING DIGITAL BREAST TOMOSYNTHESIS, BILATERAL CLINICAL INFORMATION: Screening. Asymptomatic. COMPARISON: Mammography: Comparison is made with available priors TECHNIQUE: Digital breast mammography with tomosynthesis is performed in both the craniocaudal and mediolateral oblique views along with computer-aided detection (CAD). FINDINGS: The breasts are heterogeneously dense, which may obscure small masses. Right excisional biopsy changes stable. There are no significant masses, abnormal calcifications, or other abnormalities. MM/MM tomosynthesis screening BI IMPRESSION: No mammographic evidence of malignancy. ASSESSMENT: BI-RADS Category 2: Benign RECOMMENDATION: Routine annual mammography screening. 1 year F/U This examination should not preclude the clinical evaluation of a suspicious palpable abnormality. This patient's information was entered into a reminder system with a target due date for their next mammogram. Electronically signed by: Marcy Colon DO 05/22/2025 12:39 PM EDT
--- OUTSIDE RECORDS SUMMARY | 2025-05-21 09:04 | XMS_ITS | Clinical Summary ---
Author Organization [address] [facility] Address [address] [place] [phone] Phone Care Team Providers Care Barrel Inspector Tight Name Role Phone Bonnie Spain NP Primary Care Provider [phone] Allergies No known active allergies Medications cholecalciferol [...] 1 (one) time each day. 4 Active lisinopril-hydr oCHLOROthiazide (PRINZIDE,ZESTO RETIC) 20-12.5 mg per tablet Take 1 tablet by mouth 1 (one) time each day. 30 each 11 5 09/13/19 26 Active rosuvastatin (CRESTOR) 5 mg tablet Take 1 tablet (5 mg total) by mouth 1 (one) time each day. 90 tablet 5 Active rosuvastatin (CRESTOR) 5 mg tablet Take 1 tablet (5 mg total) by mouth 1 (one) time each day. 90 tablet 1 5 05/15/20 25 Discontinu ed(Reorder ) Active Problems Problem Noted Date Diagnosed Date Anxiety 09/13/2024 Primary biliary cholangitis ([facility] V24, 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 For example, child care specialist or elderly care for an older [...] Date Recorded What is your living situation? Unrecognized valu e 09/08/2024 Comments No Sex and Gender Information [...] AM EDT Office Visit [facility] Medicine - [facility] [address] [place] [address] Bonnie Spain NP [address] [place] [address] Health Maintenance Due Date Last Done Comments Hepatitis A Vaccines (1 of 2 - Risk 2-dose series) 1975 Hepatitis B Vaccines (1 of 3 - Risk 3-dose series) 2016 RSV Immunization Adult Patients (1 - Risk 60-74 years 1-dose series) 2016 Medicare Annual Wellness Visit 09/22/2023 Osteoporosis Screening (Bone Density Screening) 09/22/2023 COVID-19 Vaccine ( season) 2025 Influenza Vaccine (#1) 2025 , [...] PM [facility] Triglycerides 78 0 - 150 mg/dL LAB CHEMISTRY METHOD 10/17/2024 2:59 PM [facility] HDL 76 >=40 mg/dL LAB CHEMISTRY METHOD 10/17/2024 2:59 PM [facility] LDL Calculated 108(H) 0 - 100 mg/dL LAB CHEMISTRY METHOD 10/17/2024 2:59 PM [facility] VLDL Cholesterol Robert 15.6 mg/dL LAB [...] NP LAB BLOOD ORDERABLES Final Resu lt [facility] [address] [place] [address], * (ABNORMAL) Basic metabolic panel (10/17/2024 11:19 AM EST) Pathologist [facility] Sodium 142 133 - 145 mmol/L LAB CHEMISTRY METHOD 10/17/2024 3:00 PM [facility] Potassium 4.1 3.5 - 5.5 mmol/L LAB CHEMISTRY METHOD 10/17/2024 3:00 PM [facility] Chloride 106 96 - 110 mmol/L LAB CHEMISTRY METHOD 10/17/2024 3:00 PM EST [facility] CO2 34(H) 21 - 32 mmol/L LAB CHEMISTRY METHOD 10/17/2024 3:00 PM [facility] Anion Gap 2(L) 3 - 11 LAB CHEMISTRY METHOD 10/17/2024 3:00 PM [facility] Glucose 90 70 - 100 mg/dL [...] [facility] Comment:Calculation based on the Chronic Kidney [...] AM EST 10/17/2024 11:19 AM EST Bonnie Spani STEREOTYPE FINISHER LAB BLOOD ORDERABLES Final Resu lt [facility] [address] [place] [address], * Falls Risk Assessment (05/16/2024) Falls Risk [...] [place] - [place] MED[place] Care Teams Barrel Inspector Tight Relationship Specialty Start Date End Date Bonnie Spain NP [address] [place] [address] PCP - General 08/18/22
--- OUTSIDE RECORDS SUMMARY | 2025-05-21 09:04 | XMS_ITS | Patient Health Record ---
Author Organization [facility] Address [address] [place] [address] Care Team Providers Care Delicatessen Department Manager Name Role Phone Grabiel FAITH, Bonnie Primary Care Provider Sav Shabazz Unavailable [phone] Allergies No Known Allergies Results Component Value [...] Problem Status W/U Status Risk Notes Problem [id number] Elevated liver function tests (R79.89) Active confirmed Problem 96470936 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) Active confirmed Problem 355917871 Elevated alkaline phosphatase level (R74.8) Active confirmed Problem Elevated liver enzymes level (037755615) Elevated liver function tests (R94.5) Active confirmed Problem 115342416 Abnormal alkaline phosphatase test (R74.8) Active confirmed Vital Signs Blood pressure diastolic 82 mm Hg 06/13/2024 Height 5 ft 3 in in 06/13/2024 Blood pressure systolic 104 mm Hg 06/13/2024 Weight 127 lbs 06/13/2024 BMI 22.49 kg/m2 06/13/2024 Encounters Encounter Location Date Provider Diagnosis [facility] [address] [place] [phone] 06/13/2024 Sav Mari Elevated liver function tests R79.89 and Elevated alkaline phosphatase level R74.8 [facility] [address] [place] [phone] 06/06/2024 Sav Mari [facility] [address] [place] [phone] 03/10/2025 Sav Mari Assessments Encounter Date Diagnosis (ICD Code) Assessment Notes Treatment Notes Treatment Clinical Notes Section Notes 06/13/2024 Elevated liver function tests (ICD-10 - R79.89) Ask Dr. Dwyer if he wants you to stay on the Ursodiol [facility] with your cholesterol medicine, Rosuvastatin. Overall, Ale [...] to actually speak with Dr. Dwyer at [facility] to make sure that it is okay with him from a long-term standpoint. The other option would be to stop her statin cholesterol medication and use an alternative class of medication for the cholesterol. She advised me that she is going to be having monthly lab work for liver tests at [facility] and I advised her to try to [...] to actually speak with Dr. Dwyer at [facility] to make sure that it is okay with him from a long-term standpoint. The other option would be to stop her statin cholesterol medication and use an alternative class of medication for the cholesterol. She advised me that she is going to be having monthly lab work for liver tests at [facility] and I advised her to try to [...] to actually speak with Dr. Dwyer at [facility] to make sure that it is okay with him from a long-term standpoint. The other option would be to stop her statin cholesterol medication and use an alternative class of medication for the cholesterol. She advised me that she is going to be having monthly lab work for liver tests at [facility] and I advised her to try to [...] Name:Sav Mari , 06/07/2025 09:20:00 AM, [address] [facility], [address], [place], [address], Insurance Providers Payer Name Payer Address Payer Phone Subscriber Number Group Number Insured Name Patient Relationship to Insured Coverage Start Date Coverage End Date [facility] [address] [place] [address] [id number] ALE MARAVILLA Self - patient is the insured Medical (General) History Medical History History ICD Code Hypertension Precancerous cells in 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 Flores in [place]. She describes that the small bowel video capsule study did reveal multiple teleangiectasias in the small bowel which were not treated endoscopically. She has been on iron replacement therapy which has kept her hemoglobin stable. Panic attacks Hyperlipidemia--stopped statin beginning of 04/2023 Colonoscopy every 5 years--a lways neg for polyps--most recent was in 2019 Dr. So in [place] EGD was negative during a workup for her anemia and the HHT Denies NC,DM,CVA,Lung disease,renal dise ase Elevated alkaline phosphatas e of 500-600 in 2022. Laboratories were all negative for any autoimmune liver disease or any other etiologies of liver disease. A subsequent liver biopsy showed some bile duct injury and information but without any definitive evidence of primary biliary cholangitis.She was started on Ursodiol and Colchicine. She was seen by Dr. Dwyer at [facility] for second opinion in September of 2023. Her colchicine(09/2023) and then her ursodiol(10/2023) were subsequently stopped and her LFT's remained normal as of the 11/09/23 OV. She was started on Rosuvasta tin in the spring and the alkaline phosphatase whitney to about 3 times normal. She was started back on ursodiol by Dr. Dwyer at [facility] and her liver tests normalized despite remaining on the rosuvastatin. Surgical History Surgery Date(Month/Year) Biopsy of breast-- precancer ous cells--no treatment--sees Dr. Rosa 2011
--- OUTSIDE RECORDS SUMMARY | 2025-05-21 09:04 | XMS_ITS | Clinical Summary ---
Author Organization [facility] Address [address] [place] [phone] Phone Care Team Providers Care Central Services Tech Name Role Phone Bonnie Spain NP Primary Care Provider [phone] Allergies No known active allergies Medications ursodioL (ACTIGALL) 300 mg capsule 1 capsule. 2 caps morning 1 cap at night 3 Active sertraline (ZOLOFT) 50 MG tablet Take 50 mg by mouth daily. Active lisinopril (PRINIVIL,ZESTR IL) 10 MG tablet Take 10 mg by mouth daily. Active ferrous sulfate 325 mg (65 mg chipewwa iron) tablet 1 tablet Orally Three times a Week Active cholecalciferol (VITAMIN D3) 2,000 unit tablet Take 2,000 Units by mouth daily. Active azithromycin (ZITHROMAX) 250 MG tablet Take 250 mg by mouth. 4 Active rosuvastatin (CRESTOR) 5 MG tablet Take 5 mg by mouth daily. 5 Active colchicine (MITIGARE) 0.6 mg capsule Take 0.6 mg by mouth daily. 3 05/16/20 25 Discontinu ed(No longer taking) Encounters Date Type Department Care Team Description 05/16/2025 2:30 PM EDT Office Visit [facility] [address] [place] [address], [address] [place] [address] Kush Dwyer MD Primary biliary cholangitis (Primary Dx) 05/10/2025 11:03 AM EDT - 05/10/2025 11:59 PM EDT Hospital Encounter [facility] [address] [place] [address] Kush Dwyer MD Discharge Disposition: Home or Self Care 05/09/2025 Orders Only [facility] [address] [place] [address], [address] [place] [address] Sandy Forte RN Elevated alkaline phosphatase level [...] Sign Reading Time Taken Comments Blood Pressure 122/67 05/16/2025 2:16 PM EDT Pulse 71 05/16/2025 2:16 PM EDT Temperature 36.3 C (97.4 F) 09/29/2023 9:37 AM EST Respiratory Rate - - Oxygen Saturation 96% 05/16/2025 2:16 PM EDT Inhaled Oxygen Concentration - - Weight 59.1 kg (130 lb 6.4 oz) 05/16/2025 2:16 P M EDT Height - - Body Mass Index - - Plan of Treatment Upcoming Encounters Date Type Department Care Team (Late st Contact Info) Description 05/22/2026 2:00 PM EDT Office Visit [facility] [address] [place] [address], [address] [place] [address] Kush Dwyer MD [address] [facility] [address] [place] [address] [email or web address] 05/22/2026 2:30 PM EDT Office Visit [facility] [address] [facility], [address] [place] [address] Kush [facility] MD [facility] [address] [place] [address] [email or web address] Health Maintenance Due Date Last Done Comments Adult Td,Tdap Booster 1956 DEPRESSION SCREENING 1968 SMOKING Hx and SMOKELESS TOBACCO SCREENING 1969 HEPATITIS C SCREENING 1974 PNEUMOCOCCAL VACCINES (50+ years) (1 of 2 - PCV) 1975 MAMMOGRAM 1996 COLOGUARD 2001 COLONOSCOPY 2001 COLORECTAL CANCER SCREENING 2001 FIT TEST 2001 FOBT 2001 SIGMOIDOSCOPY 2001 VIRTUAL COLONOSCOPY 2001 ZOSTER VACCINES (1 of 2) 2006 OSTEOPOROSIS SCREENING INITI AL (ONE-TIME) 2021 CREATININE LEVEL 01/10/2025 01/11/2024, 11/02/2023 POTASSIUM LEVEL 01/10/2025 01/11/2024, 11/02/2023 INFLUENZA VACCINE (#1) 2025 COVID-19 VACCINE (1 - 2023-2 5 season) 2025 LIPID PANEL 10/17/2029 10/17/2024, 01/11/2024, 11/02/2023 RSV VACCINE (1 - 1-dose [...] ALKALINE PHOSPHATASE 99 39 - 117 U/L [facility] TOTAL BILIRUBIN 0.6 0.0 - 1.2 mg/dL [facility] DIRECT BILIRUBIN 0.2 0.0 - 0.2 mg/dL [facility] Bilirubin (Indirect) 0.4 0 - 1.5 mg/dL [facility] AST 17 0 - 37 U/L [facility] ALT 10 0 - 40 U/L [facility] TOTAL PROTEIN 6.7 6.5 - 8.0 g/dL [facility] ALBUMIN 3.9 3.9 - 4.8 g/dL [facility] GLOBULIN 2.8 1 - 4.8 g/dL [facility] A/G Ratio 1.39 1.00 - 4.80 RATIO [facility] Blood 05/10/2025 11:3 6 AM EDT 05/10/2025 11:39 AM EDT us Kush Dwyer MD LAB BLOOD ORDERABLES Fin al Result [facility] [address] [place] [address] * (ABNORMAL) Comprehensive metabolic panel (01/11/2024 10:09 AM EDT) SODIUM 144 133 - 146 mmol/L [facility] POTASSIUM 4.1 3.3 - 5.1 mmol/L [facility] CHLORIDE 107 96 - 108 mmol/L [facility] CO2 27 21 - 35 mmol/L [facility] BUN 11 6 - 19 mg/dL [facility] CREATININE 0.70 0.5 - 1.5 mg/dL [facility] GLUCOSE 89 70 - 99 mg/dL [facility] ALBUMIN 4.1 3.9 - 4.8 g/dL [facility] TOTAL PROTEIN 7.6 6.5 - 8.0 g/dL [facility] CALCIUM 10.2 8.4 - 10.3 mg/dL [facility] ALKALINE PHOSPHATASE 314(H) 39 - 117 U/L [facility] TOTAL BILIRUBIN 0.5 0.0 - 1.2 mg/dL [facility] AST 45(H) 0 - 37 U/L [facility] ALT 46(H) 0 - 40 U/L [facility] GLOBULIN 3.5 1 - 4.8 g/dL [facility] EGFR 95 >59 mL/min/1.7 3m2 [facility] Comment:Estimated glomerular filtration rate calculated using the CKD-EPI refit equation. ANION GAP 14 10 - 20 mmol/L [facility] Blood 01/11/2024 10:0 9 AM EDT 01/11/2024 10:13 AM EDT us Bonnie Spain NP LAB BLOOD ORDERABLES Final Result Performing Organization Address City/State/[facility] Co de Phone Number [facility] [address] [place] [address] * (ABNORMAL) Lipid panel (01/11/2024 10:09 AM EDT) HDL 64 mg/dL [facility] Comment: Interpretation <40 mg/dL: Low HDL cholesterol (major risk factor for CHD) Greater than or equal to 60 mg/dL: High HDL cholesterol ( negative risk factor for CHD) HDL - cholesterol is affected by a number of factors, e.g. smoking, excerise, hormones, sex and age. CHOLESTEROL 187 0 - 240 mg/dL [facility] TRIGLYCERIDES 86 30 - 160 mg/dL [facility] LDL 106 50 - 129 mg/dL [facility] Comment: LDL levels in terms of risk for coronary heart disease: <100 mg/dL: Optimal 100-129 mg/dL: Near or above optimal 130-159 mg/dL: Borderline high 160-189 mg/dL: High >190 mg/dL: Very High CARDIAC RISK RATIO 2.9(L) 3.3 - 4.4 [facility] Blood 01/11/2024 10:0 9 AM EDT 01/11/2024 10:12 AM EDT Bonnie Spain NP LAB BLOOD ORDERABLES Final Result [facility] [address] [place] [address] from Last 3 Months or Most Recently Relevant to Health Maintenance Insurance [employer] [place] MEDICARE PPO BLUE REPLACEMENT [facility] MEDICARE PPO BLUE REPLACEMENT [facility] MEDICARE PPO BLUE REPLACEMENT [facility] MEDICARE PPO BLUE REPLACEMENT [facility] MEDICARE PPO BLUE REPLACEMENT [employer] [place] MEDIC[place] P[place] BLUE REPLACEMENT Care Teams Central Services Tech Relationship Specialty Start Date End Date Bonnie Spain NP [address] [place] [id number] PCP - General Nurse Practitioner 06/23/23 Additional Source Comments The information contained in this document represents components of the legal health record. It is not the complete legal health record.[facility]
--- OUTSIDE RECORDS SUMMARY | 2025-05-21 09:04 | XMS_ITS | Encounter Summary ---
Author Organization [facility] Address [address] [place] [address] Phone Care Team Providers Care Catalog Specialist Name Role Phone Bonnie Spain NP Primary Care Provider [phone] Encounter Details Date Type Department Care Team (Latest Contact Info) Description 05/09/2025 Orders Only [facility] [address] [facility], 5th [place] [address] Sandy Forte, BRENDAN [address] [place] [id number] [email or web address] Elevated alkaline phosphatase level (Primary Dx) Social [...] Description 05/22/2026 2:00 PM EDT Office Visit [facility] [address] [facility], [address]th [place] [address] Kush Dwyer MD [address] [address] [email or web address] 05/22/2026 2:30 PM EDT Office Visit [facility] [address] [facility], 5th [place] [address] Kush Dwyer MD [address] [address] [email or web address] documented as of this encounter Results * LFTs (hepatic panel) (05/10/2025 11:36 AM EDT) ALKALINE PHOSPHATASE 99 39 - 117 U/L [facility] TOTAL BILIRUBIN 0.6 0.0 - 1.2 mg/dL [facility] DIRECT BILIRUBIN 0.2 0.0 - 0.2 mg/dL [facility] Bilirubin (Indirect) 0.4 0 - 1.5 mg/dL [facility] AST 17 0 - 37 U/L [facility] ALT 10 0 - 40 U/L [facility] TOTAL PROTEIN 6.7 6.5 - 8.0 g/dL [facility] ALBUMIN 3.9 3.9 - 4.8 g/dL [facility] GLOBULIN 2.8 1 - 4.8 g/dL [facility] A/G Ratio 1.39 1.00 - 4.80 RATIO [facility] Blood 05/10/2025 11:3 6 AM EDT 05/10/2025 11:39 AM EDT us Kush Dwyer MD LAB BLOOD ORDERABLES Fin al Result [facility] [address] [place] [address] documented in this encounter Visit Diagnoses Diagnosis Elevated alkaline phosphatase level- Primary documented in this encounter Care Teams Catalog Specialist Relationship Specialty Start Date End Date Bonnie Spain NP [address] [place] [address] PCP - General Nurse Practitioner 06/23/23 documented as of this encounter Additional Source Comments The information contained in this document represents components of the legal health record. It is not the complete legal health record.[facility]
== END 2025-05-21 08:37 | disposition home or self-care (01) ==
LOC: HO.MAMMO 08:36
PROVIDERS: Absent Provider Surgery; PCP Nurse Practitioner Primary Care; Visit Provider Nurse Practitioner Primary Care
DX: Z12.31 Encounter for screening mammogram for malignant neoplasm of breast (principal)
CPT/HCPCS: 77063; 77067

== ENCOUNTER → 2025-05-21 08:45 | Outpatient (BNV) | payer MEDICARE, SELFPAY | PROVIDERS: Absent Provider Surgery; PCP Nurse Practitioner Primary Care; Visit Provider Internal Medicine | DX: Z12.31 Encounter for screening mammogram for malignant neoplasm of breast (principal) | CPT/HCPCS: 77063; 77067 ==

== ENCOUNTER 2025-08-07 09:11 | Outpatient (AMB) | payer MEDICARE, SELFPAY ==
--- NOTE | 2025-08-07 09:19 | MHC.OFFVIS ---
Vital Signs 08/07/25 09:24 Height 5 ft 3 in Weight 129 lb 2 oz BMI 22.9 BP 129/74 Blood Pressure Location Rt brachial Position Sitting Pulse 85 Intake Visit Reasons: 6mth fuv breast exam Intake Note: Patient is seen in office for 6 month follow up visit breast exam. Pt c/o: denies nipple discharge, denies change in shape or size of breast, denies redness or hot to the touch senation. mm: 05/21/25 Musician Instrumental Required: No Accompanied by: Self / Same As Patient Allergies No Known Allergies (No Known Allergies*) Allergy (Unverified 08/07/25 09:25) Medication List - Last Reviewed 08/07/25 by GREGORIO Garrido ferrous sulfate (FeroSul) 325 mg PO DAILY lisinopril 10 mg PO DAILY rosuvastatin 5 mg PO DAILY sertraline 50 mg PO DAILY ursodiol 300 mg PO TID HPI Comments Details: 70-year-old female patient, previous patient of Dr. Soto returning for a six-month follow-up high risk breast examination. 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 She has been followed with yearly mammogram and breast MRI with twice yearly breast examinations. Since her last visit she denies any new palpable mass, nipple discharge, or enlarged lymph nodes. Her last mammogram of 05/21/2025 revealed no mammographic evidence of malignancy (BI-RADS 2). Six-month follow-up breast MRI performed on 05/14/2025 revealed bilateral enhancing scattered foci less conspicuous from the prior MRI and 6 month follow up MRI was recommended (BI-RADS 3). She is 1, menarche at the age of 14, menopause at 55. She feels well and denies any ongoing breast symptoms. 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 Generalized anxiety disorder Hereditary hemorrhagic telangiectasia Surgical History History of colonoscopy History of endoscopy (11/09/12) History of right breast biopsy (09/2010) Family History Mother History of skin cancer Father History of skin cancer Social History Alcohol intake: current Alcohol intake frequency: holidays/special occasions only Female Reproductive History Menstrual Age of Menarche: 14 Review of Systems Const All systems reviewed & are unremarkable except as noted in HPI and below Physical Exam Const General: no acute distress and well developed Nutritional Appearance: well nourished Orientation/consciousness: patient oriented x3 Limitations: no limitations Neck Neck: Yes normal visual inspection and Yes no JVD Lymphatic: no lymphadenopathy noted Chest Other: Left breast: No skin change, no nipple retraction, no nipple discharge, no palpable mass, no enlarged lymph nodes. Right breast: No skin change, no nipple retraction, no nipple discharge, no palpable mass, no enlarged lymph nodes Resp Effort & Inspection: normal respiratory effort GI Inspection: Yes normal to inspection Skin Other: Warm, dry, no rash Neuro Other: Mobility Assessment: 5 1. 3 meter assessment time (seconds) 2. 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 Code(s): Z86.000 - Personal history of in-situ neoplasm of breast Category: Surgical Plan: Plan 70-year-old female with a prior history of lobular carcinoma in situ being followed for high risk for breast cancer. She feels well and denies any ongoing breast symptoms. Examination today reveals no suspicious findings in either breast. Her breast MRI on 05/14/2025 revealed bilateral enhancing foci which are not as conspicuous as in the previous MRI. Six-month follow-up MRI is recommended to document stability (BI-RADS 3). She should return in 6 months for follow-up examination, sooner p.r.n.. Coding Level of Care Code Est Pt Level 3 (84856) Add On Problem Visit Only Diagnoses At high risk for breast cancer Z91.89 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
[2025-08-07 09:24] VITALS: BP 129/74; PULSE 85; BMI 22.9
--- OUTSIDE RECORDS SUMMARY | 2025-08-07 10:31 | XMS_ITS | Clinical Summary ---
Author Organization [facility] Address [address] [place] [address] Phone Care Team Providers Care Market Gardener Name Role Phone Bonnie Spain NP Primary Care Provider [phone]- [phone] Allergies No known active allergies Medications ursodioL (ACTIGALL) 300 mg capsule 1 capsule. 2 caps morning 1 cap at night 06/20/2023 Active sertraline (ZOLOFT) 50 MG tablet Take 50 mg by mouth daily. Active lisinopril (PRINIVIL,ZESTR IL) 10 MG tablet Take 10 mg by mouth daily. Active ferrous sulfate 325 mg (65 mg [place] iron) tablet 1 tablet Orally Three times a Week Active cholecalciferol (VITAMIN D3) 2,000 unit tablet Take 2,000 Units by mouth daily. Active azithromycin (ZITHROMAX) 250 MG tablet Take 250 mg by mouth. 09/01/2023 Active rosuvastatin (CRESTOR) 5 MG tablet Take 5 mg by mouth daily. 05/15/2025 Active Encounters Date Type Department Care Team Description 05/16/2025 2:30 PM EDT Office Visit [facility] [address] [facility], 5th [place] [address] Kush Dwyer MD Primary biliary cholangitis (Primary Dx) 05/10/2025 11:03 AM EDT - 05/10/2025 11:59 PM EDT Hospital Encounter [facility] [address] [place] [address] Kush Dwyer MD Discharge Disposition: Home or Self Care 05/09/[address] [facility] [address] [facility], 5th [place] [address] Sandy Forte RN Elevated alkaline phosphatase level [...] Description 05/22/2026 2:00 PM EDT Office Visit [facility] [address] [place] [address], 5[address] [place] [address] Kush Dwyer MD [address] [place] [address] [address] [place] [address] [email or web address] 05/22/2026 2:30 PM EDT Office Visit [facility] [address] [facility], 5th [place] [address] Kush Dwyer MD [address] [facility] [address] [place] [address] [email or web address] Health Maintenance Due Date Last Done [...] VACCINE (#1) 2025 COVID-19 VACCINE (1 - 2024-2 6 season) 2025 LIPID PANEL 10/17/2029 10/17/2024, 01/11/2024, [...] Primary hypertension Mixed hyperlipidemia COMPREHENSIVE METABOLIC PANEL (CMP) Routine 01/11/2024 10:09 AM EDT Primary hypertension Mixed hyperlipidemia from Last 3 Months or Most Recently Relevant to Health Maintenance Results * LFTs (hepatic panel) (05/10/2025 11:36 AM EDT) ALKALINE PHOSPHATASE 99 39 - 117 U/L [facility] TOTAL BILIRUBIN 0.6 0.0 - 1.2 mg/dL [facility] DIRECT BILIRUBIN 0.2 0.0 - 0.2 mg/dL [facility] Bilirubin (Indirect) 0.4 0 - 1.5 mg/dL [facility] AST 17 0 - 37 U/L [facility] ALT 10 0 - 40 U/L [facility] TOTAL PROTEIN 6.7 6.5 - 8.0 g/dL [facility] ALBUMIN 3.9 3.9 - 4.8 g/dL [facility] GLOBULIN 2.8 1 - 4.8 g/dL [facility] A/G Ratio 1.39 1.00 - 4.80 RATIO [facility] Blood 05/10/2025 11:3 6 AM EDT 05/10/2025 11:39 AM EDT us Kush Dwyer MD LAB BLOOD BKR ORDERABLES Final Result Performing Organization Address City/State/[facility] Co de Phone Number [address] [address] * (ABNORMAL) Comprehensive metabolic panel (01/11/2024 10:09 AM EDT) SODIUM 144 133 - 146 mmol/L [facility] POTASSIUM 4.1 3.3 - 5.1 mmol/L [facility] CHLORIDE 107 96 - 108 mmol/L [facility] CO2 27 21 - 35 mmol/L [facility] BUN 11 6 - 19 mg/dL [facility] CREATININE 0.70 0.5 - 1.5 mg/dL [facility] GLUCOSE 89 70 - 99 mg/dL [facility] ALBUMIN 4.1 3.9 - 4.8 g/dL [facility] TOTAL PROTEIN 7.6 6.5 - 8.0 g/dL [facility] CALCIUM 10.2 8.4 - 10.3 mg/dL [facility] ALKALINE PHOSPHATASE 314(H) 39 - 117 U/L [facility] TOTAL BILIRUBIN 0.5 0.0 - 1.2 mg/dL [facility] AST 45(H) 0 - 37 U/L [facility] ALT 46(H) 0 - 40 U/L [facility] GLOBULIN 3.5 1 - 4.8 g/dL [facility] EGFR 95 >59 mL/min/1.7 3m2 [facility] Comment:Estimated glomerular filtration rate calculated using the CKD-EPI refit equation. ANION GAP 14 10 - 20 mmol/L [facility] Blood 01/11/2024 10:0 9 AM EDT 01/11/2024 10:13 AM EDT Bonnie Spain NP LAB BLOOD BKR ORDERABLES F inal Result [facility] [address] [place], [place] [id number] * (ABNORMAL) Lipid panel (01/11/2024 10:09 AM EDT) HDL 64 mg/dL [facility] Comment: Interpretation <40 mg/dL: Low HDL cholesterol (major risk factor for CHD) Greater than or equal to 60 mg/dL: High HDL cholesterol ( negative risk factor for CHD) HDL - cholesterol is affected by a number of factors, e.g. smoking, excerise, hormones, sex and age. CHOLESTEROL 187 0 - 240 mg/dL [facility] TRIGLYCERIDES 86 30 - 160 mg/dL [facility] LDL 106 50 - 129 mg/dL [facility] Comment: LDL levels in terms of risk for coronary heart disease: <100 mg/dL: Optimal 100-129 mg/dL: Near or above optimal 130-159 mg/dL: Borderline high 160-189 mg/dL: High >190 mg/dL: Very High CARDIAC RISK RATIO 2.9(L) 3.3 - 4.4 [facility] Blood 01/11/2024 10:0 9 AM EDT 01/11/2024 10:12 AM EDT Bonnie Spani AUTO FORMER MACHINE OPERATOR LAB BLOOD BKR ORDERABLES F inal Result [address] [address] from Last 3 Months or Most Recently Relevant to Health Maintenance Insurance [place] MEDIC[place] PPO BLUE REPLACEMENT [place] BLUE [place]PLACEMENT [facility] MEDICARE PPO BLUE REPLACEMENT [facility] MEDICARE PPO BLUE REPLACEMENT [facility] MEDICARE PPO BLUE REPLACEMENT [place] [place] [place] BLUE REPLACEMENT Care Teams Market Gardener Relationship Specialty Start Date End Date Bonnie Spain NP [address] [place] [id number] PCP - General Nurse Practitioner 06/23/23 Additional Source Comments The information contained in this document represents components of the legal health record. It is not the complete legal health record.[facility]
--- OUTSIDE RECORDS SUMMARY | 2025-08-07 10:31 | XMS_ITS | Encounter Summary ---
Author Organization [facility] Address [address] [place] [address] Care Team Providers Care Promotions Specialist Name Role Phone Bonnie Spain NP Primary Care Provider [phone] Encounter Details Date Type Department Care Team (Late st Contact Info) Description 07/04/2025 Results Follow-Up [facility] [address] [facility] [place] [address] Bonnie Spain NP [address] [facility] [place] [address] Social History Tobacco Use Types Packs/Day Years Used Date Smoking Tobacco: Never Smokeless Tobacco: Never Alcohol Use Standard Drinks/Week Comments Yes 1 (1 standard drink = 0.6 oz pur e alcohol) Housing Instability Answer Date Recorde d Are you worried that in the next 2 months you may not have stable housing? No 07/04/2025 Food Access & Nutrition Answer Date Rec orded Do you have access to a vari ety of food including fruits and vegetables? Yes 07/04/2025 Access to Healthcare Answer Date Record ed Within the last 3 months, ho w many times did you visit the emergency department for your medical care? 0 07/04/2025 Health Literacy Answer Date Recorded How often do you need to hav e someone help you when you read instructions, pamphlets, or other written material from your doctor or pharmacy? Never 07/04/2025 Caregiver: How often do you need to have someone help you when you read instructions, pamphlets, or other written material from your doctor or pharmacy? Not on file 07/04/2025 Financial Risk Answer Date Recorded How hard is it for you to pa y for the very basics like food, housing, medical care, and air conditioning / heating? Not very hard 07/04/2025 Transportation Answer Date Recorded Has the lack of transportati on kept you from meetings, work, or from getting things needed for daily living? No Has the lack of transportati on kept you from medical appointments or from getting medications? No 07/04/2025 Social Isolation Answer Date Recorded How often do you feel lonely or isolated from th ose around you? Never 07/04/2025 Food Risk Answer Date Recorded Within the past 12 months we worried whether our food would run out before we got money to buy more. Never true 07/04/2025 Within the past 12 months th e food we bought just didn't last and we didn't have money to get more. Never true 07/04/2025 Dependent Care Answer Date Recorded Do you need help finding or paying for care for your loved ones. For example, child psychometrist or elderly care for an older adult? No 07/04/2025 Education Answer Date Recorded Do you think completing more education or training, like finishing a GED, going to college, or learning a trade, would be helpful for you? No 07/04/2025 Employment and Income Answer Date Recor ded During the last four weeks, have you been actively looking for work? No 07/04/2025 Living Situation Answer Date Recorded What is your living situation? Unrecognized valu e 07/04/2025 Comments No Sex and Gender Information Value Date Recorded Sex Assigned at Not on file Legal Sex Female 5:05 PM EST Gender Identity Not on file Sexual Orientation Not on file documented as of this encounter Progress Notes * Bonnie Spain NP - 07/04/2025 3:37 PM EST My chart message sent. documented in this encounter Plan of Treatment Upcoming Encounters Date Type Department Care Team (Late st Contact Info) Description 01/01/2026 8:45 AM EDT Office Visit [facility] [address] [facility] [place] [phone] Bonnie Spain NP [address] [place] [address] documented as of this encounter Visit Diagnoses Not on filedocumented in this encounter Additional Health Concerns Assessment Noted Time PHQ-9 Depression Total Score: 1 07/04/20 25 11:10 AM EST A fall risk assessment has been complete d for the patient 07/04/2025 11:08 AM EST documented as of this encounter Care Teams Promotions Specialist Relationship Specialty Start Date End Date Bonnie Spain NP [address] [facility] [place] [address] PCP - General 08/18/22 documented as of this encounter
--- OUTSIDE RECORDS SUMMARY | 2025-08-07 10:31 | XMS_ITS | Patient Health Record ---
Author Organization [facility] Address [address] [place] [address] Care Team Providers Care Riding Silks Custodian Name Role Phone Grabiel FAITH, Bonnie Primary Care Provider Sav Shabazz Unavailable [phone] Allergies No Known Allergies Reason For Referral No Information Medications Medication SIG (Take, Route, Frequency, Duration) Notes Start Date End Date Status Iron (Ferrous Sulfate) 325 (65 Fe) MG Tablet 1 tablet Orally Three times a Week Active Vitamin D3 25 MCG (1000 UT) Tablet 1 tablet Orally Once a day; Duration: 30 day(s) Active Lisinopril 20 MG Tablet TAKE 1 TABLET BY MOUTH EVERY DAY Orally Once a day Active Sertraline HCl 50 MG Tablet TAKE 1 TABLE T BY MOUTH DAILY Oral; Duration: 90 Active Ursodiol 300 MG Capsule TAKE 1 CAPSULE B Y MOUTH THREE TIMES DAILY; Duration: 90 Active Rosuvastatin Calcium 5 MG Tablet TAKE 1 TABLET BY MOUTH DAILY Oral; Duration: 90 Active Immunizations Vaccine Route Administration Date Status Comme nts Influenza Unknown 06/07/2024 Administered Pneumococcal Unknown 06/13/2024 Refused Social History Tobacco Use: Social History Observation Description Date Details (start date - stop date) Never Smoker NA - NA Social History Drug/Alcohol: Social Info Question Answer Notes AUDIT-C (Standard) Did you have a drink containing alcohol in the past year? No Points 0 Interpretation Negative Tobacco Use: Social Info Question Answer Notes Tobacco Use/Smoking Patient is a nonsmoker Additional Details Category Social Info Options Details Miscellaneous: Marital status: Occupation: retired Section Notes: Nonsmoker;very occasional on e drink Nonsmoker;very occasional on e drink Nonsmoker;very occasional on e drink Nonsmoker;very occasional on e drink Problems Problem Type SNOMED Code ICD Code Onset Dates Problem Status W/U Status Risk Notes Problem Colon cancer screening (686279394) Colon cancer screening (Z12.11) Active confirmed Problem Elevated liver enzymes level (920877556) Elevated liver function tests (R79.89) Active confirmed Problem Primary biliary cholangitis (46361223) 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) Active confirmed Problem Alkaline phosphatase raised (656187415) Elevated alkaline phosphatase level (R74.8) Active confirmed Problem Elevated liver enzymes level (150655175) Elevated liver function tests (R94.5) Active confirmed Problem Laboratory test result abnormal (761213188) Abnormal alkaline phosphatase test (R74.8) Active confirmed Vital Signs Temperature 96.9 degrees Fahrenheit 06/07/2025 Blood pressure diastolic 01 mm Hg 06/07/2025 Height 5 ft 3 in in 06/07/2025 Blood pressure systolic 001 mm Hg 06/07/2025 Weight 128.6 lbs 06/07/2025 BMI 22.78 kg/m2 06/07/2025 Procedures Procedure Date Ordered Date Performed Result Body Sit e COLONOSCOPY 06/07/2025 N/A Encounters Encounter Location Date Provider Diagnosis [facility] [address] [place] [phone] 06/07/2025 Sav Mari Elevated alkaline phosphatase level R74.8 ; Primary biliary cholangitis K74.3 and Colon cancer screening Z12.11 [facility] [address] [place] [phone] 03/10/2025 Sav Mari Assessments Encounter Date Diagnosis (ICD Code) Assessment Notes Treatment Notes Treatment Clinical Notes Section Notes 06/07/2025 Primary biliary cholangitis (ICD-10 - K74.3) Overall, Ale appears very well. She is not having any signs or symptoms of liver disease at this time. I did advise her to continue the ursodiol and she will continue to have LFTs about every 6 months or so through Dr. Dwyer. I did advise her to follow-up with both him and myself on a regular basis in that regard. I shall schedule her for a follow-up colonoscopy for 2025 for further screening in regard to her family history. We did review the rationale for that in regard to colon cancer prevention. Full consent has been obtained for this, including risks of bleeding and perforation. The procedure will be done with monitored anesthesia care. She was given the below instructions regarding adjustment of her medication for the procedure. Ale was comfortable with this plan. Thank you again for allowing me to participate in Ale's care. I shall continue to keep you advised of her progress. 06/07/2025 Elevated alkaline phosphatase level (ICD-10 - R74.8) Overall, Ale appears very well. She is not having any signs or symptoms of liver disease at this time. I did advise her to continue the ursodiol and she will continue to have LFTs about every 6 months or so through Dr. Dwyer. I did advise her to follow-up with both him and myself on a regular basis in that regard. I shall schedule her for a follow-up colonoscopy for 2025 for further screening in regard to her family history. We did review the rationale for that in regard to colon cancer prevention. Full consent has been obtained for this, including risks of bleeding and perforation. The procedure will be done with monitored anesthesia care. She was given the below instructions regarding adjustment of her medication for the procedure. Ale was comfortable with this plan. Thank you again for allowing me to participate in Ale's care. I shall continue to keep you advised of her progress. 06/07/2025 Colon cancer screening (ICD-10 - Z12.11) Overall, Ale appears very well. She is not having any signs or symptoms of liver disease at this time. I did advise her to continue the ursodiol and she will continue to have LFTs about every 6 months or so through Dr. Dwyer. I did advise her to follow-up with both him and myself on a regular basis in that regard. I shall schedule her for a follow-up colonoscopy for 2025 for further screening in regard to her family history. We did review the rationale for that in regard to colon cancer prevention. Full consent has been obtained for this, including risks of bleeding and perforation. The procedure will be done with monitored anesthesia care. She was given the below instructions regarding adjustment of her medication for the procedure. Ale was comfortable with this plan. Thank you again for allowing me to participate in Ale's care. I shall continue to keep you advised of her progress. Plan Of Treatment Pending Test Test Name Order Date COLONOSCOPY 06/07/2025 CHEM 7 PROFILE 05/13/2023 LIVER PROFILE 05/13/2023 LIVER PROFILE 06/07/2025 LIVER PROFILE 11/09/2023 LIVER PROFILE 06/13/2024 LIVER PROFILE 05/04/2023 LIVER PROFILE 06/20/2023 LIVER PROFILE 09/30/2023 LIVER PROFILE 12/12/2023 LIVER PROFILE 01/27/2024 IRON + IBC (FE) 05/04/2023 CRP 05/04/2023 [...] 06/15/2023 Next Appt Details Provider Name:Sav Pleitez Kamaljit , 09/03/2025 09:30:00 AM, [address] [place] [address], [phone], Insurance Providers Payer Name Payer Address Payer Phone Subscriber Number Group Number Insured Name Patient Relationship to Insured Coverage Start Date Coverage End Date [facility] [address] [place] [address] [id number] ALE MARAVILLA Self - patient is the insured Medical (General) History Medical History History ICD Code Hypertension Precancerous cells in right breast 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 Flores in [place]. She describes that the small bowel video capsule study did reveal multiple teleangiectasias in the small bowel which were not treated endoscopically. She has been on iron replacement therapy which has kept her hemoglobin stable. Panic attacks Hyperlipidemia- stopped statin beginning of 04/2023 Colonoscopy every 5 years- a lways neg for polyps- most recent was in 2019 Dr. So in [place] EGD was negative during a workup for her anemia and the HHT Denies NV,DM,CVA,Lung disease,renal dise ase Elevated alkaline phosphatas e of 500-600 in 2022. Laboratories were all negative for any autoimmune liver disease or any other etiologies of liver disease. A subsequent liver biopsy showed some bile duct injury and information but without any definitive evidence of primary biliary cholangitis.She was started on Ursodiol and Colchicine. She was seen by Dr. Dwyer at [facility] for second opinion in September of 2023. Her colchicine(09/2023) and then her ursodiol(10/2023) were subsequently stopped and her LFT's remained normal as of the 11/09/23 OV. She was started on Rosuvasta tin in the spring and the alkaline phosphatase whitney to about 3 times normal. She was started back on ursodiol by Dr. Dwyer at [facility] and her liver tests normalized despite remaining on the rosuvastatin. Surgical History Surgery Date(Month/Year) Biopsy of breast- precancer ous cells- no treatment- sees Dr. Rosa 2010
--- OUTSIDE RECORDS SUMMARY | 2025-08-07 10:31 | XMS_ITS | Clinical Summary ---
Author Organization [place] [address] [address] [facility] Address [address] [place], [place] [address] [address] Phone Care Team Providers Care Technical Lead Name Role Phone Bonnie Spain NP Primary Care Provider Allergies No known active allergies Medications cholecalciferol (VITAMIN D-3) 25 mcg (1,000 unit) tablet Take 1 tablet (1,000 Units total) by mouth 1 (one) time each day. 05/16/2024 Active ferrous sulfate 325 mg (65 mg elemental iron) tablet Take 1 tablet (325 mg total) by mouth every other day. 03/29/2023 Active rosuvastatin (CRESTOR) 5 mg tablet Take 1 tablet (5 mg total) by mouth 1 (one) time each day. 90 tablet 05/15/2025 Active lisinopril-hydr oCHLOROthiazide (PRINZIDE,ZESTO RETIC) 20-12.5 mg per tablet Take 1 tablet by mouth 1 (one) time each day. 90 each 1 06/06/2025 Active ursodioL (ACTIGALL) 300 mg capsule Take 1 capsule (300 mg total) by mouth. Take 2 capsule int he morning and 1 capsule in the evening Active sertraline (ZOLOFT) 50 mg tablet Take 1 tablet (50 mg total) by mouth 1 (one) time each day. 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 Essential (primary) hypertension 09/28/2022 Iron deficiency anemia due to chronic blood loss 09/28/2022 Other hyperlipidemia 09/28/2022 Encounters Date Type Department Care Team Description 07/04/2025 11:25 AM EST Lab Draw Station [address] [phone] Iron deficiency anemia due to chronic blood loss; Other hyperlipidemia; Screening for metabolic disorder; Encounter for lipid screening for cardiovascular disease; Screening for deficiency anemia 07/04/2025 10:45 AM EST Office Visit Internal Medicine - [address] [phone] Bonnie Spain NP Adult general medical examination (Primary Dx); Essential (primary) hypertension; Iron deficiency anemia due to chronic blood loss; Immunization due; Other hyperlipidemia; Anxiety; Screening for deficiency anemia; Screening for metabolic disorder; Encounter for lipid screening for cardiovascular disease 07/04/2025 Results Follow-Up Internal Medicine - [address] [phone] Bonnie Spain NP from Last 3 Months Immunizations Immunization Administration Dates Next Due Influenza Quadravalent, MDCK , 0.5ml, preservative free (Flucelvax) 6mo and older 05/13/2020 Influenza trivalent, 0.5mL (Fluad) 65yo and olde r 07/04/2025,06/08/2021 Influenza, Unspecified 04/23/2023,06/23/2022 Pneumococcal conjugate 20 va [...] defic iency anemia Arriaga-Osler syndrome (CMS/HCC V24) DX:Arraiga-Osler syndrome (HCC) Family History Medical History Relation [...] your loved ones. For example, child and youth program assistant or elderly care for an older adult? [...] on file Sexual Orientation Not on file Last Filed Vital Signs Vital Sign Reading Time Taken Comments Blood Pressure 124/85 07/04/2025 10:57 AM EST A Pulse 81 07/04/2025 10:57 AM EST Temperature 36.4 C (97.6 F) 09/14/2024 11:02 AM EST Respiratory Rate - - Oxygen Saturation 98% 11/02/2024 9:11 AM EDT Inhaled Oxygen Concentration - - Weight 57.9 kg (127 lb 9.6 oz) 07/04/2025 10:57 AM EST Height 157.5 cm (5' 2 ) 07/04/2025 10:57 AM EST Body Mass Index 23.34 07/04/2025 10:57 AM EST Plan of Treatment Upcoming Encounters Date Type Department Care Team (Late st Contact Info) Description 01/01/2026 8:45 AM EDT Office Visit Internal Medicine - [facility] [address], [place] [phone] Bonnie Spain NP [address] [place] [address] Health Maintenance Due Date Last Done Comments RSV Immunization Adult Patients (1 - Risk 50-74 years 1-dose series) 2006 Medicare Annual Wellness Visit 09/22/2023 COVID-19 Vaccine ( season) 2025 Colorectal Cancer Screening: Colonoscopy 06/26/2025 06/26/2020 Falls Risk Assessment 07/04/2026 07/04/2025, 024 Hypertension/CHF/CAD Annual BMP Blood Test 07/04/2026 07/04/2025, 10/17/2024, 05/22/2024, Additional history exists Social Influencers of Health Screening 07/04/2026 07/04/2025 Breast Cancer Screening 07/04/2027 07/04/20, 10/18/2024, 04/23/2024 DTaP,Tdap,and Td Vaccines (2 - Td or Tdap) 08/23/2027 08/23/2017 Osteoporosis Screening (Bone Density Screening) 12/21/2029 12/21/2024 Cholesterol Screening (Lipid Panel) 07/04/2030 07/04/2025, 10/17/2024, 05/22/2024, Additional history exists Hepatitis C Screening Completed 09/28/2022 Pneumococcal Vaccine: 50+ Years Completed 03/29/2023 Zoster Vaccines Completed 03/23/2024, 01/22/2024 Depression Screening Completed 07/04/2025, 05/16/20 Influenza Vaccine Completed 07/04/2025, , 04/23/2023, Additional history exists HIB Vaccines Aged Out No longer eligi ble based on patient's age to complete this topic HPV Vaccines Aged Out No longer eligi ble based on patient's age to complete this topic Hepatitis A Vaccines Discontinued Hepatitis B Vaccines Discontinued IPV Vaccines Aged Out No longer eligi [...] Procedure Name Priority Date/Time Associated Diagnosis Comments COMPLETE BLOOD COUNT Routine 07/04/2025 11:37 AM EST Screening for deficiency anemia COMPREHENSIVE METABOLIC PANEL Routine 07/04/2025 11:37 AM EST Screening for metabolic disorder LIPID PANEL WITH REFLEX TO DIRECT LDL Routine 07/04/2025 11:37 AM EST Other hyperlipidemia Screening for metabolic disorder Encounter for lipid screening for cardiovascular disease IRON AND TIBC Routine 07/04/2025 11:37 AM EST Iron deficiency anemia due to chronic blood loss EXTERNAL MAMMOGRAM REPORT 07/04/2025 EXTERNAL CLINICAL LAB 05/10/2025 DEPRESSION SCREENING Routine 05/16/2024 FALLS RISK ASSESSMENT Routine 05/16/2024 HEPATITIS C SCREENING Routine 09/28/2022 COLONOSCOPY Routine 06/26/2020 from Last 3 Months or Most Recently Relevant to Health Maintenance Results * Lipid panel with reflex to direct LDL (07/04/2025 11:37 AM EST) Cholesterol 174 0 - 200 mg/dL LAB CHEMISTRY METHOD 07/04/2025 2:33 PM [facility] Triglycerides 94 0 - 150 mg/dL LAB CHEMISTRY METHOD 07/04/2025 2:33 PM [facility] HDL 70 >=40 mg/dL LAB CHEMISTRY METHOD 07/04/2025 2:33 PM [facility] LDL Calculated 85 0 - 100 mg/dL LAB CHEMISTRY METHOD 07/04/2025 2:33 PM [facility] Comment:Estimated LDL Calcul ated using equation: Total cholesterol - HDL cholesterol - (Triglycerides/5) VLDL Cholesterol Robert 18.8 mg/dL LAB CHEMISTRY METHOD 07/04/2025 2:33 PM [facility] Non HDL Chol. (LDL+VLDL) 104 <145 mg/dL LAB CHEMISTRY METHOD 07/04/2025 2:33 PM [facility] Chol/HDL Ratio 2.5 0.0 - 4.4 LAB CHEMISTRY METHOD 07/04/2025 2:33 PM [facility] Blood Venous blood specimen / Unknown Venipuncture / Unknown 07/04/2025 11:37 AM EST 07/04/2025 11:37 AM EST Bonnie Spain NP LAB BLOOD ORDERABLES Final Resu lt Performing Organization Address [facility]/ZIP Co de Phone Number [facility] [address] [place] [address], [place] [phone] * Iron and TIBC (07/04/2025 11:37 AM EST) [facility] Iron 101 40 - 150 mcg/dL LAB CHEMISTRY METHOD 07/04/2025 2:33 PM EST [facility] TIBC 322 250 - 450 mcg/dL LAB CHEMISTRY METHOD 07/04/2025 2:33 PM EST [facility] Iron Saturation 31 15 - 50 % LAB CHEMISTRY METHOD 07/04/2025 2:33 PM EST [facility] Blood Venous blood specimen / Unknown Venipuncture / Unknown 07/04/2025 11:37 AM EST 07/04/2025 11:37 AM EST Bonnie Spain NP LAB BLOOD ORDERABLES Final Resu lt [facility] [address] [place] [address], [place] [phone] * (ABNORMAL) Complete blood count (07/04/2025 11:37 AM EST) [facility] WBC 4.3(L) 4.8 - 10.8 K/mcL LAB HEMETOLOGY METHOD 07/04/2025 1:52 PM EST [facility] RBC 4.00 3.80 - 4.80 M/mcL LAB HEMETOLOGY METHOD 07/04/2025 1:52 PM EST [facility] Hemoglobin 12.0 11.5 - 16.0 g/dL LAB HEMETOLOGY METHOD 07/04/2025 1:52 PM EST [facility] Hematocrit 37.2 35.0 - 47.0 % LAB HEMETOLOGY METHOD 07/04/2025 1:52 PM EST [facility] MCV 92.5 79.0 - 98.0 FL LAB HEMETOLOGY METHOD 07/04/2025 1:52 PM [facility] MCH 29.9 27.0 - 32.0 pcg LAB HEMETOLOGY METHOD 07/04/2025 1:52 PM EST [facility] MCHC 32.3 32.0 - 37.0 g/dL LAB HEMETOLOGY METHOD 07/04/2025 1:52 PM EST [facility] RDW 13.9 11.0 - 15.0 % LAB HEMETOLOGY METHOD 07/04/2025 1:52 PM [facility] Platelets 387 130 - 400 K/mcL LAB HEMETOLOGY METHOD 07/04/2025 1:52 PM EST [facility] MPV 9.1 7.0 - 11.0 FL LAB HEMETOLOGY METHOD 07/04/2025 1:52 PM EST [facility] NRBC 0.0 <1.0 % LAB HEMETOLOGY METHOD 07/04/2025 1:52 PM [facility] NRBC Absolute 0.00 <0.10 K/mcL LAB HEMETOLOGY METHOD 07/04/2025 1:52 PM EST [facility] Blood Venous blood specimen / Unknown Venipuncture / Unknown 07/04/2025 11:37 AM EST 07/04/2025 11:37 AM EST us Bonnie Spain NP LAB BLOOD ORDERABLES Final Resu lt [facility] [address] [place] [address], * Comprehensive metabolic panel (07/04/2025 11:37 AM EST) Sodium 141 133 - 145 mmol/L LAB CHEMISTRY METHOD 07/04/2025 2:33 PM [facility] Potassium 3.6 3.5 - 5.5 mmol/L LAB CHEMISTRY METHOD 07/04/2025 2:33 PM [facility] Chloride 103 96 - 110 mmol/L LAB CHEMISTRY METHOD 07/04/2025 2:33 PM [facility] CO2 30 21 - 32 mmol/L LAB CHEMISTRY METHOD 07/04/2025 2:33 PM [facility] Anion Gap 8 3 - 11 LAB CHEMISTRY METHOD 07/04/2025 2:33 PM [facility] Glucose 89 70 - 100 mg/dL LAB CHEMISTRY METHOD 07/04/2025 2:33 PM [facility] BUN 11 5 - 25 mg/dL LAB CHEMISTRY METHOD 07/04/2025 2:33 PM [facility] Creatinine 0.73 0.50 - 1.10 mg/dL LAB CHEMISTRY METHOD 07/04/2025 2:33 PM [facility] eGFR 89 >=60 mL/min/1. 73m2 LAB CHEMISTRY METHOD 07/04/2025 2:33 PM [facility] Comment:Calculation based on the Chronic Kidney Disease Epidemiology Collaboration (CKD-EPI) equation refit without adjustment for race. BUN/Creatinine Ratio 15.1 LAB CHEMISTRY METHOD 07/04/2025 2:33 PM [facility] Calcium 10.0 8.5 - 10.5 mg/dL LAB CHEMISTRY METHOD 07/04/2025 2:33 PM [facility] AST (SGOT) 20 10 - 42 unit/L LAB CHEMISTRY METHOD 07/04/2025 2:33 PM [facility] ALT (SGPT) 21 10 - 60 unit/L LAB CHEMISTRY METHOD 07/04/2025 2:33 PM [facility] Alkaline Phosphatase 120 42 - 121 unit/L LAB CHEMISTRY METHOD 07/04/2025 2:33 PM EST [facility] Total Protein 7.1 6.0 - 8.0 g/dL LAB CHEMISTRY METHOD 07/04/2025 2:33 PM EST [facility] Albumin 3.7 3.2 - 5.0 g/dL LAB CHEMISTRY METHOD 07/04/2025 2:33 PM EST [facility] Total Bilirubin 0.9 0.0 - 1.4 mg/dL LAB CHEMISTRY METHOD 07/04/2025 2:33 PM EST [facility] Blood Venous blood specimen / Unknown Venipuncture / Unknown 07/04/2025 11:37 AM EST 07/04/2025 11:37 AM EST Bonnie Spain HYPOID GEAR TESTER LAB BLOOD ORDERABLES Final Resu lt [facility] [address] [place] [address], * External Mammogram Report (07/04/2025) Anatomical Region Laterality Modality Mammography Provider [facility] BI PROCEDURES Final Result * External clinical lab (05/10/2025) Provider [facility] LAB BLOOD ORDERABLES Fin al Result * Falls Risk Assessment (05/16/2024) [facility] Falls Risk Assessment ABSTRACTED Historical Provider HEALTH MAINTENANCE Final Result * Depression Screening (05/16/2024) [facility] Depression Screening ABSTRACTED Historical Provider HEALTH MAINTENANCE Final Result * Hepatitis C Screening (09/28/2022) [facility] Hepatitis C Screening ABSTRACTED Historical Provider HEALTH MAINTENANCE Final Result * Colonoscopy (06/26/2020) [facility] Colonoscopy NO INTERPRETATION , ABSTRACTED Anatomical Region Laterality Modality Other us Historical Provider HEALTH MAINTENANCE Final Result from Last 3 Months or Most Recently Relevant to Health Maintenance Insurance [employer] - [place] MEDICARE ADVANTAGE Care Teams Technical Lead Relationship Specialty Start Date End Date Bonnie Spain NP [address] [place] [address] PCP - General 08/18/22
== END 2025-08-07 09:36 | disposition home or self-care (01) ==
LOC: HO.HGS 09:12
PROVIDERS: PCP Nurse Practitioner Primary Care; Visit Provider Surgery
DX: Z91.89 Other specified personal risk factors, not elsewhere classified (principal); Z86.000 Personal history of in-situ neoplasm of breast
CPT/HCPCS: 99213; G2211

== ENCOUNTER → 2025-08-07 09:11 | Outpatient (BNVA) | payer MEDICARE, SELFPAY | PROVIDERS: PCP Nurse Practitioner Primary Care; Visit Provider Surgery | DX: Z91.89 Other specified personal risk factors, not elsewhere classified (principal); Z86.000 Personal history of in-situ neoplasm of breast | CPT/HCPCS: 99212 ==